=== PATIENT | male | born 1960 | race Caucasian/White ===

== ENCOUNTER → 2017-09-08 | Outpatient (CLI) | payer MEDICARE ==
[~2017-09-08] MED LIST: AMOCLA875 PO; AMOX1XR PO; ASPI81CH PO; ATOR10 PO; BREO ELLIPTA 11 EACH IH; CEFU50SU PO; DIGO.125 PO; DULO30 PO; Duoneb 2.5-0.5 M3 ML INH; ELIQUIS2.5 MG PO; FURO20 PO; FURO40 PO; GABA300 PO; GUAI600T33 PO; HYDR1TAB94 PO; LEVFLO500 PO; LEVO750 PO; LISI20 PO; Lanoxin125 MCG PO; MAGOXI400 PO; METF500 PO; METO100ER PO; METO50ER PO; MIRALAX17 GM PO; Micro-K10 MEQ; Norco 5-325 Ta1 EACH PO; OXYACE5T PO; OXYC10TA19 PO; POTASSIUM CHLO20 MEQ PO; POTCHL20ER PO; Pedi-Dri 100,0060 GM TOP; Percocet 10-321 EACH PO; Toprol Xl50 MG PO
== END | disposition home or self-care (01) ==
LOC: LAB 15:30
DX: L03.116 Cellulitis of left lower limb (principal)
CPT/HCPCS: 87070; 87205

== ENCOUNTER 2017-09-24 18:47 | Inpatient (IN) | payer MEDICARE ==
[~2017-09-24] VITALS: Ht 175.3 cm; Wt 146.0 kg
[~2017-09-24 18:47] MED LIST changes: -BREO ELLIPTA 11 EACH IH; -CEFU50SU PO
[2017-09-24 18:59] LABS: PCO2 Arterial 48.3 mmHg (35-45); PO2 Arterial 155 mmHg (80-100); pH Blood Arterial 7.28 (7.35-7.45)
[2017-09-24 19:08] LABS: BASOPHILS ABSOLUTE AUTO 0.06 K/mm3 (0.00-0.23); BASOPHILS PERCENT AUTO 1 % (0-2); EOSINOPHILS ABSOLUTE AUTO 0.05 K/mm3 (0.00-0.68); EOSINOPHILS PERCENT AUTO 1 % (0-6); Hematocrit 50.7 % (37.0-53.0); Hemoglobin 14.5 g/dL (13.5-17.5); IMMATURE GRAN ABSOLUTE AUTO 0.04 K/mm3 (0.00-0.10); IMMATURE GRAN PERCENT AUTO 1 % (0-1); LYMPHOCYTES ABSOLUTE AUTO 1.23 K/mm3 (0.84-5.20); LYMPHOCYTES PERCENT AUTO 18 % (21-46); MONOCYTES PERCENT AUTO 7 % (4-13); Mean Corpuscular HGB 25.2 pg (26.0-34.0); Mean Corpuscular HGB Conc 28.6 g/dL (31.5-36.5); Mean Corpuscular Volume 88 fL (80-100); Mean Platelet Volume 9.5 fL (9.1-12.4); NEUTROPHILS ABSOLUTE AUTO 4.94 K/mm3 (1.96-9.15); NEUTROPHILS PERCENT AUTO 73 % (41-73); Platelet Count 280 K/mm3 (150-400); RDW Coefficient Variation 18.1 % (11.7-14.2); RDW Standard Deviation 54.5 fL (35.1-46.3); Red Blood Cell Count 5.76 M/mm3 (4.30-5.90); White Blood Cell Count 6.82 K/mm3 (4.00-11.30)
[2017-09-24] MEDS ORDERED: BREO ELLIPTA 11 EACH IH (19:18)
[2017-09-24 19:22] LABS: International Normalized Ratio 1.23; Prothrombin Time Results 12.9 Sec (9.7-11.5)
[2017-09-24 19:29] LABS: Alanine Aminotransfer (ALT/SGP 15 U/L (12-78); Albumin, Blood 2.4 g/dL (3.4-5.0); Albumin/Globulin Ratio 0.5 (0.8-1.8); Alk Phos 166 U/L (50-136); Anion Gap 9 mmol/L (6-16); Aspartate Aminotrans (AST/SGOT 20 U/L (12-37); Blood Urea Nitrogen 17 mg/dL (8-24); Bun/Creatinine Ratio 19.1 (12.0-20.0); CO2, Blood 22 mmol/L (21-32); Chloride, Blood 109 mmol/L (98-108); Creatinine, Blood 0.89 mg/dL (0.60-1.20); Globulin, Blood 4.9 g/dL (2.2-4.0); Glomerular Filtration Rate >60 (60-); Glucose, Blood 111 mg/dL (70-99); Sodium, Blood 140 mmol/L (136-145); Total Protein, Blood 7.3 g/dL (6.4-8.2); Troponin I 0.018 ng/mL (0.000-0.040)
[2017-09-24 20:15] LABS: Influenza A Negative (NEGATIVE); Influenza B Negative (NEGATIVE)
[2017-09-25 05:01] LABS: BASOPHILS ABSOLUTE AUTO 0.01 K/mm3 (0.00-0.23); BASOPHILS PERCENT AUTO 0 % (0-2); EOSINOPHILS PERCENT AUTO 0 % (0-6); Hematocrit 45.7 % (37.0-53.0); Hemoglobin 13.4 g/dL (13.5-17.5); IMMATURE GRAN ABSOLUTE AUTO 0.03 K/mm3 (0.00-0.10); IMMATURE GRAN PERCENT AUTO 1 % (0-1); LYMPHOCYTES ABSOLUTE AUTO 0.32 K/mm3 (0.84-5.20); LYMPHOCYTES PERCENT AUTO 7 % (21-46); MONOCYTES ABSOLUTE AUTO 0.07 K/mm3 (0.16-1.47); MONOCYTES PERCENT AUTO 1 % (4-13); Mean Corpuscular HGB 24.9 pg (26.0-34.0); Mean Corpuscular HGB Conc 29.3 g/dL (31.5-36.5); Mean Platelet Volume 9.2 fL (9.1-12.4); NEUTROPHILS PERCENT AUTO 91 % (41-73); Platelet Count 288 K/mm3 (150-400); RDW Coefficient Variation 17.2 % (11.7-14.2); RDW Standard Deviation 53.1 fL (35.1-46.3); Red Blood Cell Count 5.39 M/mm3 (4.30-5.90); White Blood Cell Count 4.83 K/mm3 (4.00-11.30)
[2017-09-25 05:07] LABS: Mean Corpuscular Volume 85 fL (80-100)
[2017-09-25 05:40] LABS: Alanine Aminotransfer (ALT/SGP 20 U/L (12-78); Albumin, Blood 2.8 g/dL (3.4-5.0); Albumin/Globulin Ratio 0.5 (0.8-1.8); Alk Phos 193 U/L (50-136); Anion Gap 7 mmol/L (6-16); Aspartate Aminotrans (AST/SGOT 31 U/L (12-37); Bilirubin, Total 1.1 mg/dL (0.1-1.0); Blood Urea Nitrogen 21 mg/dL (8-24); Bun/Creatinine Ratio 20.4 (12.0-20.0); CO2, Blood 27 mmol/L (21-32); Chloride, Blood 101 mmol/L (98-108); Creatinine, Blood 1.03 mg/dL (0.60-1.20); Globulin, Blood 5.8 g/dL (2.2-4.0); Glomerular Filtration Rate >60 (60-); Glucose, Blood 154 mg/dL (70-99); Potassium, Blood 4.6 mmol/L (3.5-5.5); Sodium, Blood 135 mmol/L (136-145); Total Protein, Blood 8.6 g/dL (6.4-8.2)
[2017-09-25 05:43] LABS: Calcium, Blood 8.7 mg/dL (8.5-10.1)
[2017-09-25 11:45] LABS: Influenza A Negative (NEGATIVE); Influenza B Negative (NEGATIVE)
[2017-09-25 20:57] LABS: Vancomycin, Trough 35.6 ug/mL (5.0-10.0)
[2017-09-26 05:20] LABS: BASOPHILS ABSOLUTE AUTO 0.03 K/mm3 (0.00-0.23); BASOPHILS PERCENT AUTO 0 % (0-2); EOSINOPHILS ABSOLUTE AUTO 0.03 K/mm3 (0.00-0.68); EOSINOPHILS PERCENT AUTO 0 % (0-6); Hematocrit 44.7 % (37.0-53.0); Hemoglobin 13.5 g/dL (13.5-17.5); IMMATURE GRAN ABSOLUTE AUTO 0.04 K/mm3 (0.00-0.10); IMMATURE GRAN PERCENT AUTO 0 % (0-1); LYMPHOCYTES ABSOLUTE AUTO 0.95 K/mm3 (0.84-5.20); LYMPHOCYTES PERCENT AUTO 9 % (21-46); MONOCYTES ABSOLUTE AUTO 1.11 K/mm3 (0.16-1.47); MONOCYTES PERCENT AUTO 11 % (4-13); Mean Corpuscular HGB Conc 30.2 g/dL (31.5-36.5); Mean Corpuscular Volume 83 fL (80-100); Mean Platelet Volume 9.6 fL (9.1-12.4); NEUTROPHILS ABSOLUTE AUTO 8.36 K/mm3 (1.96-9.15); NEUTROPHILS PERCENT AUTO 79 % (41-73); Platelet Count 296 K/mm3 (150-400); RDW Coefficient Variation 17.2 % (11.7-14.2); RDW Standard Deviation 50.8 fL (35.1-46.3); White Blood Cell Count 10.52 K/mm3 (4.00-11.30)
[2017-09-26 05:47] LABS: Anion Gap 8 mmol/L (6-16); Blood Urea Nitrogen 29 mg/dL (8-24); Bun/Creatinine Ratio 25.7 (12.0-20.0); CO2, Blood 27 mmol/L (21-32); Calcium, Blood 8.7 mg/dL (8.5-10.1); Chloride, Blood 99 mmol/L (98-108); Creatinine, Blood 1.13 mg/dL (0.60-1.20); Glomerular Filtration Rate >60 (60-); Glucose, Blood 93 mg/dL (70-99); Potassium, Blood 4.1 mmol/L (3.5-5.5); Sodium, Blood 134 mmol/L (136-145)
[2017-09-26 05:50] LABS: Vancomycin, Random 25.1 ug/mL
[2017-09-26 21:33] LABS: Vancomycin, Random 15.4 ug/mL
[2017-09-27 05:28] LABS: Anion Gap 7 mmol/L (6-16); Blood Urea Nitrogen 31 mg/dL (8-24); CO2, Blood 29 mmol/L (21-32); Chloride, Blood 97 mmol/L (98-108); Creatinine, Blood 1.24 mg/dL (0.60-1.20); Glomerular Filtration Rate >60 (60-); Glucose, Blood 91 mg/dL (70-99); Potassium, Blood 4.2 mmol/L (3.5-5.5); Sodium, Blood 133 mmol/L (136-145)
[2017-09-27 21:04] LABS: Vancomycin, Trough 20.5 ug/mL (5.0-10.0)
[2017-09-28] MEDS ORDERED: CEFU50SU PO (12:03)
[2018-04-23] MEDS ORDERED: METO50ER PO (07:51)
== END 2017-09-28 14:27 | disposition home or self-care (01) | DRG 193 ==
LOC: ER 18:47 → SURS 20:49
PROVIDERS: Emergency Medicine; Family Medicine; Internal Medicine; Pharmacist
DX: J18.9 Pneumonia, unspecified organism (principal); J96.01 Acute respiratory failure with hypoxia; E11.610 Type 2 diabetes mellitus with diabetic neuropathic arthropathy; E11.65 Type 2 diabetes mellitus with hyperglycemia; R16.1 Splenomegaly, not elsewhere classified; E66.01 Morbid (severe) obesity due to excess calories; J44.0 Chronic obstructive pulmonary disease with (acute) lower respiratory infection; I83.209 Varicose veins of unspecified lower extremity with both ulcer of unspecified site and inflammation; L97.919 Non-pressure chronic ulcer of unspecified part of right lower leg with unspecified severity; L97.929 Non-pressure chronic ulcer of unspecified part of left lower leg with unspecified severity; Z68.43 Body mass index [BMI] 50.0-59.9, adult; I11.0 Hypertensive heart disease with heart failure; I50.9 Heart failure, unspecified; I48.2 Chronic atrial fibrillation; F17.210 Nicotine dependence, cigarettes, uncomplicated; G47.33 Obstructive sleep apnea (adult) (pediatric); E78.5 Hyperlipidemia, unspecified; F32.9 Major depressive disorder, single episode, unspecified; F41.9 Anxiety disorder, unspecified; M19.90 Unspecified osteoarthritis, unspecified site; I89.0 Lymphedema, not elsewhere classified; I25.10 Atherosclerotic heart disease of native coronary artery without angina pectoris; R00.0 Tachycardia, unspecified; R19.7 Diarrhea, unspecified; Z79.82 Long term (current) use of aspirin; Z79.899 Other long term (current) drug therapy; Z79.01 Long term (current) use of anticoagulants; Z79.84 Long term (current) use of oral hypoglycemic drugs; Z89.422 Acquired absence of other left toe(s); Z88.1 Allergy status to other antibiotic agents
CPT/HCPCS: 36415; 36600; 71045; 71046; 71260; 80048; 80053; 80202; 82803; 82947; 83605; 83880; 84484; 85025; 85610; 85730; 87040; 87449; 87804; 93005; 93010; 94640; 94644; 94660; 94762; 96365; 96366; 96367; 96375; 97161; 97165; 97530; 99285; G8978; G8979; G8987; G8988; G8989; J0456; J1100; J1940; J2543; J3370; J7030; J7050; Q9967

== ENCOUNTER → 2017-11-11 | Outpatient (CLI) | payer MEDICARE ==
[~2017-11-11] MED LIST changes: +BREO ELLIPTA 11 EACH IH; +CEFU50SU PO
== END | disposition home or self-care (01) ==
LOC: LAB 14:30
DX: L03.116 Cellulitis of left lower limb (principal)
CPT/HCPCS: 87070; 87077; 87147; 87186; 87205

== ENCOUNTER → 2018-05-24 | Outpatient (CLI) | payer OTHER | LOC: PLD 07:39 → LAB SHORT 07:39 | DX: E11.621 Type 2 diabetes mellitus with foot ulcer (principal); L97.422 Non-pressure chronic ulcer of left heel and midfoot with fat layer exposed | CPT/HCPCS: 88305 ==

== ENCOUNTER 2018-10-05 12:01 | Inpatient (IN) | payer OTHER ==
[~2018-10-05] VITALS: Ht 175.3 cm; Wt 165.9 kg
[2018-10-05 13:52] LABS: BASOPHILS ABSOLUTE AUTO 0.03 K/mm3 (0.00-0.23); BASOPHILS PERCENT AUTO 0 % (0-2); EOSINOPHILS ABSOLUTE AUTO 0.17 K/mm3 (0.00-0.68); EOSINOPHILS PERCENT AUTO 2 % (0-6); Hematocrit 49.8 % (37.0-53.0); Hemoglobin 15.1 g/dL (13.5-17.5); IMMATURE GRAN ABSOLUTE AUTO 0.02 K/mm3 (0.00-0.10); IMMATURE GRAN PERCENT AUTO 0 % (0-1); LYMPHOCYTES ABSOLUTE AUTO 0.65 K/mm3 (0.84-5.20); LYMPHOCYTES PERCENT AUTO 8 % (21-46); MONOCYTES ABSOLUTE AUTO 0.97 K/mm3 (0.16-1.47); MONOCYTES PERCENT AUTO 12 % (4-13); Mean Corpuscular HGB 27.2 pg (26.0-34.0); Mean Corpuscular HGB Conc 30.3 g/dL (31.5-36.5); Mean Corpuscular Volume 90 fL (80-100); Mean Platelet Volume 9.1 fL (9.1-12.4); NEUTROPHILS PERCENT AUTO 77 % (41-73); Platelet Count 236 K/mm3 (150-400); RDW Coefficient Variation 16.9 % (11.7-14.2); RDW Standard Deviation 54.8 fL (35.1-46.3); Red Blood Cell Count 5.56 M/mm3 (4.30-5.90); White Blood Cell Count 8.14 K/mm3 (4.00-11.30)
[2018-10-05 14:20] LABS: Alanine Aminotransfer (ALT/SGP 37 U/L (12-78); Albumin, Blood 3.1 g/dL (3.4-5.0); Albumin/Globulin Ratio 0.6 (0.8-1.8); Alk Phos 159 U/L (50-136); Anion Gap 7 mmol/L (6-16); Aspartate Aminotrans (AST/SGOT 33 U/L (12-37); Bilirubin, Total 0.9 mg/dL (0.1-1.0); Blood Urea Nitrogen 22 mg/dL (8-24); Bun/Creatinine Ratio 19.3 (12.0-20.0); CO2, Blood 27 mmol/L (21-32); Calcium, Blood 8.9 mg/dL (8.5-10.1); Chloride, Blood 99 mmol/L (98-108); Creatinine, Blood 1.14 mg/dL (0.60-1.20); Globulin, Blood 5.6 g/dL (2.2-4.0); Glomerular Filtration Rate >60 (60-); Glucose, Blood 86 mg/dL (70-99); Sodium, Blood 133 mmol/L (136-145); Total Protein, Blood 8.7 g/dL (6.4-8.2)
[2018-10-05 20:53] LABS: International Normalized Ratio 1.08; Prothrombin Time Results 11.4 Sec (9.7-11.5)
[2018-10-05 23:16] LABS: Source, Urine Clean Catch
[2018-10-05 23:22] LABS: Appearance, Urine Clear (Clear); Bilirubin, Urine Neg (Neg); Blood, Urine Neg (Neg); Color, Urine Yellow (P-Yellow); Glucose Qualitative, Urine Neg (Neg); Ketones, Urine Neg (Neg); Leukocyte Esterase, Urine Neg (Neg); Nitrite, Urine Neg (Neg); Protein, Urine Neg (Neg); Specific Gravity, Urine 1.005 (1.003-1.022); Urobilinogen, Urine NORM (Normal)
[2018-10-06 05:12] LABS: BASOPHILS ABSOLUTE AUTO 0.03 K/mm3 (0.00-0.23); BASOPHILS PERCENT AUTO 0 % (0-2); EOSINOPHILS ABSOLUTE AUTO 0.15 K/mm3 (0.00-0.68); EOSINOPHILS PERCENT AUTO 2 % (0-6); Hematocrit 45.9 % (37.0-53.0); Hemoglobin 13.7 g/dL (13.5-17.5); IMMATURE GRAN ABSOLUTE AUTO 0.03 K/mm3 (0.00-0.10); IMMATURE GRAN PERCENT AUTO 0 % (0-1); LYMPHOCYTES ABSOLUTE AUTO 0.49 K/mm3 (0.84-5.20); LYMPHOCYTES PERCENT AUTO 6 % (21-46); MONOCYTES ABSOLUTE AUTO 1.18 K/mm3 (0.16-1.47); MONOCYTES PERCENT AUTO 14 % (4-13); Mean Corpuscular HGB Conc 29.8 g/dL (31.5-36.5); Mean Corpuscular Volume 90 fL (80-100); Mean Platelet Volume 9.5 fL (9.1-12.4); NEUTROPHILS PERCENT AUTO 77 % (41-73); Platelet Count 212 K/mm3 (150-400); RDW Coefficient Variation 16.5 % (11.7-14.2); RDW Standard Deviation 54.8 fL (35.1-46.3); Red Blood Cell Count 5.08 M/mm3 (4.30-5.90); White Blood Cell Count 8.28 K/mm3 (4.00-11.30)
[2018-10-06 05:38] LABS: Albumin, Blood 2.5 g/dL (3.4-5.0); Anion Gap 7 mmol/L (6-16); Blood Urea Nitrogen 20 mg/dL (8-24); Bun/Creatinine Ratio 17.5 (12.0-20.0); CO2, Blood 26 mmol/L (21-32); Calcium, Blood 8.4 mg/dL (8.5-10.1); Chloride, Blood 105 mmol/L (98-108); Creatinine, Blood 1.14 mg/dL (0.60-1.20); Glomerular Filtration Rate >60 (60-); Glucose, Blood 96 mg/dL (70-99); Phosphorus, Blood 3.3 mg/dL (2.5-4.9); Potassium, Blood 4.4 mmol/L (3.5-5.5); Sodium, Blood 138 mmol/L (136-145)
--- NOTE | 2018-10-06 07:33 | NUR ---
a+o, legs painful but wrapped in kerlex and bora, call light in reach, room air but states he uses 02 at home, saline locked, got 4000 ns this am, walking rounds completed with day staff
--- NOTE | 2018-10-06 19:11 | NUR ---
SHIFT SUMMARY OX3; REQUIRING IV DILAUDID Q3HRS FOR BLE PAIN/SWELLING. OOB TO BATHROOM STANDBY ASSIST. XRALETO. LASIX. PLEASANT. EATING AND DRINKING WELL.
--- NOTE | 2018-10-07 05:12 | NUR ---
SHIFT SUMMARY THE PATIENT PRESENTED AT THE START OF THE SHIFT WITH VITAL WNL, A&O X4, AND WITH LUNGS THAT WERE CLEAR. THE PATIENTHAS BEEN UP AND DOWN ALL SHIFT, GOING TO THE RESTROOM AND REQUESTING PAIN MEDICATIONS. THE PATIENT SEEMS SOME WHAT RESTLESS. THE PATIENT IS PLEASANT TO VISIT WITH. THE PATIENT IS RESTING AT THIS TIME, WILL CONTINUE TO MONITOR.
--- NOTE | 2018-10-07 16:18 | NUR ---
SHIFT SUMMARY NO ACUTE CHANGES. PATIENT DENIES NAUSEA OR SHORTNESS OF BREATH. MEDICATED SEVERAL TIMES DURING SHIFT FOR PAIN. CELLULITIS WOUNDS CLEANSED AND REDRESSED AFTER PATIENT SHOWERED. CALL LIGHT IN REACH, WILL CONTINUE TO MONITOR.
--- NOTE | 2018-10-08 04:37 | NUR ---
SHIFT SUMMARY NO CHANGES OVERNIGHT. PT HAS REQUESTED PAIN MEDICATION Q3HR AROUND THE CLOCK FOR THE CELLULTIS PAIN IN HIS LEGS. MEDICATED PER EMAR ORDERS WITH DILAUDID. DRGS INTACT TO BLE. PER DAYSHIFT RN REPORT, DAILY DRG CHANGES PER KHUSHBU EUCEDA AND KEENAN FRENCH. IV ABX INFUSED ORDERED. WILL CONTINUE TO MONITOR AND REPORT TO ONCOMING RN.
--- NOTE | 2018-10-08 08:00 | NUR ---
PT PLEASANT COOP A/O STATES PAIN IN LEGS. MED PER EMAR. H/R REG, NO MURMER NOTED. IS TACHY. DR BAILEY NOTIFIED. NO TELE. LUNGS CLEAR, REWP EASY, UNLABORED. ON R/A. BT X4 LAST BM YEST. VOIDS PER BATHROOM. INDEPENDANT TO SBA WITH LINES. BED IN LOW POSITION,C ALL LITE IN REACH. CALLS APPROP. LEGS REG TO GROIN. NOTIFIED.
--- NOTE | 2018-10-08 14:11 | NUR ---
SPOKE TO DR BAILEY. [facility]. DONE
--- NOTE | 2018-10-08 19:25 | NUR ---
PT HAS BEEN PLEASANT TODAY. IV PAIN MEDS WERE STOPPED LAST SHIFT. DID GET NORCO MOVED FROM Q8 TO Q6, PT STATES APPRECIATES. NO OTHER CONCERNS AT THIS TIME. BED IN LOW [id number], CALL LITE IN REACH, CALLS APPROP
[2018-10-08 19:39] LABS: Vancomycin, Trough 22.5 ug/mL (5.0-10.0)
--- NOTE | 2018-10-09 04:35 | NUR ---
SHIFT SUMMARY PT ADMITTED FOR SEPSIS DUE TO CELLULITIS. HE WAS EVALUATED FOR THE POSSIBILITY OF VENOUS STASIS. HE IS ON RA AT THIS TIME, BUT USES 2 LPM AT HOME PRN AT NIGHT. HE IS INDEPENDENT IN THE ROOM. HE IS MORBIDLY OBESE. HIS MOBILITY IS LIMITED BY THE CELLULITIS AND OBESITY. HE HAS N/T IN THE BUE AND BLE. IV VANCO IS MANAGED BY PHARMACY.
[2018-10-09 05:12] LABS: BASOPHILS ABSOLUTE AUTO 0.04 K/mm3 (0.00-0.23); BASOPHILS PERCENT AUTO 1 % (0-2); EOSINOPHILS ABSOLUTE AUTO 0.43 K/mm3 (0.00-0.68); EOSINOPHILS PERCENT AUTO 7 % (0-6); Hematocrit 45.6 % (37.0-53.0); Hemoglobin 14.1 g/dL (13.5-17.5); IMMATURE GRAN ABSOLUTE AUTO 0.01 K/mm3 (0.00-0.10); IMMATURE GRAN PERCENT AUTO 0 % (0-1); LYMPHOCYTES ABSOLUTE AUTO 0.74 K/mm3 (0.84-5.20); LYMPHOCYTES PERCENT AUTO 11 % (21-46); MONOCYTES ABSOLUTE AUTO 0.74 K/mm3 (0.16-1.47); MONOCYTES PERCENT AUTO 11 % (4-13); Mean Corpuscular HGB 27.1 pg (26.0-34.0); Mean Corpuscular HGB Conc 30.9 g/dL (31.5-36.5); Mean Corpuscular Volume 88 fL (80-100); Mean Platelet Volume 9.2 fL (9.1-12.4); NEUTROPHILS ABSOLUTE AUTO 4.61 K/mm3 (1.96-9.15); NEUTROPHILS PERCENT AUTO 70 % (41-73); Platelet Count 210 K/mm3 (150-400); RDW Coefficient Variation 16.1 % (11.7-14.2); RDW Standard Deviation 51.7 fL (35.1-46.3); White Blood Cell Count 6.57 K/mm3 (4.00-11.30)
[2018-10-09 05:27] LABS: Anion Gap 8 mmol/L (6-16); Blood Urea Nitrogen 19 mg/dL (8-24); Bun/Creatinine Ratio 16.8 (12.0-20.0); CO2, Blood 26 mmol/L (21-32); Calcium, Blood 9.1 mg/dL (8.5-10.1); Chloride, Blood 104 mmol/L (98-108); Creatinine, Blood 1.13 mg/dL (0.60-1.20); Glomerular Filtration Rate >60 (60-); Glucose, Blood 104 mg/dL (70-99); Potassium, Blood 3.9 mmol/L (3.5-5.5); Sodium, Blood 138 mmol/L (136-145)
[2018-10-09] MEDS ORDERED: ATOR20 PO (16:13)
--- NOTE | 2018-10-09 17:02 | NUR ---
DISCHARGE NOTE- PT DISCHARGED HOME TODAY, AND IS TO CONTINUE PREVIOUS HOME HEALTH REGIMEN, UNNA BOOTS PLACED PRIOR TO DISCHARGE. PT WAS GIVEN VERBAL AND WRITTEN DISCHARGE INSTRUCTIONS AND ACKNOWLEDGED UNDERSTANDING OF THEM. PT ORDER FOR METOPROLOL CHANGED, DISCUSSED WITH PT (DOSE CHANGE AND NEW PARAMETERS). PT ESCORTED OUT VIA W/C BY THE ETHICS MANAGER, NO FURTHER QUESTIONS AT THE TIME OF DISCHARGE, IV DC'D PRIOR TO DISCHARGE.
== END 2018-10-09 16:56 | disposition home health service (06) | DRG 872 ==
LOC: ER 12:01 → ERHOLD 18:16 → MEDS 18:16 → ENPENDDIS 10-09 14:00 → MEDS 10-09 16:56
PROVIDERS: Physician Assistant; Student in an Organized Health Care Education/Training Program; ADMIT Family Medicine
DX: A41.89 Other specified sepsis (principal); L03.116 Cellulitis of left lower limb; L03.115 Cellulitis of right lower limb; L97.329 Non-pressure chronic ulcer of left ankle with unspecified severity; Z68.43 Body mass index [BMI] 50.0-59.9, adult; E11.622 Type 2 diabetes mellitus with other skin ulcer; I48.91 Unspecified atrial fibrillation; E66.01 Morbid (severe) obesity due to excess calories; I11.0 Hypertensive heart disease with heart failure; I50.9 Heart failure, unspecified; F17.210 Nicotine dependence, cigarettes, uncomplicated; M19.90 Unspecified osteoarthritis, unspecified site; G47.33 Obstructive sleep apnea (adult) (pediatric); E78.5 Hyperlipidemia, unspecified; G89.4 Chronic pain syndrome; I87.2 Venous insufficiency (chronic) (peripheral); Z88.1 Allergy status to other antibiotic agents; Z89.422 Acquired absence of other left toe(s); Z79.02 Long term (current) use of antithrombotics/antiplatelets; Z79.82 Long term (current) use of aspirin; Z79.891 Long term (current) use of opiate analgesic; Z79.51 Long term (current) use of inhaled steroids; Z79.899 Other long term (current) drug therapy
CPT/HCPCS: 36415; 80048; 80053; 80069; 80202; 81003; 82947; 83036; 83605; 83880; 84145; 85025; 85610; 85730; 87040; 93005; 93010; 93922; 93925; 94640; 94760; 96365; 96367; 96375; 99285-25; J0696; J1170; J1644; J1940; J2270; J2405; J2543; J3010; J3370; J7030; J7050

== ENCOUNTER 2019-02-21 20:42 | Inpatient (IN) | payer OTHER ==
[~2019-02-21] VITALS: Ht 175.3 cm; Wt 176.0 kg
[~2019-02-21 20:42] MED LIST changes: +ATOR20 PO
[2019-02-21 21:20] LABS: BASOPHILS ABSOLUTE AUTO 0.05 K/mm3 (0.00-0.23); BASOPHILS PERCENT AUTO 1 % (0-2); EOSINOPHILS ABSOLUTE AUTO 0.24 K/mm3 (0.00-0.68); EOSINOPHILS PERCENT AUTO 4 % (0-6); Hematocrit 45.7 % (37.0-53.0); Hemoglobin 13.7 g/dL (13.5-17.5); IMMATURE GRAN ABSOLUTE AUTO 0.02 K/mm3 (0.00-0.10); IMMATURE GRAN PERCENT AUTO 0 % (0-1); LYMPHOCYTES ABSOLUTE AUTO 0.86 K/mm3 (0.84-5.20); LYMPHOCYTES PERCENT AUTO 13 % (21-46); MONOCYTES ABSOLUTE AUTO 0.84 K/mm3 (0.16-1.47); MONOCYTES PERCENT AUTO 12 % (4-13); Mean Corpuscular HGB 27.1 pg (26.0-34.0); Mean Corpuscular Volume 91 fL (80-100); Mean Platelet Volume 10.1 fL (9.1-12.4); NEUTROPHILS ABSOLUTE AUTO 4.84 K/mm3 (1.96-9.15); NEUTROPHILS PERCENT AUTO 71 % (41-73); Platelet Count 235 K/mm3 (150-400); RDW Coefficient Variation 15.9 % (11.7-14.2); RDW Standard Deviation 51.8 fL (35.1-46.3); Red Blood Cell Count 5.05 M/mm3 (4.30-5.90); White Blood Cell Count 6.85 K/mm3 (4.00-11.30)
[2019-02-21 21:40] LABS: Alanine Aminotransfer (ALT/SGP 19 U/L (12-78); Albumin/Globulin Ratio 0.6 (0.8-1.8); Alk Phos 135 U/L (50-136); Anion Gap 6 mmol/L (6-16); Aspartate Aminotrans (AST/SGOT 34 U/L (12-37); Blood Urea Nitrogen 21 mg/dL (8-24); Bun/Creatinine Ratio 18.6 (12.0-20.0); CO2, Blood 24 mmol/L (21-32); Chloride, Blood 107 mmol/L (98-108); Creatinine, Blood 1.13 mg/dL (0.60-1.20); Globulin, Blood 5.3 g/dL (2.2-4.0); Glomerular Filtration Rate >60 (60-); Glucose, Blood 94 mg/dL (70-99); Potassium, Blood 5.2 mmol/L (3.5-5.5); Sodium, Blood 137 mmol/L (136-145); Total Protein, Blood 8.3 g/dL (6.4-8.2); Troponin I <0.015 ng/mL (0.000-0.040)
[2019-02-22 05:03] LABS: PCO2 Arterial 33.3 mmHg (35-45); PO2 Arterial 66.1 mmHg (80-100)
[2019-02-22 05:32] LABS: Hematocrit 46.2 % (37.0-53.0); Mean Corpuscular HGB 27.1 pg (26.0-34.0); Mean Corpuscular HGB Conc 30.3 g/dL (31.5-36.5); Mean Corpuscular Volume 89 fL (80-100); Mean Platelet Volume 9.9 fL (9.1-12.4); Platelet Count 231 K/mm3 (150-400); RDW Coefficient Variation 15.8 % (11.7-14.2); RDW Standard Deviation 51.6 fL (35.1-46.3); Red Blood Cell Count 5.17 M/mm3 (4.30-5.90); White Blood Cell Count 6.17 K/mm3 (4.00-11.30)
[2019-02-22 05:51] LABS: Alanine Aminotransfer (ALT/SGP 15 U/L (12-78); Albumin, Blood 3.2 g/dL (3.4-5.0); Albumin/Globulin Ratio 0.6 (0.8-1.8); Alk Phos 134 U/L (50-136); Anion Gap 8 mmol/L (6-16); Aspartate Aminotrans (AST/SGOT 19 U/L (12-37); Bilirubin, Total 1.3 mg/dL (0.1-1.0); Blood Urea Nitrogen 22 mg/dL (8-24); Bun/Creatinine Ratio 21.6 (12.0-20.0); CO2, Blood 22 mmol/L (21-32); CPK Creatine Kinase 50 U/L (39-308); Chloride, Blood 107 mmol/L (98-108); Creatinine, Blood 1.02 mg/dL (0.60-1.20); Globulin, Blood 5.1 g/dL (2.2-4.0); Glomerular Filtration Rate >60 (60-); Glucose, Blood 135 mg/dL (70-99); Potassium, Blood 4.4 mmol/L (3.5-5.5); Sodium, Blood 137 mmol/L (136-145); Total Protein, Blood 8.3 g/dL (6.4-8.2); Troponin I <0.015 ng/mL (0.000-0.040)
[2019-02-22 14:05] LABS: CPK Creatine Kinase 58 U/L (39-308); Troponin I <0.015 ng/mL (0.000-0.040)
[2019-02-23 04:43] LABS: CHOL/HDL RATIO 2.8; Cholesterol 87 mg/dL (50-200); HDL Cholesterol 31 mg/dL (>39); LDL/HDL RATIO 1.4; Low Density Lipoprotein Chol 44 mg/dL (0-110); Triglycerides 60 mg/dL (30-160); Very Low Density Lipoprot Chol 12 mg/dL (6-32)
[2019-02-23 07:26] LABS: BASOPHILS ABSOLUTE AUTO 0.01 K/mm3 (0.00-0.23); BASOPHILS PERCENT AUTO 0 % (0-2); EOSINOPHILS ABSOLUTE AUTO 0.01 K/mm3 (0.00-0.68); EOSINOPHILS PERCENT AUTO 0 % (0-6); Hematocrit 44.4 % (37.0-53.0); Hemoglobin 13.4 g/dL (13.5-17.5); IMMATURE GRAN ABSOLUTE AUTO 0.04 K/mm3 (0.00-0.10); IMMATURE GRAN PERCENT AUTO 1 % (0-1); LYMPHOCYTES ABSOLUTE AUTO 0.33 K/mm3 (0.84-5.20); LYMPHOCYTES PERCENT AUTO 4 % (21-46); MONOCYTES ABSOLUTE AUTO 0.25 K/mm3 (0.16-1.47); MONOCYTES PERCENT AUTO 3 % (4-13); Mean Corpuscular HGB 26.6 pg (26.0-34.0); Mean Corpuscular HGB Conc 30.2 g/dL (31.5-36.5); Mean Corpuscular Volume 88 fL (80-100); Mean Platelet Volume 10.5 fL (9.1-12.4); NEUTROPHILS ABSOLUTE AUTO 7.52 K/mm3 (1.96-9.15); NEUTROPHILS PERCENT AUTO 92 % (41-73); Platelet Count 229 K/mm3 (150-400); RDW Coefficient Variation 15.9 % (11.7-14.2); RDW Standard Deviation 51.3 fL (35.1-46.3); Red Blood Cell Count 5.03 M/mm3 (4.30-5.90); White Blood Cell Count 8.16 K/mm3 (4.00-11.30)
[2019-02-23 07:44] LABS: Anion Gap 8 mmol/L (6-16); Blood Urea Nitrogen 24 mg/dL (8-24); Bun/Creatinine Ratio 24.4 (12.0-20.0); CO2, Blood 23 mmol/L (21-32); Calcium, Blood 8.9 mg/dL (8.5-10.1); Chloride, Blood 105 mmol/L (98-108); Creatinine, Blood 0.99 mg/dL (0.60-1.20); Free Thyroxine 1.68 ng/dL (0.70-1.60); Glomerular Filtration Rate >60 (60-); Glucose, Blood 158 mg/dL (70-99); Potassium, Blood 4.4 mmol/L (3.5-5.5); Sodium, Blood 136 mmol/L (136-145)
[2019-02-23 10:06] LABS: Source, Urine Clean Catch
[2019-02-23 10:15] LABS: Bilirubin, Urine Neg (Neg); Blood, Urine Neg (Neg); Glucose Qualitative, Urine Neg (Neg); Ketones, Urine Neg (Neg); Leukocyte Esterase, Urine Neg (Neg); Nitrite, Urine Neg (Neg); Protein, Urine 1+ (Neg); Urobilinogen, Urine NORM (Normal)
[2019-02-23 10:17] LABS: Appearance, Urine Clear (Clear); Color, Urine Yellow (P-Yellow)
[2019-02-24 02:56] LABS: Adenovirus Not Detected (NOT DETECT); Bordetella pertussis Not Detected (NOT DETECT); Chlamydophila pneumoniae Not Detected (NOT DETECT); Coronavirus 229E Not Detected (NOT DETECT); Coronavirus HKU1 Not Detected (NOT DETECT); Coronavirus NL63 Not Detected (NOT DETECT); Coronavirus OC43 Not Detected (NOT DETECT); Human Metapneumovirus Not Detected (NOT DETECT); Human Rhinovirus/Enterovirus Not Detected (NOT DETECT); Influenza A Not Detected (NOT DETECT); Influenza A/2009-H1 Not Detected (NOT DETECT); Influenza A/H1 Not Detected (NOT DETECT); Influenza A/H3 Not Detected (NOT DETECT); Influenza B Not Detected (NOT DETECT); Mycoplasma pneumoniae Not Detected (NOT DETECT); Parainfluenza Virus 1 Not Detected (NOT DETECT); Parainfluenza Virus 2 Not Detected (NOT DETECT); Parainfluenza Virus 3 Not Detected (NOT DETECT); Parainfluenza Virus 4 Not Detected (NOT DETECT); Respiratory Syncytial Virus Not Detected (NOT DETECT)
[2019-02-24] MEDS ORDERED: FURO20 PO (10:58)
[2019-02-24] MEDS ORDERED: DILT180 PO (11:21)
[2019-02-24] MEDS ORDERED: AZIT500 PO (11:22)
[2019-02-24] MEDS ORDERED: CEFD300 PO (11:22)
== END 2019-02-24 14:23 | disposition home or self-care (01) | DRG 291 ==
LOC: ER 20:42 → PCU 02-22 04:56
PROVIDERS: Internal Medicine Cardiovascular Disease; Physician Assistant; ADMIT Internal Medicine
PROC: 5A09357 Assistance with Respiratory Ventilation, Less than 24 Consecutive Hours, Continuous Positive Airway Pressure (ICD-10-PCS; principal; 2019-02-22)
DX: I11.0 Hypertensive heart disease with heart failure (principal); J18.9 Pneumonia, unspecified organism; J96.21 Acute and chronic respiratory failure with hypoxia; I48.92 Unspecified atrial flutter; J44.1 Chronic obstructive pulmonary disease with (acute) exacerbation; J44.0 Chronic obstructive pulmonary disease with (acute) lower respiratory infection; I50.33 Acute on chronic diastolic (congestive) heart failure; I27.81 Cor pulmonale (chronic); R59.0 Localized enlarged lymph nodes; E05.90 Thyrotoxicosis, unspecified without thyrotoxic crisis or storm; I48.91 Unspecified atrial fibrillation; E66.01 Morbid (severe) obesity due to excess calories; L97.529 Non-pressure chronic ulcer of other part of left foot with unspecified severity; L97.519 Non-pressure chronic ulcer of other part of right foot with unspecified severity; F32.9 Major depressive disorder, single episode, unspecified; G47.33 Obstructive sleep apnea (adult) (pediatric); I27.20 Pulmonary hypertension, unspecified; I87.2 Venous insufficiency (chronic) (peripheral); F17.210 Nicotine dependence, cigarettes, uncomplicated; E11.51 Type 2 diabetes mellitus with diabetic peripheral angiopathy without gangrene; E11.621 Type 2 diabetes mellitus with foot ulcer; Z89.422 Acquired absence of other left toe(s); Z79.82 Long term (current) use of aspirin; Z79.4 Long term (current) use of insulin; Z79.899 Other long term (current) drug therapy
CPT/HCPCS: 36415; 36600; 71046; 71260; 80048; 80053; 80061; 82550; 82803; 82947; 83605; 83880; 84145; 84439; 84443; 84484; 85025; 85027; 87040; 87486; 87581; 87633; 87798; 93005; 93010; 94640; 94660; 94760; 94762; 96374-59; 96375-59; 97110; 97116; 97161; 97165; 97530; 97535; 99285-25; C8929; J0360; J0456; J0696; J1940; J2930; J3010; J7050; J7512; Q9957; Q9967

== ENCOUNTER 2019-06-24 14:49 | Inpatient (IN) | payer OTHER ==
[~2019-06-24] VITALS: Ht 175.3 cm; Wt 202.3 kg
[~2019-06-24 14:49] MED LIST changes: -ASPI81CH PO; +AZIT500 PO; -BREO ELLIPTA 11 EACH IH; +CEFD300 PO; +DILT180 PO; -Duoneb 2.5-0.5 M3 ML INH; -LISI20 PO
[2019-06-24 15:22] LABS: BASOPHILS ABSOLUTE AUTO 0.04 K/mm3 (0.00-0.23); BASOPHILS PERCENT AUTO 1 % (0-2); EOSINOPHILS ABSOLUTE AUTO 0.26 K/mm3 (0.00-0.68); EOSINOPHILS PERCENT AUTO 5 % (0-6); Hemoglobin 14.2 g/dL (13.5-17.5); IMMATURE GRAN ABSOLUTE AUTO 0.03 K/mm3 (0.00-0.10); IMMATURE GRAN PERCENT AUTO 1 % (0-1); LYMPHOCYTES ABSOLUTE AUTO 0.61 K/mm3 (0.84-5.20); LYMPHOCYTES PERCENT AUTO 11 % (21-46); MONOCYTES ABSOLUTE AUTO 0.36 K/mm3 (0.16-1.47); MONOCYTES PERCENT AUTO 7 % (4-13); Mean Corpuscular HGB 26.1 pg (26.0-34.0); Mean Corpuscular HGB Conc 29.6 g/dL (31.5-36.5); Mean Platelet Volume 9.9 fL (9.1-12.4); NEUTROPHILS ABSOLUTE AUTO 4.17 K/mm3 (1.96-9.15); NEUTROPHILS PERCENT AUTO 76 % (41-73); Platelet Count 200 K/mm3 (150-400); RDW Coefficient Variation 19.6 % (11.7-14.2); RDW Standard Deviation 61.5 fL (35.1-46.3); Red Blood Cell Count 5.45 M/mm3 (4.30-5.90); White Blood Cell Count 5.47 K/mm3 (4.00-11.30)
[2019-06-24 15:23] LABS: Mean Corpuscular Volume 88 fL (80-100)
[2019-06-24 15:37] LABS: Alanine Aminotransfer (ALT/SGP 16 U/L (12-78); Albumin, Blood 3.2 g/dL (3.4-5.0); Albumin/Globulin Ratio 0.6 (0.8-1.8); Alk Phos 124 U/L (50-136); Anion Gap 7 mmol/L (6-16); Aspartate Aminotrans (AST/SGOT 24 U/L (12-37); Bilirubin, Total 1.7 mg/dL (0.1-1.0); Blood Urea Nitrogen 19 mg/dL (8-24); CO2, Blood 24 mmol/L (21-32); Calcium, Blood 9.4 mg/dL (8.5-10.1); Chloride, Blood 104 mmol/L (98-108); Creatinine, Blood 1.19 mg/dL (0.60-1.20); Globulin, Blood 5.2 g/dL (2.2-4.0); Glomerular Filtration Rate >60 (60-); Glucose, Blood 68 mg/dL (70-99); Potassium, Blood 4.7 mmol/L (3.5-5.5); Sodium, Blood 135 mmol/L (136-145); Total Protein, Blood 8.4 g/dL (6.4-8.2); Troponin I <0.015 ng/mL (0.000-0.040)
[2019-06-24] MEDS ORDERED: METO50ER PO (18:15)
[2019-06-24] MEDS ORDERED: OXYC1TAB11 PO (18:16)
[2019-06-24] MEDS ORDERED: ELIQUIS5 MG PO (18:17)
[2019-06-24] MEDS ORDERED: CYCL10 PO (18:17)
[2019-06-24] MEDS ORDERED: ALBU3IS NEB (18:19)
[2019-06-24] MEDS ORDERED: GABA300 PO (18:20)
[2019-06-24] MEDS ORDERED: BREO ELLIPTA 11 EACH INH (18:20)
[2019-06-24] MEDS ORDERED: FURO40 PO (18:21)
[2019-06-24] MEDS ORDERED: LISI20 PO (18:22)
[2019-06-24] MEDS ORDERED: POTA10T PO (18:22)
[2019-06-24] MEDS ORDERED: Aspir 8181 MG PO (18:28)
[2019-06-25 04:16] LABS: BASOPHILS ABSOLUTE AUTO 0.05 K/mm3 (0.00-0.23); BASOPHILS PERCENT AUTO 1 % (0-2); EOSINOPHILS ABSOLUTE AUTO 0.23 K/mm3 (0.00-0.68); EOSINOPHILS PERCENT AUTO 4 % (0-6); Hematocrit 41.3 % (37.0-53.0); Hemoglobin 12.4 g/dL (13.5-17.5); IMMATURE GRAN ABSOLUTE AUTO 0.02 K/mm3 (0.00-0.10); IMMATURE GRAN PERCENT AUTO 0 % (0-1); LYMPHOCYTES PERCENT AUTO 8 % (21-46); MONOCYTES ABSOLUTE AUTO 0.57 K/mm3 (0.16-1.47); MONOCYTES PERCENT AUTO 9 % (4-13); Mean Corpuscular HGB 26.1 pg (26.0-34.0); Mean Corpuscular Volume 87 fL (80-100); Mean Platelet Volume 10.1 fL (9.1-12.4); NEUTROPHILS ABSOLUTE AUTO 4.77 K/mm3 (1.96-9.15); NEUTROPHILS PERCENT AUTO 78 % (41-73); Platelet Count 170 K/mm3 (150-400); RDW Coefficient Variation 19.1 % (11.7-14.2); Red Blood Cell Count 4.75 M/mm3 (4.30-5.90); White Blood Cell Count 6.14 K/mm3 (4.00-11.30)
--- NOTE | 2019-06-25 04:29 | NUR ---
SHIFT SUMMARY PT ARRIVED TO FLOOR IN NO DISTRESS. PT IS WEAK AND UNSTEADY ON HIS FEET. PT ON TELE WITH NO ACUTE EVENTS NOTED. PT HAS ONGOING LYMPHADEMA WITH HEAVY SCABBING NOTED BLE. PT HAS JIA BOOTS PLACED BY HOME HEALTH. PT HAS SOME SOB WITH EXERTION. PT HAS NOTED FUNGAL INFECTION PHYLLIS AREA/ PANUS, NYSTATIN CREAM APPLIED. PT HAS BEEN EATING AND DRINKING W/O ISSUE.
[2019-06-25 04:38] LABS: Anion Gap 5 mmol/L (6-16); Blood Urea Nitrogen 22 mg/dL (8-24); Bun/Creatinine Ratio 17.3 (12.0-20.0); CO2, Blood 25 mmol/L (21-32); Calcium, Blood 8.6 mg/dL (8.5-10.1); Chloride, Blood 106 mmol/L (98-108); Creatinine, Blood 1.27 mg/dL (0.60-1.20); Glomerular Filtration Rate >60 (60-); Glucose, Blood 98 mg/dL (70-99); Potassium, Blood 4.3 mmol/L (3.5-5.5); Sodium, Blood 136 mmol/L (136-145)
[2019-06-25 04:47] LABS: Adenovirus Not Detected (NOT DETECT); Bordetella pertussis Not Detected (NOT DETECT); Chlamydophila pneumoniae Not Detected (NOT DETECT); Coronavirus 229E Not Detected (NOT DETECT); Coronavirus HKU1 Not Detected (NOT DETECT); Coronavirus NL63 Not Detected (NOT DETECT); Coronavirus OC43 Not Detected (NOT DETECT); Human Metapneumovirus Not Detected (NOT DETECT); Human Rhinovirus/Enterovirus Not Detected (NOT DETECT); Influenza A Not Detected (NOT DETECT); Influenza A/2009-H1 Not Detected (NOT DETECT); Influenza A/H1 Not Detected (NOT DETECT); Influenza A/H3 Not Detected (NOT DETECT); Influenza B Not Detected (NOT DETECT); Mycoplasma pneumoniae Not Detected (NOT DETECT); Parainfluenza Virus 1 Not Detected (NOT DETECT); Parainfluenza Virus 2 Not Detected (NOT DETECT); Parainfluenza Virus 3 Not Detected (NOT DETECT); Parainfluenza Virus 4 Not Detected (NOT DETECT); Respiratory Syncytial Virus Not Detected (NOT DETECT)
--- NOTE | 2019-06-25 10:26 | NUR ---
CALLED DR ALEX- PT SBP 97 HELD LASIX AND METOPROLOL. AWARE AND IS CHANGING ORDERS AND GIVING NEW PARAMETERS, ORDER FOR FLUIDS PENDING. PLACING THE ORDERS.
--- NOTE | 2019-06-25 16:00 | NUR ---
WOUND CARE COMPLETED WITH WET TO DRY DRESSING OVER THE WOUND. ORDERED SWABS OF THE WOUND BED, NOT NOTED UNTIL AFTER WOUND CARE WAS COMPLETED SO SWABS NOT DONE. WILL PASS ON TO NIGHT RN IN REPORT.
--- NOTE | 2019-06-25 18:37 | NUR ---
SHIFT SUMMARY- PT WOUND CARE WAS PERFORMED. XRAYS TAKEN OF THE FOOT THIS EVENING. WOUND SWABS NEED TO BE OBTAINED, WILL PASS ON IN REPORT TO NIGHT RN. ADDED IV PAIN MANAGEMENT FOR THE PT. PAIN SEEMS WELL MANAGED AT THIS TIME. PT RATES THE PAIN 5/10 WHICH HE SAYS IS HIS BASELINE. PHOTO DOCUMANTATION WAS OBTAINED AND WILL BE COMPLETED AND PLACED IN THE HARD CHART SHORTLY.
--- NOTE | 2019-06-26 05:22 | NUR ---
SHIFT SUMMARY NO ACUTE CHANGES THIS SHIFT. AOX4. DENIES N/V. REPORTS DYSPNEA W/ACTIVITY & DENIES ANY @REST, SPO2 >90% ON 4L O2 NC (BASELINE). DENIES CHILLS, AFEBRILE, VS STABLE. TELE IN PLACE, RUNNING A. FIB W/HR 94. REPORTS 9/10 PAIN IN BLE/FEET, MEDICATED W/FENTANYL & OXYCODONE PER ORDERS. BLE ARE BROWN, CRUSTY & ODOROUS W/WOUND DRESSINGS C/D/I, CHANGED 06/25/19 & PICTURES TAKEN PER DAY SHIFT RN. WOUND CULTURE NOT COLLECTED @THIS TIME & I WILL PASS ON TO DAY SHIFT RN THAT WE NEED COLLECTION. REDNESS UNDER PANNUS, CLEANED & NYSTATIN APPLIED. PT AMBULATED TO RESTROOM THIS EVENING W/MODERATE ASSISTANCE. CALL LIGHT IN REACH & I WILL CONT TO MONITOR.
--- NOTE | 2019-06-26 18:14 | NUR ---
SHIFT SUMMARY THE PATIENT IS PLEASANT AND COOPERATIVE WITH STAFF. CONTINUES ON IV ABX WITHOUT S/SX OF ADVERSE REACTIONS NOTED OR REPORTED. WOUND CARE PROVIDED TO BLE/FEET PER ORDERS AND CULTURE OF WOUNDS SENT TO LAB PENDING RESULTS. THERE HAVE BEEN NO ACUTE CHANGES TO REPORT ON THIS SHIFT. WILL CONTINUE TO MONITOR AND PROVIDE CARE NEEDED.
[2019-06-27 04:20] LABS: BASOPHILS ABSOLUTE AUTO 0.02 K/mm3 (0.00-0.23); BASOPHILS PERCENT AUTO 0 % (0-2); EOSINOPHILS ABSOLUTE AUTO 0.23 K/mm3 (0.00-0.68); EOSINOPHILS PERCENT AUTO 5 % (0-6); Hematocrit 40.7 % (37.0-53.0); Hemoglobin 12.1 g/dL (13.5-17.5); IMMATURE GRAN ABSOLUTE AUTO 0.02 K/mm3 (0.00-0.10); IMMATURE GRAN PERCENT AUTO 0 % (0-1); LYMPHOCYTES ABSOLUTE AUTO 0.42 K/mm3 (0.84-5.20); LYMPHOCYTES PERCENT AUTO 9 % (21-46); MONOCYTES ABSOLUTE AUTO 0.55 K/mm3 (0.16-1.47); MONOCYTES PERCENT AUTO 12 % (4-13); Mean Corpuscular HGB 25.8 pg (26.0-34.0); Mean Corpuscular HGB Conc 29.7 g/dL (31.5-36.5); Mean Corpuscular Volume 87 fL (80-100); Mean Platelet Volume 10.2 fL (9.1-12.4); NEUTROPHILS ABSOLUTE AUTO 3.54 K/mm3 (1.96-9.15); NEUTROPHILS PERCENT AUTO 74 % (41-73); Platelet Count 142 K/mm3 (150-400); RDW Standard Deviation 60.1 fL (35.1-46.3); Red Blood Cell Count 4.69 M/mm3 (4.30-5.90); White Blood Cell Count 4.78 K/mm3 (4.00-11.30)
[2019-06-27 04:34] LABS: Anion Gap 5 mmol/L (6-16); Blood Urea Nitrogen 21 mg/dL (8-24); Bun/Creatinine Ratio 17.4 (12.0-20.0); CO2, Blood 24 mmol/L (21-32); Calcium, Blood 8.6 mg/dL (8.5-10.1); Chloride, Blood 106 mmol/L (98-108); Creatinine, Blood 1.21 mg/dL (0.60-1.20); Glomerular Filtration Rate >60 (60-); Glucose, Blood 103 mg/dL (70-99); Potassium, Blood 4.5 mmol/L (3.5-5.5); Sodium, Blood 135 mmol/L (136-145)
--- NOTE | 2019-06-27 07:27 | NUR ---
SHIFT SUMMARY AOX4. VS STABLE. DENIES N/V. DYSPNIC W/ANY EXERTION, ON 4L NC, SPO2 >90%. REPORTS 9/10 PAIN IN BLE MEDICATED W/FENTANYL & OXYCODONE PER ORDERS, STATES VERY LITTLE RELIEF FROM PAIN MEDICATION. UP IN CHAIR THIS AM & REPORTS FEELING MORE COMFORTABLE. BLE WOUND DRESSINGS ARE C/D/I. TELE IN PLACE PT RUNNING AFIB W/HR 121. CALL LIGHT IN REACH.
--- NOTE | 2019-06-27 14:28 | NUR ---
LATE ENTRY-PAIN CHANGES DR. MCMILLAN CALLED ABOUT PT PAIN MANAGEMENT. CHANGES MADE PER DR. MCMILLAN ORDERS. WILL CONINTUE TO MONITOR.
--- NOTE | 2019-06-27 16:13 | NUR ---
Brief Pt visit this afternoon. Pt reports 8/10 pain on his bilateral feet due to pressures sores developing. He reports sores are not open. Educated Pt on the importance of relieving pressure by elevated his legs and pressure of his feet. Pt reports at baseline he is independent of his ADL's. Pt reports no other concerns at this time. Pt is agreeable with continued visits. Spoke with bedside nurse Sirisha and discussed case. Sirisha reports Pt received a russel bad today and Fentanyl was discontinued. Palliative Care will F/U with therapeutic visits.
--- NOTE | 2019-06-27 17:11 | NUR ---
SHIFT SUMMARY NO CHANGES IN ASSESSMENT AT THIS TIME. BLE DRESSINGS CHANGED. PT MEDICATED FOR PAIN Q4H. SEE EMAR. DR. VASQUEZ TO CONSULT WITH PT AFTER OFFICE HOURS. VSS. WILL CONTINUE TO MONITOR UNTIL TURNOVER IS COMPLETE.
--- NOTE | 2019-06-27 18:47 | NUR ---
DR. VASQUEZ WOUND CARE DR. VASQUEZ CONSULTED. DEBRIDED WOUNDS & REDRESSED THEM. WOUND CARE ORDERS PLACED TO START TOMORROW. PT TOLERATED PROCEDURE WELL. PICS TAKEN AFTER DEBRIDMENT.
[2019-06-27 22:28] LABS: Vancomycin, Trough 16.8 ug/mL (5.0-10.0)
--- NOTE | 2019-06-28 06:28 | NUR ---
SHIFT SUMMARY: PATIENT IS A&OX4, VS ARE STABLE. PATIENT IS A HEAVY ASSIST OF TWO TO SIT ON EDGE OF BED TO VOID, USING A LARGE PLASTIC CUP FOR URINAL. PATIENT IS MORBIDLY OBESE AND HAS GREAT DIFFICULTY URINATING DUE TO NO VISUAL BEYOND ABD. DRSG'S TO LEFT AND RIGHT FOOT ARE CD&I. VANCO TROUGH IS 16.8, WNL PER PHARMACY, DOSE OF VANCO WAS GIVEN PER OCT. PATIENT IS NOW UP TO THE CHAIR WITH CALL DAVID WITHIN REACH.
--- NOTE | 2019-06-28 09:56 | NUR ---
A/O. MAX ASSIST UP TO WALKER. (3) WITH GAIT AND WALKER. OBESITY. LS COARSE T/O AND PT REPORTS, "I FEEL LIKE THE MUCOUS IS BREAKING UP IN MY CHEST." 4L O2 CONTINUOUS. CURRENTLY UP IN ZOFIA CHAIR. PLEASANT,A/O AND COOP. BECOMES FRUSTRATED WITH INABILITY TO MOVE ABOUT FREELY AND TRANSFER.
--- NOTE | 2019-06-28 10:58 | NUR ---
ASSUMED CARE OF PT. ASSUMED BACK CARE OF PT. PT IN STABLE CONDITION WITH VSS. TELE READING AFLUTTER IN THE 90S PER PET FOOD DEBONER, HARDY. NO CHANGES IN ASSESSMENT COMPLETED BY YUDITH Piedra RN. LUNGS SOUNDS DIM, COURASE IN BASES. WHEEZES DECREASED COMPARED TO THE DAY BEFORE. PT SATING IN THE 90S ON 4L O2 VIA. PT UP IN CHAIR AT THIS TIME. CALL LIGHT IN REACH. WILL CONITNUE TO MONITOR.
--- NOTE | 2019-06-28 16:32 | NUR ---
SHIFT SUMMARY NO CHANGES IN ASSESSMENT AT THIS TIME. PT MEDICATED FOR PAIN 2X THIS SHIFT. PT BLE DRESSINGS CHANGED THIS SHIFT PER DR. VASQUEZ ORDERS. PT TOLERATED WELL. PT RESTING IN BED AT THIS TIME. LEGS ELEVATED. VSS. POSSIBLE DC TOMORROW. WILL CONITINUE TO MONITOR UNTIL TURNOVER IS COMPLETE.
--- NOTE | 2019-06-29 06:21 | NUR ---
SUPERINTENDENT DRILLING AND PRODUCTION SUMMARY PT A/O. PLEASANT AND FOLLOWS DIRECTIONS. SLEPT WELL THROUGHOUT THE NIGHT. ANTIBIOTICS GIVEN. PT GIVEN PRN PAIN MED ONCE THIS SHIFT. CALLS APPROPRIATELY. SOB WITH EXERSION WHEN WALKING TO THE BATHROOM WITH ASSISTANCE. NO ACUTE CHANGES.
[2019-06-29] MEDS ORDERED: JUVEN PACKET1 EACH PO (13:45)
[2019-06-29] MEDS ORDERED: SANTYL30 GM TOP (13:46)
[2019-06-29] MEDS ORDERED: HIGH POTENCY P1 EACH PO (13:46)
[2019-06-29] MEDS ORDERED: NYSTRITC TOP (13:52)
[2019-06-29] MEDS ORDERED: SENN187 PO (13:52)
[2019-06-29] MEDS ORDERED: AMOCLA500 PO (13:53)
--- NOTE | 2019-06-29 14:50 | NUR ---
DISCHARGE INSTRUCTIONS COMPLETED AND DISCUSSED WITH PT EXPRESSING UNDERSTANDING. SCRIPTS FAXED TO [facility] [address]. SON IN LAW HERE TO PICK PT UP. TO [facility] VIA W/C.
== END 2019-06-29 15:10 | disposition home or self-care (01) | DRG 853 ==
LOC: ER 14:49 → MEDS 17:50
PROVIDERS: Internal Medicine; Internal Medicine Endocrinology, Diabetes & Metabolism; Nurse Practitioner Acute Care; ADMIT Internal Medicine
PROC: 0JBR0ZZ Excision of Left Foot Subcutaneous Tissue and Fascia, Open Approach (ICD-10-PCS; principal; 2019-06-27)
PROC: 0HBMXZZ Excision of Right Foot Skin, External Approach (ICD-10-PCS; 2019-06-27)
DX: A41.81 Sepsis due to Enterococcus (principal); J96.21 Acute and chronic respiratory failure with hypoxia; J18.1 Lobar pneumonia, unspecified organism; I50.32 Chronic diastolic (congestive) heart failure; I48.20 Chronic atrial fibrillation, unspecified; Z68.44 Body mass index [BMI] 60.0-69.9, adult; J44.0 Chronic obstructive pulmonary disease with (acute) lower respiratory infection; L97.822 Non-pressure chronic ulcer of other part of left lower leg with fat layer exposed; L97.411 Non-pressure chronic ulcer of right heel and midfoot limited to breakdown of skin; E66.01 Morbid (severe) obesity due to excess calories; I11.0 Hypertensive heart disease with heart failure; Z79.01 Long term (current) use of anticoagulants; Z99.81 Dependence on supplemental oxygen; F17.210 Nicotine dependence, cigarettes, uncomplicated; R53.81 Other malaise; I89.0 Lymphedema, not elsewhere classified
CPT/HCPCS: 0099U; 36415; 71045; 73630; 80048; 80053; 80202; 82947; 83605; 83880; 84145; 84484; 85025; 85651; 87040; 87081; 93005; 93010; 94640; 94664; 94760; 96361; 96365; 97110; 97116; 97162; 97166; 97530; 97535; 98960; 99285-25; A9270; J0456; J2543; J3010; J3370; J7042; J7050; J7120

== ENCOUNTER 2019-07-03 09:47 | Observation (INO) | payer OTHER ==
[~2019-07-03] VITALS: Ht 172.7 cm; Wt 195.3 kg
[~2019-07-03 09:47] MED LIST changes: +ALBU3IS NEB; +AMOCLA500 PO; +Aspir 8181 MG PO; +BREO ELLIPTA 11 EACH INH; +CYCL10 PO; +ELIQUIS5 MG PO; +HIGH POTENCY P1 EACH PO; +JUVEN PACKET1 EACH PO; +LISI20 PO; +NYSTRITC TOP; +OXYC1TAB11 PO; +POTA10T PO; +SANTYL30 GM TOP; +SENN187 PO
[2019-07-03 10:21] LABS: BASOPHILS ABSOLUTE AUTO 0.05 K/mm3 (0.00-0.23); BASOPHILS PERCENT AUTO 1 % (0-2); EOSINOPHILS ABSOLUTE AUTO 0.23 K/mm3 (0.00-0.68); EOSINOPHILS PERCENT AUTO 4 % (0-6); Hematocrit 41.9 % (37.0-53.0); Hemoglobin 12.4 g/dL (13.5-17.5); IMMATURE GRAN ABSOLUTE AUTO 0.02 K/mm3 (0.00-0.10); IMMATURE GRAN PERCENT AUTO 0 % (0-1); LYMPHOCYTES ABSOLUTE AUTO 0.66 K/mm3 (0.84-5.20); LYMPHOCYTES PERCENT AUTO 10 % (21-46); MONOCYTES PERCENT AUTO 10 % (4-13); Mean Corpuscular HGB 25.7 pg (26.0-34.0); Mean Corpuscular HGB Conc 29.6 g/dL (31.5-36.5); Mean Corpuscular Volume 87 fL (80-100); Mean Platelet Volume 10.1 fL (9.1-12.4); NEUTROPHILS ABSOLUTE AUTO 4.76 K/mm3 (1.96-9.15); NEUTROPHILS PERCENT AUTO 75 % (41-73); Platelet Count 206 K/mm3 (150-400); RDW Coefficient Variation 19.7 % (11.7-14.2); RDW Standard Deviation 60.7 fL (35.1-46.3); Red Blood Cell Count 4.82 M/mm3 (4.30-5.90); White Blood Cell Count 6.32 K/mm3 (4.00-11.30)
[2019-07-03 10:34] LABS: Alanine Aminotransfer (ALT/SGP 17 U/L (12-78); Albumin, Blood 2.9 g/dL (3.4-5.0); Albumin/Globulin Ratio 0.6 (0.8-1.8); Alk Phos 123 U/L (50-136); Anion Gap 6 mmol/L (6-16); Aspartate Aminotrans (AST/SGOT 26 U/L (12-37); Bilirubin, Total 1.7 mg/dL (0.1-1.0); Blood Urea Nitrogen 21 mg/dL (8-24); Bun/Creatinine Ratio 23.3 (12.0-20.0); CO2, Blood 26 mmol/L (21-32); Calcium, Blood 9.2 mg/dL (8.5-10.1); Chloride, Blood 107 mmol/L (98-108); Globulin, Blood 4.9 g/dL (2.2-4.0); Glomerular Filtration Rate >60 (60-); Glucose, Blood 82 mg/dL (70-99); Potassium, Blood 4.8 mmol/L (3.5-5.5); Sodium, Blood 139 mmol/L (136-145); Total Protein, Blood 7.8 g/dL (6.4-8.2); Troponin I <0.015 ng/mL (0.000-0.040)
--- NOTE | 2019-07-03 16:00 | NUR ---
patient's legs are sore and he states he does not want to wear the scds. although I am not sure whether the scd machine would be big enough for his legs. he is on elequis at home. will ask the doctor if this is adequate.
--- NOTE | 2019-07-03 16:52 | NUR ---
Met with patient in ER. pt came in unable to walk, unable to mange medications, worsening pain in legs and feet, increasing incontinence. Pt daughter works but her and her take care of pt. They are both fatigued, distraugh and daughter is crying and fears for her father. They are both versed in his care and trying. Severe signs of caregiver stress. Pt states he has [place] and in on disability. Daughter states he was on OHP six months ago but was better so they took him off. Daughter states home health has not been out to change out since discharge to change his dressings. legs are weeping, his abdomen is excorated in the folds and bleeding. Pt is leaking uring. several areas of skin that are hard. familystates they have been trying to pull him up from chair to ambulate. H has been unable to ambulate. pt has seveal prescription bottles and was confussed on meds stated he has been taking 20 of lasix once a day. Pt willing to be placed will advised residential care facility manager to see if we can get ohp back. daughter states pt not using drugs or ETOH. She states he gets very depressed and withdraws and eats. She denies suicidal ideation. reviewed immediate and minlevel plan and upt hospice with daughter and patient. encourage hope, rehab and psyciatirc care and sleep study and cardiac work up so he can attemtp bariatic intervention. pt very interested. pt hisgh risk for sepsis.
--- NOTE | 2019-07-03 19:12 | NUR ---
SHIFT SUMMARY PATIENT IS ALERT AND ORIENTED, DOES NOT REPOSITION IN BED ON HIS OWN AND TAKES 4 PEOPLE TO ROLL AND CHANGE. PICTURES ARE IN THE CHART OF HIS LEGS, HIS WOUNDS ON HIS ARMS HAVE BEEN REDRESSED. CURRENTLY AWAITING PLAN FOR THE PATIENT.
--- NOTE | 2019-07-04 01:11 | NUR ---
07/03/191999 PTS BILATERAL LOWER EXTREMITIES FROM KNEE TO FEET (ENTIRE CIRCUMFERENCE) ARE NOTED TO HAVE VERY THICK, HARD SCALLY SKIN WITH PATIENT VOICING HE RARELY TAKES A BATHE AT HOME, SLIGHT WEEPING OF SKIN AT ANTERIOR ASPECT OF FEET NOTED. PT DENIE PAIN OR RESPIRATORY DISTRESS.
--- NOTE | 2019-07-04 05:55 | NUR ---
SHIFT SUMMARY: 59 Y/O OBESE MALE RESTED COMFORTABLY IN BED ALL SHIFT, PTS BILATERAL LOWER LEGS FROM KNEES TO FEET HAVE THICK, BROWN, HARD SCALLY SKIN NOTED, PT VOICED HE RARELY BATHES AT HOME, DENIES PAIN OR NAUSEA, BED LOW POSITION WITH CALL LIGHT AT SIDE.
--- NOTE | 2019-07-04 15:49 | NUR ---
SUMMARY PT IS A/O X4, PLEASANT/COOPERTIVE AFFECT. HE STATE EDEMA BLE, ABD & BUE HAS IMPROVED SOMEWHAT. BLE CONTINUES EDEMATOUS, 3-4+, EXTENDING UPWARD TO THIGHS, HIPS & LOWER ABD. THICK, DRY, "ELEPHANT" SKIN FEET, LEGS & LOWER ABD. DR FRIED IN THIS AM, ASSESS LEGS, STATE OK TO USE BARRIER OINT TO SOFTEN SKIN. CREW CLERK & SIX PACK PACKER ASSIST TO GET PT UP TO BSC, COMPLETE BEDBATH GIVEN WHILE PT UP, BARRIER OINT TO DRY SKIN LIBERALLY APPIED. PT STATE UNABLE TO AMBULATE INTO BR TO SHOWER @ THIS TIME. ORDER PT/OT EVAL&TX. PT STATE CHR BLE PAIN, PRN OXYCODONE GIVEN. BNP 234, IV LASIX CONTINUES, FR 1500 ML/DAY. GOOD URINE OUTPUT TODAY, 2350 ML SO FAR TODAY. VSS.
--- NOTE | 2019-07-05 05:54 | NUR ---
HAND CANDY DIPPER SUMMARY NO ACUTE CHANGES THIS SHIFT. PT AAOX4 AND PLEASANT. PT HAS HAD GOOD URINE OUTPUT THIS SHIFT AFTER RECIEVING IV LASIX DURING DAY SHIFT. PT REQUIRES ASSISTANCE WITH URINAL DUE TO SEVERE OBESITY. PT REPORTS OCCASIONAL PAIN IN BOTH OF HIS LOWER LEGS, MEDICATED PER EMAR WITH GOOD PAIN RELIEF. VSS, WILL CONTINUE TO MONITOR.
--- NOTE | 2019-07-05 11:20 | NUR ---
Pal Care visit: Case conferenced with RN prior to my visit. Introduced myself to pt and explained my purpose with PC visit to assess s/s and discuss his wishes for care, credit support specialist. Pt reports significant pain but states it is improving daily and feels it is managed as well as it can be right now. He is very excited and grateful to be going to rehab on d/c and expressed optimism/hope re: getting back home and being more independent in his care/ADLs again. No family is present during my visit. I confirmed that pt's current POLST on file, completed in 2014 is in agreement with his current wishes for care. He desires compressions, intubation and tube feedings as needed/indicated by his dr or condition at this time. Discussed visit with EFM coordinator, Bailey and pt's RN.
[2019-07-05] MEDS ORDERED: AMOCLA875 PO (13:51)
[2019-07-05] MEDS ORDERED: OXYC10TA19 PO (13:53)
[2019-07-05] MEDS ORDERED: ACET325 PO (13:54)
[2019-07-05] MEDS ORDERED: ONDA4ODT PO (13:56)
--- NOTE | 2019-07-05 15:23 | NUR ---
TRANSFER ORDERS PLACED BY DR FRIED. HE ORDER PT BE GIVEN SHOWER PRIOR TO D/C HOWEVER PT REFUSE. DR FRIED NOTIFED. PT WAS GIVEN COMPLETE BEDBATH YESTERDAY & GAVE PARTIAL BEDBATH TODAY @ TIME OF REFUSAL W EMPHASIS ON BLE & SKINFOLDS. [employer] [facility]NY CALL TO STATE TRANSFER TO [facility] ARRANGED FOR 1729 TODAY W ADELSO, EITHER W/C OR YESSICA PER THEIR DISCRETION. PT NOTIFIED. [facility] IAIN CRUZ REPORT@ THIS TIME, WILL CALL BACK. IV D/C INTACT.
--- NOTE | 2019-07-05 17:03 | NUR ---
REPORT CALLED TO MANISH SELLERS RN
--- NOTE | 2019-07-07 17:23 | NUR ---
follwo up call to pt daughter to help with plan of care and benefits.
== END 2019-07-05 18:17 ==
LOC: ER 09:47 → MEDS 09:48 → ENPENDDIS 07-05 13:33 → MEDS 07-05 18:17
PROVIDERS: Emergency Medicine; ADMIT Internal Medicine
DX: E11.628 Type 2 diabetes mellitus with other skin complications (principal); L03.116 Cellulitis of left lower limb; L03.115 Cellulitis of right lower limb; M62.81 Muscle weakness (generalized); R62.7 Adult failure to thrive; E66.01 Morbid (severe) obesity due to excess calories; L28.0 Lichen simplex chronicus; I87.2 Venous insufficiency (chronic) (peripheral); I89.0 Lymphedema, not elsewhere classified; E11.622 Type 2 diabetes mellitus with other skin ulcer; L97.519 Non-pressure chronic ulcer of other part of right foot with unspecified severity; G89.29 Other chronic pain; J44.9 Chronic obstructive pulmonary disease, unspecified; M19.90 Unspecified osteoarthritis, unspecified site; F17.200 Nicotine dependence, unspecified, uncomplicated; I48.20 Chronic atrial fibrillation, unspecified; J96.11 Chronic respiratory failure with hypoxia; I50.32 Chronic diastolic (congestive) heart failure; F44.4 Conversion disorder with motor symptom or deficit; Z68.44 Body mass index [BMI] 60.0-69.9, adult; Z79.01 Long term (current) use of anticoagulants; Z79.51 Long term (current) use of inhaled steroids; Z79.82 Long term (current) use of aspirin; Z79.52 Long term (current) use of systemic steroids; Z79.899 Other long term (current) drug therapy; Z99.81 Dependence on supplemental oxygen
CPT/HCPCS: 36415; 51798; 71045; 80053; 82947; 83880; 84484; 85025; 93005; 93010; 94640; 94760; 96374; 96376; 97110; 97163; 97166; 97530; 97535; 99285-25; G0378; J1940

== ENCOUNTER → 2019-10-12 | Outpatient (CLI) | payer OTHER ==
[~2019-10-12] MED LIST changes: +ACET325 PO; -ALBU3IS NEB; +Duoneb 2.5-0.5 M3 ML NEB; +METR500 PO; +ONDA4ODT PO; +ROXICODONE5 MG PO; +TOPROL XL50 M1 PO
== END | disposition home or self-care (01) ==
LOC: LAB 14:36 → LAB SHORT 14:36 → PLD 14:36
DX: M86.272 Subacute osteomyelitis, left ankle and foot (principal)
CPT/HCPCS: 87071; 87075; 87076; 87185; 87205; 88305; 88311

== ENCOUNTER 2020-01-19 16:47 | Inpatient (IN) | payer OTHER ==
[~2020-01-19] VITALS: Ht 175.3 cm; Wt 159.9 kg
[~2020-01-19 16:47] MED LIST changes: -LISI20 PO; -ROXICODONE5 MG PO; -TOPROL XL50 M1 PO
[2020-01-19 18:12] LABS: Alanine Aminotransfer (ALT/SGP 27 U/L (12-78); Albumin, Blood 2.4 g/dL (3.4-5.0); Albumin/Globulin Ratio 0.4 (0.8-1.8); Alk Phos 217 U/L (50-136); Anion Gap 4 mmol/L (6-16); Aspartate Aminotrans (AST/SGOT 28 U/L (12-37); Bilirubin, Total 0.6 mg/dL (0.1-1.0); Blood Urea Nitrogen 31 mg/dL (8-24); CO2, Blood 28 mmol/L (21-32); Calcium, Blood 8.8 mg/dL (8.5-10.1); Chloride, Blood 108 mmol/L (98-108); Creatinine, Blood 1.24 mg/dL (0.60-1.20); Globulin, Blood 5.4 g/dL (2.2-4.0); Glomerular Filtration Rate >60 (60-); Glucose, Blood 120 mg/dL (70-99); Magnesium, Blood 2.1 mg/dL (1.6-2.4); Potassium, Blood 4.2 mmol/L (3.5-5.5); Sodium, Blood 140 mmol/L (136-145); Total Protein, Blood 7.8 g/dL (6.4-8.2)
[2020-01-19] MEDS ORDERED: GABA300 PO (18:42)
[2020-01-19] MEDS ORDERED: LISI20 PO (18:42)
[2020-01-19] MEDS ORDERED: TOPROL XL50 M1 PO (18:43)
[2020-01-19] MEDS ORDERED: PERCOCET 10-321 EACH PO (18:44)
[2020-01-19] MEDS ORDERED: ELIQUIS5 MG PO (18:45)
[2020-01-19] MEDS ORDERED: BREO ELLIPTA 11 EACH INH (18:48)
[2020-01-19] MEDS ORDERED: POTA10T PO (18:58)
[2020-01-19] MEDS ORDERED: FURO40 PO (18:58)
[2020-01-19] MEDS ORDERED: Aspir 8181 MG PO (19:00)
[2020-01-19 19:41] LABS: BASOPHILS ABSOLUTE AUTO 0.04 K/mm3 (0.00-0.23); BASOPHILS PERCENT AUTO 1 % (0-2); EOSINOPHILS ABSOLUTE AUTO 0.97 K/mm3 (0.00-0.68); EOSINOPHILS PERCENT AUTO 15 % (0-6); Hematocrit 48.4 % (37.0-53.0); Hemoglobin 14.4 g/dL (13.5-17.5); IMMATURE GRAN ABSOLUTE AUTO 0.03 K/mm3 (0.00-0.10); IMMATURE GRAN PERCENT AUTO 1 % (0-1); LYMPHOCYTES ABSOLUTE AUTO 0.72 K/mm3 (0.84-5.20); LYMPHOCYTES PERCENT AUTO 11 % (21-46); MONOCYTES ABSOLUTE AUTO 0.82 K/mm3 (0.16-1.47); MONOCYTES PERCENT AUTO 13 % (4-13); Mean Corpuscular HGB 27.1 pg (26.0-34.0); Mean Corpuscular HGB Conc 29.8 g/dL (31.5-36.5); Mean Corpuscular Volume 91 fL (80-100); Mean Platelet Volume 9.7 fL (9.1-12.4); NEUTROPHILS ABSOLUTE AUTO 3.96 K/mm3 (1.96-9.15); NEUTROPHILS PERCENT AUTO 61 % (41-73); Platelet Count 329 K/mm3 (150-400); RDW Coefficient Variation 15.2 % (11.7-14.2); RDW Standard Deviation 50.9 fL (35.1-46.3); Red Blood Cell Count 5.32 M/mm3 (4.30-5.90); White Blood Cell Count 6.54 K/mm3 (4.00-11.30)
[2020-01-19 22:12] LABS: U Amphetamine Screen Not Detected; U Barbituate Screen Not Detected; U Benzodiazapine Screen Not Detected; U Buprenorphine Screen Not Detected; U Cannabinoids Screen Not Detected; U Cocaine Screen Not Detected; U Methadone Screen Not Detected; U Methamphetamine Screen Not Detected; U Opiates Screen Not Detected; U Oxycodone Screen Not Detected; U Phencyclidine Screen Not Detected; U Propoxyphene Screen Not Detected
--- NOTE | 2020-01-20 00:30 | NUR ---
ADMIT ASSESSMENT PT ARRIVED TO PCU VIA GURNEY. HE STOOD IN ER TO GET HIS LEGS CLEANED UP AND NOW STATES HE DOESN'T WANT TO STAND AGAIN. PT WAS SLID OVER TO BED WITH NO ISSUES. INITAL SET OF VITALS ARE STABLE. PT IS COMPLAINING OF 10/10 PAIN TO HIS LEGS. EXTENSIVE WOUNDS TO BILATERAL LEGS. SEE WOUND PHOTOS. PT ALSO APPEARS TO HAVE A GENERALIZED RASH TO HIS BODY. HE ALSO STATES THIS IS CAUSING HIM A FAIR AMOUNT OF PAIN. PT HAS RASH ON HIS ARMS WELL. HE STATES THE RASH HAS BEEN GETTING PROGRESSIVELY WORSE OVER THE LAST MONTH OR SO. STATES HE IS UNABLE TO CLEAN HIMSELF WELL. OVERALL PT HAS A VERY STRONG ODIFFEROUS SMELL. PICTURES WERE TAKEN OF MOST OF HIS BODY. PT WAS ABLE TO GIVE AN ACCURATE HEALTH HISTORY STATING HE WAS JUST HERE IN THE HOSPITAL FOR A FOOT SURGERY TO LEFT FOOT. PT WAS GIVEN WATER REQUESTED. WILL ADMINISTER PAIN MEDCIATIONS WHEN ALLOWED PER EMAR. LR RUNNING ORDERED INTO RIGHT FA IV. SITE IS PATENT. IV TO LT FA FLUSHED AND PATENT. NO S/S OF INFECTION AND DRESSING IS CDI. CALL LIGHT IN REACH OF PT AND BED IN LOW POSITION.
--- NOTE | 2020-01-20 01:20 | NUR ---
SHIFT UP DATE PT WAS GIVEN IV FENTANYL PAIN MEDS WITH SOME RELIEF OF PAIN. NYSTATIN POWER PUT IN ABD FOLDS ORDERED. PICTURES WERE TAKEN OF FRONT SIDE OF PT. HE WAS ABLE TO HELP HOLD HIS LEGS UP FOR THIS PT TO PLACE FRESH EXUDRY'S UNDER LEGS. PT DOES HAVE RIGHT LEG ELEVATED ON PILLOWS. OVERALL HE IS COOPERTIVE WITH CARE BUT WOULD LIKE TO BE LEFT ALONE TO GET SOME REST. PT WAS ABLE TO USE URINAL WITH ASSISTANCE AND HAD GOOD URINE OUTPUT. PT'S HOME MEDICATIONS WERE SENT UP TO PHARMACY AND SLIP RECIEVED FROM PHARMACY. WILL CON'T TO MONITOR PT.
[2020-01-20 03:50] LABS: BASOPHILS ABSOLUTE AUTO 0.06 K/mm3 (0.00-0.23); BASOPHILS PERCENT AUTO 1 % (0-2); EOSINOPHILS ABSOLUTE AUTO 0.88 K/mm3 (0.00-0.68); EOSINOPHILS PERCENT AUTO 13 % (0-6); Hematocrit 42.3 % (37.0-53.0); Hemoglobin 12.9 g/dL (13.5-17.5); IMMATURE GRAN ABSOLUTE AUTO 0.02 K/mm3 (0.00-0.10); IMMATURE GRAN PERCENT AUTO 0 % (0-1); LYMPHOCYTES ABSOLUTE AUTO 0.44 K/mm3 (0.84-5.20); LYMPHOCYTES PERCENT AUTO 7 % (21-46); MONOCYTES ABSOLUTE AUTO 0.85 K/mm3 (0.16-1.47); MONOCYTES PERCENT AUTO 13 % (4-13); Mean Corpuscular HGB 27.3 pg (26.0-34.0); Mean Corpuscular HGB Conc 30.5 g/dL (31.5-36.5); Mean Corpuscular Volume 90 fL (80-100); Mean Platelet Volume 9.1 fL (9.1-12.4); NEUTROPHILS ABSOLUTE AUTO 4.46 K/mm3 (1.96-9.15); NEUTROPHILS PERCENT AUTO 66 % (41-73); Platelet Count 279 K/mm3 (150-400); RDW Standard Deviation 49.8 fL (35.1-46.3); Red Blood Cell Count 4.72 M/mm3 (4.30-5.90); White Blood Cell Count 6.71 K/mm3 (4.00-11.30)
[2020-01-20 04:14] LABS: Alanine Aminotransfer (ALT/SGP 23 U/L (12-78); Albumin/Globulin Ratio 0.4 (0.8-1.8); Alk Phos 183 U/L (50-136); Anion Gap 6 mmol/L (6-16); Aspartate Aminotrans (AST/SGOT 27 U/L (12-37); Bilirubin, Total 0.8 mg/dL (0.1-1.0); Blood Urea Nitrogen 29 mg/dL (8-24); Bun/Creatinine Ratio 29.8 (12.0-20.0); CO2, Blood 23 mmol/L (21-32); Chloride, Blood 109 mmol/L (98-108); Creatinine, Blood 0.97 mg/dL (0.60-1.20); Globulin, Blood 4.6 g/dL (2.2-4.0); Glomerular Filtration Rate >60 (60-); Glucose, Blood 121 mg/dL (70-99); Sodium, Blood 138 mmol/L (136-145); Total Protein, Blood 6.6 g/dL (6.4-8.2)
--- NOTE | 2020-01-20 04:37 | NUR ---
SHIFT UPDATE PT CON'T TO BE STABLE T/O SHIFT. NO CHANGES FROM BASELINE. VITALS ARE STABLE THIS AM. HE CON'T TO HAVE PAIN. FENTANYL IV WAS GIVEN WELL ULTRAM PO. PT SEEMS TO HAVE SOME RELIEF FROM PAIN WITH MEDS. REPOSITIONED PT'S LEGS WELL AND THIS HELPS. PT CON'T TO HAVE DRAINAGE FROM HIS LEGS AND BACK. LR CON'T TO RUN ORDERED. MORNING LABS WERE DRAWN THIS AM SEE LAB RESULTS. CALL LIGHT IN REACH UPON THIS RN LEAVING ROOM. REPORT WAS GIVEN TO ICHTHYOLOGY TEACHER AT THIS TIME.
--- NOTE | 2020-01-20 05:01 | NUR ---
Report recieved from RICKY Cabrera and care assumed at this time.
--- NOTE | 2020-01-20 08:00 | NUR ---
PT LYING IN BED ON R SIDE. THE PATIENT IS A&Ox4. PUPILS EQUAL, ROUND, AND REACTIVE TO LIGHT. EXPIRATORY WHEEZES AUSCLTATED IN RUL WITH DIMINISHED LUNG SOUNDS IN THE BASES. ALL OTHER LUNG LUNA CLEAR. PT DENIES SOB OR DIFFICULTY BREATHING. HEART IS TACHYCARDIC AT A RATE OF 125. HX OF AFIB. CURRENT RHYTHMN IS SINUS TACHYCARDIA. BOWEL SOUNDS AUSCLTATED IN ALL FOUR QUADRANTS. ABD SOFT AND NON-TENDER. THE PATIENT REPORTS SEVERE PAIN TO LEGS, BUTTOCKS, AND LOWER BACK. UPON FURTHER INSPECTION THE PATIENT HAS MANY WOUNDS EXTENDING FROM LOWER BACK TO THE BOTTOM OF HIS FEET. HIS SKIN APPEARS RED, IRRITATED, FLAKEY, EDEMATOUS, AND HIS LEGS ARE WEEPING. THE SKIN ON HIS UPPER POSTERIOR THIGHS IS BLACK. THE PATIENT ALSO HAS WHAT APPEARS TO BE A RASH ON HIS ARMS AND ABD. PT IS BEDBOUND BUT ABLE TO MAKE MINOR ADJUSTMENTS ON OWN. TWO PERSON ASSIST WHEN REPOSITIONING. PT DENIES DIFFICULTY URINATING. REQUIRES ASSISTANCE USING THE URINAL. PT STS LAST BM WAS 2 DAYS AGO. PT HAS TWO PATENT PERIPHERAL LINES (RFA & LFA). BED IN LOWEST POSITION, BED RAILS ARE UP, AND THE CALL LIGHT IS WITHIN REACH OF THE PATIENT.
--- NOTE | 2020-01-20 10:30 | NUR ---
PT READJUESTED IN BED WITH THE ASSISTANCE OF THE PCT. PT NOW SITTING UP IN BED FINISHING EATING BREAKFAST. BED IN LOWEST POSITION, RAILS UP, AND CALL LIGHT WITHIN REACH.
--- NOTE | 2020-01-20 11:30 | NUR ---
DR BUSBY IN TO SEE PT FOR A PODIATRY CONSULT. PT READJUSTED IN BED Q2H WITH ASSISTANCE FROM RN AND PCT. PT IS CURRENTLY SITTING UP AND EATING LUNCH. BED IN LOWEST POSITION, RAILS UP, AND CALL LIGHT WITHIN REACH OF THE PT.
[2020-01-20 17:43] LABS: Vancomycin, Trough 16.5 ug/mL (5.0-10.0)
--- NOTE | 2020-01-20 19:18 | NUR ---
DR. VALLE WAS IN TO CONSULT, HE SAID NO DEBREDMENT NOW. PT DOING OK, BUT IS PAINFUL, MEDICATING ORDERED TO KEEP HIM COMFORTABLE. NO FURTHER CHANGES. CALL LIGHT IN REACH.
--- NOTE | 2020-01-20 20:15 | NUR ---
Assumed Care Report recieved from Marah RN and Stoney Student Nurse and care assumed by this RN and Mahesh Student Nurse at 1900. Pt presents lying in bed, drowsy but arrousable, VSS SBP 99 at time of arrival. Pt on 2L NC at time of arrival, will attempt to titrate off this shift. Pt mentation intact though he is sleepy. Fully oriented to person, place, time, event and follows all directions appropriately. Plan of care for this shift discussed with pt and pt to be turned q2 hrs to promote improved skin integrity. Pt verbalizes understanding and compliance with plan for this shift. Pt endorses pain 8/10 at time of arrival but pain at this time is "tolerable" for him. Will continue to monitor mentation and pain status throughout shift. Abx infusing at time of shift change, PIV sites both wnl. No acute concerns to note at start of shift. Pt able to verbalize needs and uses call light appropriately. Pills taken whole with water without difficulty. Breathing is even and unlabored at rest. See shift assessment for detailed systems assessment.
[2020-01-21 03:31] LABS: BASOPHILS ABSOLUTE AUTO 0.04 K/mm3 (0.00-0.23); BASOPHILS PERCENT AUTO 1 % (0-2); EOSINOPHILS ABSOLUTE AUTO 0.82 K/mm3 (0.00-0.68); EOSINOPHILS PERCENT AUTO 14 % (0-6); Hematocrit 37.9 % (37.0-53.0); Hemoglobin 11.3 g/dL (13.5-17.5); IMMATURE GRAN ABSOLUTE AUTO 0.02 K/mm3 (0.00-0.10); IMMATURE GRAN PERCENT AUTO 0 % (0-1); LYMPHOCYTES ABSOLUTE AUTO 0.52 K/mm3 (0.84-5.20); LYMPHOCYTES PERCENT AUTO 9 % (21-46); MONOCYTES ABSOLUTE AUTO 0.81 K/mm3 (0.16-1.47); MONOCYTES PERCENT AUTO 14 % (4-13); Mean Corpuscular HGB 26.8 pg (26.0-34.0); Mean Corpuscular HGB Conc 29.8 g/dL (31.5-36.5); Mean Corpuscular Volume 90 fL (80-100); Mean Platelet Volume 8.9 fL (9.1-12.4); NEUTROPHILS ABSOLUTE AUTO 3.71 K/mm3 (1.96-9.15); NEUTROPHILS PERCENT AUTO 63 % (41-73); Platelet Count 240 K/mm3 (150-400); RDW Coefficient Variation 15.1 % (11.7-14.2); RDW Standard Deviation 49.7 fL (35.1-46.3); Red Blood Cell Count 4.21 M/mm3 (4.30-5.90); White Blood Cell Count 5.92 K/mm3 (4.00-11.30)
[2020-01-21 03:49] LABS: Alanine Aminotransfer (ALT/SGP 20 U/L (12-78); Albumin, Blood 1.8 g/dL (3.4-5.0); Albumin/Globulin Ratio 0.4 (0.8-1.8); Alk Phos 151 U/L (50-136); Anion Gap 5 mmol/L (6-16); Aspartate Aminotrans (AST/SGOT 22 U/L (12-37); Bilirubin, Total 0.6 mg/dL (0.1-1.0); Blood Urea Nitrogen 23 mg/dL (8-24); Bun/Creatinine Ratio 23.3 (12.0-20.0); CO2, Blood 25 mmol/L (21-32); Chloride, Blood 106 mmol/L (98-108); Creatinine, Blood 0.99 mg/dL (0.60-1.20); Globulin, Blood 4.4 g/dL (2.2-4.0); Glomerular Filtration Rate >60 (60-); Glucose, Blood 96 mg/dL (70-99); Potassium, Blood 4.4 mmol/L (3.5-5.5); Sodium, Blood 136 mmol/L (136-145); Total Protein, Blood 6.2 g/dL (6.4-8.2)
--- NOTE | 2020-01-21 06:21 | NUR ---
Shift Summary THE PT REMAINS TACHYCARDIC IN THE 120'S. HIS O2 SATURATION IS 95% ON ROOM AIR. HE HAS BEEN ALERT, ORIENTED, AND COOPERATIVE THROUGHOUT THE SHIFT. 1 MG DILAUDID Q6 SEEMS TO BE OFFERING HIM PAIN RELIEF. HE IS COMPLIANT WITH Q2 REPOSITIONING AND RECPETIVE TO CARE. THE PT HAS DENIED NAUSEA, CHEST PAIN, OR SHORTNESS OF BREATH. HIS ONLY COMPLAINT HAS BEEN OF PAIN SECONDARY TO HIS GLOBAL WOUNDS, STATING "I FEEL LIKE A SKINNED CAT." HE REPORTED SOME RELIEF WITH UNNA BOOT APPLICATION. DERMATOLOGY CONSULT TO BE CALLED IN. NO SIGNIFCANT CHANGES THIS SHIFT. NO ACUTE CONCERNS.
--- NOTE | 2020-01-21 08:15 | NUR ---
PT LYING IN BED ON LEFT SIDE WATCHING TV. PT IS A&0x4. PUPILS ARE EQUAL, ROUND, AND REACTIVE TO LIGHT. LUNG SOUNDS ARE DIMINISHED IN THE BASES, CLEAR IN ALL OTHER LUNA. PT DENIES SOB OR DIFFICULTY BREATHING. SATS TEND TO DROP TO MID 80'S WHEN SLEEPING. PT STS HE USES O2 AT HOME WHEN SLEEPING. PT GIVEN O2 @ 2LPM VIA NC WHEN SLEEPING. HEART CONTINUES TO BE TACHYCARDIC IN THE 120'S. PT ON TELE WITH A RHYTHMN OF SINUS TACHYCARDIA. DENIES CP OR PRESSURE. UNABLE TO PALPATE PULSES IN LOWER EXTREMETIES DUE TO UNNA BOOT PLACEMENT. TOES ARE PINK AND WARM. GOOD CAP REFIL NOTED. BOWEL SOUNDS AUSCULTATED IN ALL FOUR QUADRANTS. ABD SOFT AND NON-TENDER. PT STS LAST BM WAS YESTERDAY. DENIES DIFFICULTY URINATING. REQURIES ASSISTANCE USING URINAL. WOUNDS NOTED FROM LOWER BACK TO THE BOTTOM OF FEET. WOUNDS ARE RED, FLAKEY, PEELING, AND WEEPING. WOUNDS ON UPPER POSTERIOR THIGHS ARE BLACK. RASH IS ALSO NOTED ON ARMS AND ABD. PT REPORTS SEVERE PAIN RELATED TO HIS WOUNDS. PT HAS TWO PATENT PERIPHERAL LINES (RFA & LFA). PT IS BEDBOUND. ABLE TO MAKE MINOR ADJUSTMENT ON OWN. REQUIRES TWO PEOPLE TO REPOSITION PT. BED IN LOWEST POSITION, RAILS ARE UP AND THE CALL LIGHT IS WITHIN REACH.
--- NOTE | 2020-01-21 12:00 | NUR ---
PT BECAME FRUSTRATED ABOUT BEING IN BED SO LONG, WANTED OUT OF BED, BUT REFUSED PT THIS AM, CALLED THE THERAPIST, SHE CAME RIGHT AWAY AND GOT HIM UP, SHE REPORTED HE DID VERY WELL, HE IS IN A RECLINDER NOW, BED LINEN BEING CHANGED, HE WAS MEDICATED WITH FENTANYL PRIOR TO BEING MOVED, HE REPORTS IT DIDN'T HELP. WILL GIVEN HIM DILAUDID, DR. BOOKER HERE TO SEE HIM, WILL ORDER DIETARY CONSULT FOR SOME ALEXX. CALL LIGHT IN REACH.
--- NOTE | 2020-01-21 14:32 | NUR ---
PT STATUS CHANGED TO MEDICAL FLOOR. REPORT WILL BE GIVEN TO BARBI GEE RN. PT TO BE TAKEN UP VIA WC WITH ALL THEIR BELONGINGS. PT MEDICATED FOR PAIN WITH ORAL MEDICATION, NORCO.
--- NOTE | 2020-01-21 14:52 | NUR ---
REPORT GIVEN TO BARBI GEE RN. PT ON THEIR WAY TO MEDICAL FLOOR RM #[id number] VIA .
--- NOTE | 2020-01-21 16:50 | NUR ---
SHIFT SUMMARY PT TRANSFERRED FROM PCU TO MED FLOOR THIS AFTERNOON. PT C/O PAIN IN BLE DUE TO SKIN CONDITION. MEDICATED PER EMAR. PT IN BED WITH CALL LIGHT IN REACH. NO ACUTE CHANGES THIS SHIFT.
--- NOTE | 2020-01-22 04:11 | NUR ---
SHIFT SUMMARY PT HAS HAD NO ACUTE CHANGES THIS SHIFT, C/O 8-05/10 WOUND PAIN, MEDICATED PER OCT, PT STATES HE HAS NOT SLEPT WELL D/T PAIN- SLEPT ON & OFF T/O NIGHT, REPOS SIDE TO SIDE Q2, ABSORB PADS UNDER PT FOR WOUND DRAINAGE, PT BEDRESTING AT THIS TIME WATCHING TV, CALL LIGHT IN REACH, WILL CONT TO MONITOR UNTIL REPORT GIVEN TO DAY RN.
--- NOTE | 2020-01-22 18:09 | NUR ---
SHIFT SUMMARY PT WORKED WITH OCCUPATIONAL THERAPY THIS SHIFT. THIS RN AND ACUTE CARE PHYSICAL THERAPIST GAVE PT SHOWER AND PT WAS ABLE TO TOLERATE IT BY STANDING UP. MEDICATED FOR PAIN SEVERAL TIMES. [employer] [place] [employer]OT[employer] PLACED TO BLE THIS AFTERNOON AFTER SHOWER. PT SAT UP ON BENCH FOR LUNCH BUT DECLINED TO SIT UP IN CHAIR FOR DINNER. THIS RN EXPLAINED IMPORTANCE OF GETTING OUT OF BED FOR HEALING AND STRENGTH. NO ACUTE CHANGES THIS SHIFT. CALL LIGHT IN REACH. WILL CONTINUE TO MONITOR AND REPORT TO ONCOMING RN.
--- NOTE | 2020-01-23 03:58 | NUR ---
SUMMARY: A/OX4, CALLS APPROPRIATELY AND SPECIFIES NEEDS. HE'S 1P ASSIST OOB OR 2P ASSIST W/REPOSITIONING IN BED. IV ABX RECIEVED THEN SL. JIA BOOTS REMAIN C/D/I TO BLE'S, CHANGED ON DAY SHIFT PER EMAR. WOUNDS FROM CELLULITIS AND SKIN CONDITION PERSIST FROM BUTTOCKS DOWN TO FEET. DERM CX PENDING, PODIATRY RX'D JIA BOOTS AND SURGICAL INTERVENTION NOT NEEDED PER CX. SEE PHOTOS FOR DETAILS. PERCOCET AND FENTANYL PRN RECIEVED T/O NOCTE FOR TOLERABLE "INNER THIGH" PAIN CONTROL. SNACKS AND DRINKS PROVIDED PER REQUEST. PT ASSISTED W/URINAL PRN. TURN SCHEDULE MAINTAINED AND LEGS ELEVATED IN BED. MOBILITY ENCOURAGED. PT SLEPT INTERMITTENTLY. NO ACUTE CHANGES, VSS/AFEBRILE. WCTM/REPORT TO DAY RN.
[2020-01-23 05:11] LABS: BASOPHILS ABSOLUTE AUTO 0.05 K/mm3 (0.00-0.23); BASOPHILS PERCENT AUTO 1 % (0-2); EOSINOPHILS ABSOLUTE AUTO 0.83 K/mm3 (0.00-0.68); EOSINOPHILS PERCENT AUTO 14 % (0-6); Hematocrit 38.7 % (37.0-53.0); Hemoglobin 11.7 g/dL (13.5-17.5); IMMATURE GRAN ABSOLUTE AUTO 0.04 K/mm3 (0.00-0.10); IMMATURE GRAN PERCENT AUTO 1 % (0-1); LYMPHOCYTES ABSOLUTE AUTO 0.75 K/mm3 (0.84-5.20); LYMPHOCYTES PERCENT AUTO 12 % (21-46); MONOCYTES ABSOLUTE AUTO 0.69 K/mm3 (0.16-1.47); MONOCYTES PERCENT AUTO 11 % (4-13); Mean Corpuscular HGB 27.1 pg (26.0-34.0); Mean Corpuscular HGB Conc 30.2 g/dL (31.5-36.5); Mean Corpuscular Volume 90 fL (80-100); Mean Platelet Volume 9.4 fL (9.1-12.4); NEUTROPHILS ABSOLUTE AUTO 3.71 K/mm3 (1.96-9.15); NEUTROPHILS PERCENT AUTO 61 % (41-73); Platelet Count 263 K/mm3 (150-400); RDW Standard Deviation 49.6 fL (35.1-46.3); Red Blood Cell Count 4.32 M/mm3 (4.30-5.90); White Blood Cell Count 6.07 K/mm3 (4.00-11.30)
[2020-01-23 05:42] LABS: Alanine Aminotransfer (ALT/SGP 20 U/L (12-78); Albumin, Blood 1.9 g/dL (3.4-5.0); Albumin/Globulin Ratio 0.4 (0.8-1.8); Alk Phos 186 U/L (50-136); Anion Gap 5 mmol/L (6-16); Aspartate Aminotrans (AST/SGOT 25 U/L (12-37); Bilirubin, Total 0.7 mg/dL (0.1-1.0); Blood Urea Nitrogen 27 mg/dL (8-24); Bun/Creatinine Ratio 25.5 (12.0-20.0); CO2, Blood 26 mmol/L (21-32); Calcium, Blood 8.3 mg/dL (8.5-10.1); Chloride, Blood 104 mmol/L (98-108); Creatinine, Blood 1.06 mg/dL (0.60-1.20); Globulin, Blood 4.8 g/dL (2.2-4.0); Glomerular Filtration Rate >60 (60-); Glucose, Blood 82 mg/dL (70-99); Potassium, Blood 5.1 mmol/L (3.5-5.5); Sodium, Blood 135 mmol/L (136-145); Total Protein, Blood 6.7 g/dL (6.4-8.2)
--- NOTE | 2020-01-23 18:33 | NUR ---
SHIFT SUMMARY. A&OX4, SBA WITH FWW. PT WALKED IN GONZALES WITH THERAPY AND DEVICE TEST ENGINEER THIS SHIFT. PT REPORTS STRENGTH IMPROVED COMPARED TO YESTERDAY. UP TO CHAIR FOR MEALS. PT REPORTS PAIN TO BLE SECONDARY TO WOUNDS, PAIN MANAGED WELL WITH CURRENT ORDERS. DRESSINGS TO BLE C/D/I, DUE TO BE CHANGED TOMORROW. PT DENIES SOB, N/V. NO NEW CHANGES OR CONCERNS.
--- NOTE | 2020-01-24 04:11 | NUR ---
SUMMARY: A/OX4, CALLS APPROPRIATELY AND SBA W/FWW. HE WASN'T OOB THIS SHIFT BUT WAS ASSISTED W/REPOSITIONING IN BED AND URINAL USE, STRENGTH CONT'S TO IMPROVE AND MOBILITY ENCOURAGED. BLE PAIN SECONDARY TO WOUNDS PERSISTS, PERCOCET AND FENTANYL RECIEVED T/O NOCTE FOR TOLERABLE RELIEF. JIA BOOTS TO BLE'S REMAIN C/D/I AND ARE RX'D TO BE CHANGED TODAY. SEE PHOTOS FOR DETAILS. HE DENIES ALL OTHER COMPLAINTS. PT ON ORAL ABX NOW SO MAY D/C SOON. VSS AND AFEBRILE, NO ACUTE CHANGES. WCTM AND REPORT TO DAY RN.
--- NOTE | 2020-01-24 17:10 | NUR ---
SHIFT SUMMARY- PT IS A/O PLESANT AND COOPERATIVE. HE IS RECIEVING PAIN MEDICATION FOR HIS LEGS. PT SHOWERED TODAY AND BANDAGES WERE CHANGED. HE IS RECIEVING ORAL ANTIBIOTICS. HE IS AMBULATING WITH ASSISTANCE TO THE RESTROOM. WORKED WITH PHYSICAL THERAPY TODAY. HE IS EATING AND DRINKING WELL.
--- NOTE | 2020-01-25 04:16 | NUR ---
SHIFT SUMMARY PT HAS HAD NO ACUTE CHANGES THIS SHIFT, MEDCIATED PER MAR FOR PAIN IN BLE, CHANGED ABSORB PADS NEEDED FOR SIGNIFICANT WEEPING ON LLE, REPOS Q2 R TO L SIDE, PT SLEPT OFF & ON T/O SHIFT, BEDRESTING AT THIS TIME WATCHING TV, CALL LIGHT IN REACH, WILL CONT TO MONITOR UNTIL REPORT GIVEN TO DAY RN.
[2020-01-25] MEDS ORDERED: DILTIAZEM 24HR120 M2 PO (08:18)
[2020-01-25] MEDS ORDERED: AMOCLA875 PO (08:20)
[2020-01-25] MEDS ORDERED: COMBIVENT RESPIM4 GM INH (08:20)
[2020-01-25] MEDS ORDERED: SERT50 PO (08:21)
[2020-01-25] MEDS ORDERED: Triamcinolone A15 G4 TOP (08:23)
[2020-01-25] MEDS ORDERED: UNNA-FLEX1 EACH TOP (08:23)
--- NOTE | 2020-01-25 11:25 | NUR ---
DISCHARGE NOTE. PATIENT DISCHARGING TODAY. ANNALISA FROM [place] IN VISITING WITH PATIENT. NEW SCRIPTS FAXED TO [facility]. IV'S REMOVED, INTACT. PATIENT LOOKING OVER DISCHARGE PACKET. NEPHEW IN TO WASHER REPAIRMAN PATIENT AT 1130.
== END 2020-01-25 12:42 | disposition home health service (06) | DRG 872 ==
LOC: ER 16:47 → PCU 23:14 → MEDS 01-21 15:06 → ENPENDDIS 01-25 08:00 → MEDS 01-25 12:42
PROVIDERS: Emergency Medicine; Internal Medicine; Nurse Practitioner Acute Care; ADMIT Internal Medicine
DX: A41.9 Sepsis, unspecified organism (principal); L03.115 Cellulitis of right lower limb; L03.116 Cellulitis of left lower limb; I48.20 Chronic atrial fibrillation, unspecified; E46 Unspecified protein-calorie malnutrition; I50.32 Chronic diastolic (congestive) heart failure; J96.11 Chronic respiratory failure with hypoxia; Z68.42 Body mass index [BMI] 45.0-49.9, adult; I87.2 Venous insufficiency (chronic) (peripheral); I27.20 Pulmonary hypertension, unspecified; E66.01 Morbid (severe) obesity due to excess calories; F32.9 Major depressive disorder, single episode, unspecified; J44.9 Chronic obstructive pulmonary disease, unspecified; G47.33 Obstructive sleep apnea (adult) (pediatric); I11.0 Hypertensive heart disease with heart failure; Z89.422 Acquired absence of other left toe(s); Z87.891 Personal history of nicotine dependence; Z79.82 Long term (current) use of aspirin; Z79.01 Long term (current) use of anticoagulants
CPT/HCPCS: 36415; 71045; 73700; 80053; 80202; 83605; 83735; 83880; 85025; 87040; 87070; 87205; 90471; 90714; 93005; 93010; 94640; 94760; 96361; 96365; 96366; 96375; 97116; 97162; 97166; 97530; 97535; 99285-25; A9270; A9270-GY; J0696; J1170; J1650; J2543; J3010; J3370; J7030; J7050; J7120

== ENCOUNTER 2020-01-30 17:12 | Emergency (ER) | payer OTHER ==
[~2020-01-30] VITALS: Ht 175.3 cm; Wt 151.9 kg
[~2020-01-30 17:12] MED LIST changes: +COMBIVENT RESPIM4 GM INH; +DILTIAZEM 24HR120 M2 PO; +LISI20 PO; +PERCOCET 10-321 EACH PO; +SERT50 PO; +TOPROL XL50 M1 PO; +Triamcinolone A15 G4 TOP; +UNNA-FLEX1 EACH TOP
[2020-01-30 18:47] LABS: BASOPHILS ABSOLUTE AUTO 0.04 K/mm3 (0.00-0.23); BASOPHILS PERCENT AUTO 1 % (0-2); EOSINOPHILS ABSOLUTE AUTO 0.47 K/mm3 (0.00-0.68); EOSINOPHILS PERCENT AUTO 6 % (0-6); Hematocrit 38.1 % (37.0-53.0); Hemoglobin 11.4 g/dL (13.5-17.5); IMMATURE GRAN ABSOLUTE AUTO 0.03 K/mm3 (0.00-0.10); IMMATURE GRAN PERCENT AUTO 0 % (0-1); LYMPHOCYTES ABSOLUTE AUTO 0.47 K/mm3 (0.84-5.20); LYMPHOCYTES PERCENT AUTO 6 % (21-46); MONOCYTES ABSOLUTE AUTO 0.74 K/mm3 (0.16-1.47); MONOCYTES PERCENT AUTO 10 % (4-13); Mean Corpuscular HGB 27.7 pg (26.0-34.0); Mean Corpuscular HGB Conc 29.9 g/dL (31.5-36.5); Mean Platelet Volume 9.3 fL (9.1-12.4); NEUTROPHILS ABSOLUTE AUTO 5.69 K/mm3 (1.96-9.15); NEUTROPHILS PERCENT AUTO 77 % (41-73); Platelet Count 247 K/mm3 (150-400); RDW Standard Deviation 54.2 fL (35.1-46.3); Red Blood Cell Count 4.11 M/mm3 (4.30-5.90); White Blood Cell Count 7.44 K/mm3 (4.00-11.30)
[2020-01-30 18:49] LABS: Mean Corpuscular Volume 93 fL (80-100)
[2020-01-30 19:10] LABS: Alanine Aminotransfer (ALT/SGP 14 U/L (12-78); Albumin/Globulin Ratio 0.4 (0.8-1.8); Alk Phos 142 U/L (50-136); Anion Gap 3 mmol/L (6-16); Aspartate Aminotrans (AST/SGOT 13 U/L (12-37); Bilirubin, Total 0.4 mg/dL (0.1-1.0); Blood Urea Nitrogen 30 mg/dL (8-24); Bun/Creatinine Ratio 27.8 (12.0-20.0); CO2, Blood 25 mmol/L (21-32); Calcium, Blood 7.8 mg/dL (8.5-10.1); Chloride, Blood 112 mmol/L (98-108); Creatinine, Blood 1.08 mg/dL (0.60-1.20); Globulin, Blood 4.6 g/dL (2.2-4.0); Glomerular Filtration Rate >60 (60-); Glucose, Blood 107 mg/dL (70-99); Potassium, Blood 4.3 mmol/L (3.5-5.5); Sodium, Blood 140 mmol/L (136-145); Total Protein, Blood 6.6 g/dL (6.4-8.2)
== END 2020-01-30 21:08 | disposition home or self-care (01) ==
LOC: ER 17:12
PROVIDERS: Emergency Medicine
DX: S81.802A Unspecified open wound, left lower leg, initial encounter (principal); I89.0 Lymphedema, not elsewhere classified; I11.0 Hypertensive heart disease with heart failure; I50.32 Chronic diastolic (congestive) heart failure; E11.9 Type 2 diabetes mellitus without complications; I48.91 Unspecified atrial fibrillation; G47.33 Obstructive sleep apnea (adult) (pediatric); Z79.899 Other long term (current) drug therapy; Z79.02 Long term (current) use of antithrombotics/antiplatelets; Z99.89 Dependence on other enabling machines and devices; Z87.891 Personal history of nicotine dependence; X58.XXXA Exposure to other specified factors, initial encounter
CPT/HCPCS: 71045; 80053; 85025; 93005; 93010; 99284-25

== ENCOUNTER → 2020-07-16 | Outpatient (CLI) | payer OTHER ==
[~2020-07-16] MED LIST changes: +ASPIR 8181 M1 PO; +COMBIVENT RESPIM4 G1 INH; -COMBIVENT RESPIM4 GM INH; +DILT120 PO; +OMEP20ER PO; +PERCOCET 10-321 EAC2 PO; -PERCOCET 10-321 EACH PO; +SANTYL U TOP; +SERT100 PO; -SERT50 PO; +UNNA-FLEX CONV1 EACH TOP; +[UNRECOGNIZED DRUG - OTHER] TOP
[2020-07-16 18:09] LABS: Hematocrit 31.2 % (37.0-53.0); Mean Corpuscular HGB 25.8 pg (26.0-34.0); Mean Corpuscular HGB Conc 28.8 g/dL (31.5-36.5); Mean Corpuscular Volume 89 fL (80-100); Mean Platelet Volume 9.6 fL (9.1-12.4); Platelet Count 227 K/mm3 (150-400); RDW Coefficient Variation 19.5 % (11.7-14.2); RDW Standard Deviation 63.9 fL (35.1-46.3); Red Blood Cell Count 3.49 M/mm3 (4.30-5.90); White Blood Cell Count 6.92 K/mm3 (4.00-11.30)
[2020-07-16 18:17] LABS: Magnesium, Blood 2.7 mg/dL (1.6-2.4)
[2020-07-16 18:30] LABS: Albumin, Blood 2.8 g/dL (3.4-5.0); Albumin/Globulin Ratio 0.5 (0.8-1.8); Bilirubin, Total 0.7 mg/dL (0.1-1.0); Bun/Creatinine Ratio 38.5 (12.0-20.0); Calcium, Blood 8.9 mg/dL (8.5-10.1); Creatinine, Blood 1.87 mg/dL (0.60-1.20); Globulin, Blood 5.3 g/dL (2.2-4.0); Total Protein, Blood 8.1 g/dL (6.4-8.2)
== END | disposition home or self-care (01) ==
LOC: EDSTATUS 14:32 → LAB RH 17:00
PROVIDERS: Internal Medicine
DX: I50.32 Chronic diastolic (congestive) heart failure (principal); L03.116 Cellulitis of left lower limb
CPT/HCPCS: 80053; 83735; 85027

== ENCOUNTER → 2020-07-27 | Outpatient (CLI) | payer OTHER ==
[2020-07-27 08:42] LABS: Hemoglobin 8.9 g/dL (13.5-17.5); Mean Corpuscular HGB 25.1 pg (26.0-34.0); Mean Corpuscular HGB Conc 27.8 g/dL (31.5-36.5); Mean Corpuscular Volume 90 fL (80-100); Mean Platelet Volume 9.7 fL (9.1-12.4); Platelet Count 170 K/mm3 (150-400); Red Blood Cell Count 3.55 M/mm3 (4.30-5.90); White Blood Cell Count 4.83 K/mm3 (4.00-11.30)
[2020-07-27 09:02] LABS: Percent Saturation 6.3 % (20.0-50.0)
[2020-07-27 09:04] LABS: Creatinine Urine 36.6 mg/dL (27.00-270.00); Protein, Urine Quantitative 5.5 mg/dL (0.0-11.9)
[2020-07-27 09:20] LABS: Alanine Aminotransfer (ALT/SGP 8 U/L (12-78); Albumin, Blood 2.5 g/dL (3.4-5.0); Albumin/Globulin Ratio 0.5 (0.8-1.8); Alk Phos 116 U/L (50-136); Anion Gap 3 mmol/L (6-16); Aspartate Aminotrans (AST/SGOT 18 U/L (12-37); Bilirubin, Direct 0.3 mg/dL (0.0-0.3); Bilirubin, Indirect 0.4 mg/dL (0.1-0.7); Bilirubin, Total 0.7 mg/dL (0.1-1.0); Blood Urea Nitrogen 29 mg/dL (8-24); Bun/Creatinine Ratio 22.1 (12.0-20.0); CHOL/HDL RATIO 2.1; CO2, Blood 33 mmol/L (21-32); Calcium, Blood 8.4 mg/dL (8.5-10.1); Chloride, Blood 105 mmol/L (98-108); Cholesterol 79 mg/dL (50-200); Creatinine, Blood 1.31 mg/dL (0.60-1.20); Globulin, Blood 5.2 g/dL (2.2-4.0); Glomerular Filtration Rate 59 (60-); Glucose, Blood 69 mg/dL (70-99); HDL Cholesterol 38 mg/dL (>39); LDL/HDL RATIO 0.8; Low Density Lipoprotein Chol 32 mg/dL (0-110); Phosphorus, Blood 4.2 mg/dL (2.5-4.9); Potassium, Blood 4.2 mmol/L (3.5-5.5); Sodium, Blood 141 mmol/L (136-145); Thyroid Stimulating Hormone 0.777 uIU/mL (0.360-4.800); Total Protein, Blood 7.7 g/dL (6.4-8.2); Triglycerides 44 mg/dL (30-160); Uric Acid, Blood 8.7 mg/dL (3.5-7.2); Very Low Density Lipoprot Chol 8 mg/dL (6-32)
[2020-07-30 15:08] LABS: A/G RATIO 0.6 (0.7-1.7); ALBUMIN 2.7 g/dL (2.9-4.4); ALPHA-1-GLOBULIN 0.3 g/dL (0.0-0.4); ALPHA-2-GLOBULIN 0.7 g/dL (0.4-1.0); BETA GLOBULIN 1.2 g/dL (0.7-1.3); GAMMA GLOBULIN 2.4 g/dL (0.4-1.8); GLOBULIN, TOTAL 4.6 g/dL (2.2-3.9); IMMUNOGLOBULIN A, QN, SERUM 763 mg/dL (90-386); IMMUNOGLOBULIN G, QN, SERUM 2286 mg/dL (603-1613); IMMUNOGLOBULIN M, QN, SERUM 129 mg/dL (20-172); M-SPIKE Not Observed g/dL (Not Observed); PROTEIN, TOTAL, SERUM 7.3 g/dL (6.0-8.5)
[2020-08-01 12:10] LABS: ANA DIRECT Negative (Negative); ANTIMYELOPEROXIDASE (MPO) ABS <9.0 U/mL (0.0-9.0); ANTIPROTEINASE 3 (PR-3) ABS 3.8 U/mL (0.0-3.5); ATYPICAL PANCA <1:20 titer (Neg:<1:20); CYTOPLASMIC (C-ANCA) <1:20 titer (Neg:<1:20); PERINUCLEAR (P-ANCA) <1:20 titer (Neg:<1:20)
== END | disposition home or self-care (01) ==
LOC: LAB RH 06:45 → EDSTATUS 14:33
PROVIDERS: Internal Medicine Nephrology
DX: N18.2 Chronic kidney disease, stage 2 (mild) (principal); N25.81 Secondary hyperparathyroidism of renal origin; D50.9 Iron deficiency anemia, unspecified; E55.9 Vitamin D deficiency, unspecified; E78.00 Pure hypercholesterolemia, unspecified; R76.9 Abnormal immunological finding in serum, unspecified; R94.5 Abnormal results of liver function studies; R94.6 Abnormal results of thyroid function studies
CPT/HCPCS: 80053; 80061; 81050; 82248; 82306; 82570; 82607; 82728; 82746; 82784; 83520; 83540; 83550; 83883; 83970; 84100; 84153; 84155; 84156; 84165; 84443; 84550; 85027; 86256; 86334

== ENCOUNTER 2020-08-18 12:38 | Emergency (ER) | payer OTHER ==
[~2020-08-18] VITALS: Ht 177.8 cm; Wt 181.4 kg
[~2020-08-18 12:38] MED LIST changes: -Acetaminophen325 M1 PO; -Aspirin EC81 MG PO; -BISA10S PR; -BUMETANIDE2 M2 PO; -CLOTRIMAZOLE AF1524 TOP; -ELIQUIS5 M3 PO; -FURO80 PO; -Fleet Enema132 ML PR; -METO2.5 PO; -NEURONTIN300 MG PO; -NYAMYC15 G1 TOP; -OXYC5; -PANT40 PO; -PANTOPRAZOLE SO40 M2 PO; -PERCOCET 10-321 EAC4 PO; -PREG25 PO; -Prednisone50 MG PO; -Promod946 ML PO; -SERTRALINE HCL50 MG PO; -SPIRONOLACTONE25 MG PO; -TAMSULOSIN HCL0.4 M1 PO; -Vitamin D2000 UNIT PO
[2020-08-18] MEDS ORDERED: METO50ER PO (12:57)
[2020-08-18] MEDS ORDERED: SERTRALINE HCL50 MG PO (12:57)
[2020-08-18] MEDS ORDERED: FURO80 PO (12:58)
[2020-08-18] MEDS ORDERED: GABA300 PO (12:58)
[2020-08-18] MEDS ORDERED: Vitamin D2000 UNIT PO (12:58)
[2020-08-18] MEDS ORDERED: POTA10T PO (12:58)
[2020-08-18] MEDS ORDERED: PERCOCET 10-321 EAC4 PO ×2 (12:59→13:00)
[2020-08-18] MEDS ORDERED: PANT40 PO (12:59)
[2020-08-18] MEDS ORDERED: COMBIVENT RESPIM4 G1 INH (12:59)
[2020-08-18 13:35] LABS: Bicarbonate Venous 32.7 mmol/L (24.0-30.0); PCO2 Venous 46.5 mmHg (38-42); PO2 Venous 133 mmHg (38-42); pH Blood Venous 7.47 (7.34-7.37)
[2020-08-18 13:52] LABS: BASOPHILS ABSOLUTE AUTO 0.03 K/mm3 (0.00-0.23); BASOPHILS PERCENT AUTO 1 % (0-2); EOSINOPHILS ABSOLUTE AUTO 0.61 K/mm3 (0.00-0.68); EOSINOPHILS PERCENT AUTO 12 % (0-6); Hematocrit 32.1 % (37.0-53.0); Hemoglobin 8.9 g/dL (13.5-17.5); IMMATURE GRAN ABSOLUTE AUTO 0.01 K/mm3 (0.00-0.10); IMMATURE GRAN PERCENT AUTO 0 % (0-1); LYMPHOCYTES ABSOLUTE AUTO 0.54 K/mm3 (0.84-5.20); LYMPHOCYTES PERCENT AUTO 10 % (21-46); MONOCYTES ABSOLUTE AUTO 0.64 K/mm3 (0.16-1.47); MONOCYTES PERCENT AUTO 12 % (4-13); Mean Corpuscular HGB 23.6 pg (26.0-34.0); Mean Corpuscular HGB Conc 27.7 g/dL (31.5-36.5); Mean Corpuscular Volume 85 fL (80-100); NEUTROPHILS ABSOLUTE AUTO 3.38 K/mm3 (1.96-9.15); NEUTROPHILS PERCENT AUTO 65 % (41-73); Platelet Count 227 K/mm3 (150-400); RDW Coefficient Variation 17.5 % (11.7-14.2); RDW Standard Deviation 54.4 fL (35.1-46.3); Red Blood Cell Count 3.77 M/mm3 (4.30-5.90); White Blood Cell Count 5.21 K/mm3 (4.00-11.30)
[2020-08-18 14:04] LABS: Alanine Aminotransfer (ALT/SGP 10 U/L (12-78); Albumin, Blood 2.7 g/dL (3.4-5.0); Albumin/Globulin Ratio 0.5 (0.8-1.8); Alk Phos 112 U/L (50-136); Anion Gap 4 mmol/L (6-16); Aspartate Aminotrans (AST/SGOT 20 U/L (12-37); Bilirubin, Total 0.9 mg/dL (0.1-1.0); Blood Urea Nitrogen 48 mg/dL (8-24); Bun/Creatinine Ratio 26.2 (12.0-20.0); CO2, Blood 33 mmol/L (21-32); Chloride, Blood 104 mmol/L (98-108); Creatinine, Blood 1.83 mg/dL (0.60-1.20); Globulin, Blood 5.7 g/dL (2.2-4.0); Glomerular Filtration Rate 40 (60-); Glucose, Blood 93 mg/dL (70-99); Potassium, Blood 4.2 mmol/L (3.5-5.5); Sodium, Blood 141 mmol/L (136-145); Total Protein, Blood 8.4 g/dL (6.4-8.2); Troponin I <0.015 ng/mL (0.000-0.040)
[2020-08-18 15:10] LABS: Influenza A, PCR Negative (NEGATIVE); Influenza B, PCR Negative (NEGATIVE); Resp Syncytial Virus, PCR Negative (NEGATIVE); SARS-Cov-2 (COVID-19) PCR, MMC Negative (NEGATIVE)
[2020-08-18] MEDS ORDERED: Prednisone50 MG PO (16:06)
[2020-08-18] MEDS ORDERED: ELIQUIS5 M3 PO (16:34)
[2020-08-18] MEDS ORDERED: Promod946 ML PO (16:49)
[2020-08-18] MEDS ORDERED: MIRALAX17 GM PO (16:55)
[2020-08-18] MEDS ORDERED: Percocet 10-321 EACH PO (16:56)
[2020-08-18] MEDS ORDERED: NYAMYC15 G1 TOP (16:59)
== END 2020-08-18 18:29 | disposition home or self-care (01) ==
LOC: ER 12:38
PROVIDERS: Emergency Medicine
DX: E87.70 Fluid overload, unspecified (principal); N17.9 Acute kidney failure, unspecified; J44.1 Chronic obstructive pulmonary disease with (acute) exacerbation; I13.0 Hypertensive heart and chronic kidney disease with heart failure and stage 1 through stage 4 chronic kidney disease, or unspecified chronic kidney disease; E11.22 Type 2 diabetes mellitus with diabetic chronic kidney disease; I50.30 Unspecified diastolic (congestive) heart failure; N18.9 Chronic kidney disease, unspecified; I48.91 Unspecified atrial fibrillation; Z79.01 Long term (current) use of anticoagulants; Z79.899 Other long term (current) drug therapy; Z88.1 Allergy status to other antibiotic agents; Z20.828 Contact with and (suspected) exposure to other viral communicable diseases; Z87.891 Personal history of nicotine dependence
CPT/HCPCS: 0241U; 36415; 71045; 80053; 82803; 83880; 84484; 85025; 93005; 93010; 94640; 96374; 96375; 99285-25; J1100; J1940

== ENCOUNTER → 2020-08-18 | Outpatient (CLI) | payer OTHER ==
[~2020-08-18] MED LIST changes: +Acetaminophen325 M1 PO; +Aspirin EC81 MG PO; +BISA10S PR; +BUMETANIDE2 M2 PO; +CLOTRIMAZOLE AF1524 TOP; +ELIQUIS5 M3 PO; +FURO80 PO; +Fleet Enema132 ML PR; +METO2.5 PO; +NEURONTIN300 MG PO; +NYAMYC15 G1 TOP; +OXYC5; +PANT40 PO; +PANTOPRAZOLE SO40 M2 PO; +PERCOCET 10-321 EAC4 PO; +PREG25 PO; +Prednisone50 MG PO; +Promod946 ML PO; +SERTRALINE HCL50 MG PO; +SPIRONOLACTONE25 MG PO; +TAMSULOSIN HCL0.4 M1 PO; +Vitamin D2000 UNIT PO
[2020-08-18 10:27] LABS: BASOPHILS ABSOLUTE AUTO 0.03 K/mm3 (0.00-0.23); BASOPHILS PERCENT AUTO 1 % (0-2); EOSINOPHILS ABSOLUTE AUTO 0.57 K/mm3 (0.00-0.68); EOSINOPHILS PERCENT AUTO 11 % (0-6); Hematocrit 30.7 % (37.0-53.0); Hemoglobin 8.9 g/dL (13.5-17.5); IMMATURE GRAN ABSOLUTE AUTO 0.01 K/mm3 (0.00-0.10); IMMATURE GRAN PERCENT AUTO 0 % (0-1); LYMPHOCYTES ABSOLUTE AUTO 0.42 K/mm3 (0.84-5.20); LYMPHOCYTES PERCENT AUTO 8 % (21-46); MONOCYTES ABSOLUTE AUTO 0.57 K/mm3 (0.16-1.47); MONOCYTES PERCENT AUTO 11 % (4-13); Mean Corpuscular HGB 24.3 pg (26.0-34.0); Mean Corpuscular Volume 84 fL (80-100); Mean Platelet Volume 9.8 fL (9.1-12.4); NEUTROPHILS ABSOLUTE AUTO 3.41 K/mm3 (1.96-9.15); NEUTROPHILS PERCENT AUTO 68 % (41-73); Platelet Count 208 K/mm3 (150-400); RDW Coefficient Variation 17.4 % (11.7-14.2); RDW Standard Deviation 53.6 fL (35.1-46.3); Red Blood Cell Count 3.66 M/mm3 (4.30-5.90); White Blood Cell Count 5.01 K/mm3 (4.00-11.30)
[2020-08-18 10:35] LABS: Albumin, Blood 2.7 g/dL (3.4-5.0); Albumin/Globulin Ratio 0.5 (0.8-1.8); Bilirubin, Total 0.9 mg/dL (0.1-1.0); Bun/Creatinine Ratio 26.5 (12.0-20.0); Calcium, Blood 8.8 mg/dL (8.5-10.1); Creatinine, Blood 1.85 mg/dL (0.60-1.20); Globulin, Blood 5.7 g/dL (2.2-4.0); Magnesium, Blood 2.5 mg/dL (1.6-2.4); Potassium, Blood 3.9 mmol/L (3.5-5.5); Total Protein, Blood 8.4 g/dL (6.4-8.2)
== END | disposition home or self-care (01) ==
LOC: LAB RH 10:18
PROVIDERS: Hospitalist
DX: E87.6 Hypokalemia (principal); N17.8 Other acute kidney failure
CPT/HCPCS: 80053; 83735; 85025

== ENCOUNTER 2021-01-10 14:05 | Inpatient (IN) | payer OTHER, MEDICARE ==
[~2021-01-10] VITALS: Ht 177.8 cm; Wt 170.7 kg
[~2021-01-10 14:05] MED LIST changes: +ELIQUIS5 M3 PO; +FURO80 PO; +NYAMYC15 G1 TOP; +PANT40 PO; +PERCOCET 10-321 EAC4 PO; +Prednisone50 MG PO; +Promod946 ML PO; +SERTRALINE HCL50 MG PO; +Vitamin D2000 UNIT PO
[2021-01-10 14:25] LABS: Calcium, Ionized (POC) 0.99 mmol/L (1.10-1.46); Chloride (POC) 98 mmol/L (98-108); Creatinine (POC) 1.7 mg/dL (0.8-1.3); Glucose (ISTAT POC) 89 mg/dL (70-99); Hemoglobin (POC) 12.6 g/dL (13.5-17.5); Potassium (POC) 4.8 mmol/L (3.5-5.5); Sodium (POC) 138 mmol/L (135-148); Total CO2 (POC) 34 mmol/L (21-32)
[2021-01-10 14:46] LABS: BASOPHILS ABSOLUTE AUTO 0.03 K/mm3 (0.00-0.23); BASOPHILS PERCENT AUTO 0 % (0-2); EOSINOPHILS ABSOLUTE AUTO 0.11 K/mm3 (0.00-0.68); EOSINOPHILS PERCENT AUTO 1 % (0-6); Hematocrit 35.5 % (37.0-53.0); Hemoglobin 10.1 g/dL (13.5-17.5); IMMATURE GRAN PERCENT AUTO 1 % (0-1); LYMPHOCYTES ABSOLUTE AUTO 0.26 K/mm3 (0.84-5.20); LYMPHOCYTES PERCENT AUTO 2 % (21-46); MONOCYTES ABSOLUTE AUTO 0.96 K/mm3 (0.16-1.47); MONOCYTES PERCENT AUTO 8 % (4-13); Mean Corpuscular HGB 22.9 pg (26.0-34.0); Mean Corpuscular HGB Conc 28.5 g/dL (31.5-36.5); Mean Corpuscular Volume 81 fL (80-100); Mean Platelet Volume 10.5 fL (9.1-12.4); NEUTROPHILS ABSOLUTE AUTO 10.98 K/mm3 (1.96-9.15); NEUTROPHILS PERCENT AUTO 88 % (41-73); Platelet Count 211 K/mm3 (150-400); RDW Coefficient Variation 19.6 % (11.7-14.2); RDW Standard Deviation 56.7 fL (35.1-46.3); Red Blood Cell Count 4.41 M/mm3 (4.30-5.90); White Blood Cell Count 12.44 K/mm3 (4.00-11.30)
[2021-01-10 15:00] LABS: International Normalized Ratio 1.44; Prothrombin Time Results 15.2 Sec (9.7-11.5)
[2021-01-10 15:02] LABS: Alanine Aminotransfer (ALT/SGP 11 U/L (12-78); Albumin, Blood 2.7 g/dL (3.4-5.0); Albumin/Globulin Ratio 0.5 (0.8-1.8); Alk Phos 138 U/L (50-136); Anion Gap 4 mmol/L (6-16); Aspartate Aminotrans (AST/SGOT 23 U/L (12-37); Bilirubin, Total 1.4 mg/dL (0.1-1.0); Blood Urea Nitrogen 59 mg/dL (8-24); Bun/Creatinine Ratio 40.4 (12.0-20.0); CO2, Blood 34 mmol/L (21-32); Calcium, Blood 9.1 mg/dL (8.5-10.1); Chloride, Blood 101 mmol/L (98-108); Creatinine, Blood 1.46 mg/dL (0.60-1.20); Ethanol (Alcohol), Blood, Med <3 mg/dL; Globulin, Blood 5.4 g/dL (2.2-4.0); Glomerular Filtration Rate 52 (60-); Glucose, Blood 92 mg/dL (70-99); Magnesium, Blood 2.3 mg/dL (1.6-2.4); Potassium, Blood 4.9 mmol/L (3.5-5.5); Sodium, Blood 139 mmol/L (136-145); Total Protein, Blood 8.1 g/dL (6.4-8.2); Troponin I 0.022 ng/mL (0.000-0.040)
[2021-01-10 15:16] LABS: Salicylate <1.7 mg/dL (2.8-20.0)
[2021-01-10 15:17] LABS: Base Excess Venous 10.7 mmol/L; Bicarbonate Venous 33.1 mmol/L (24.0-30.0); PCO2 Venous 51.6 mmHg (38-42); PO2 Venous 162 mmHg (38-42); pH Blood Venous 7.44 (7.34-7.37)
[2021-01-10 15:25] LABS: Acetaminophen, Random <2.0 ug/mL (10.0-30.0)
[2021-01-10 16:08] LABS: Source, Urine Catheter
[2021-01-10 16:15] LABS: Appearance, Urine Hazy (Clear); Bilirubin, Urine Neg (Neg); Blood, Urine Neg (Neg); Color, Urine Yellow (P-Yellow); Glucose Qualitative, Urine Neg (Neg); Ketones, Urine Neg (Neg); Leukocyte Esterase, Urine Neg (Neg); Nitrite, Urine Neg (Neg); Protein, Urine Neg (Neg); Urobilinogen, Urine 2+ (Normal); pH, Urine 6.5 (5.0-8.0)
[2021-01-10 16:29] LABS: Red Blood Cells, Urine 0-2 /hpf (0-2); Squamous Epithelial Cells Few /hpf (Few); White Blood Cells, Urine 0-2 /hpf (0-5)
[2021-01-10 16:30] LABS: Bacteria Few /hpf; Hyaline Casts 0-2 /lpf (0-2)
[2021-01-10 16:34] LABS: U Amphetamine Screen Not Detected; U Barbituate Screen Not Detected; U Benzodiazapine Screen Not Detected; U Buprenorphine Screen Not Detected; U Cannabinoids Screen Not Detected; U Cocaine Screen Not Detected; U Methadone Screen Not Detected; U Methamphetamine Screen Not Detected; U Opiates Screen Not Detected; U Oxycodone Screen DETECTED; U Phencyclidine Screen Not Detected; U Propoxyphene Screen Not Detected
[2021-01-10] MEDS ORDERED: SPIRONOLACTONE25 MG PO (17:04)
[2021-01-10] MEDS ORDERED: TAMSULOSIN HCL0.4 M1 PO (17:04)
[2021-01-10] MEDS ORDERED: NEURONTIN300 MG PO (17:04)
[2021-01-10] MEDS ORDERED: BUMETANIDE2 M2 PO (17:05)
[2021-01-10] MEDS ORDERED: METO2.5 PO (17:05)
[2021-01-10] MEDS ORDERED: PANTOPRAZOLE SO40 M2 PO (17:06)
[2021-01-10] MEDS ORDERED: Aspirin EC81 MG PO (17:15)
--- NOTE | 2021-01-10 19:06 | NUR ---
ARRIVAL TO ICU PT ARRIVES TO ICU AT 1840. REPORT FROM FAROOQ GARCÍA. PT MOANING. RESPONSES TO NAME, ABLE TO STATE BIRTHDAY. PT SOILED. SKIN IN POOR CONDITION. CRUSTING TO LEGS, MULTIPLE DISCOLORATIONS. SKIN ASSESSMENT NOT COMPLETE YET. LR BOLUS INFUSING. VSS.
[2021-01-11 04:01] LABS: BASOPHILS ABSOLUTE AUTO 0.09 K/mm3 (0.00-0.23); BASOPHILS PERCENT AUTO 0 % (0-2); EOSINOPHILS ABSOLUTE AUTO 0.01 K/mm3 (0.00-0.68); EOSINOPHILS PERCENT AUTO 0 % (0-6); Hematocrit 37.5 % (37.0-53.0); Hemoglobin 10.7 g/dL (13.5-17.5); IMMATURE GRAN PERCENT AUTO 1 % (0-1); LYMPHOCYTES ABSOLUTE AUTO 0.37 K/mm3 (0.84-5.20); LYMPHOCYTES PERCENT AUTO 2 % (21-46); MONOCYTES ABSOLUTE AUTO 1.06 K/mm3 (0.16-1.47); MONOCYTES PERCENT AUTO 5 % (4-13); Mean Corpuscular HGB Conc 28.5 g/dL (31.5-36.5); Mean Corpuscular Volume 81 fL (80-100); Mean Platelet Volume 9.9 fL (9.1-12.4); NEUTROPHILS ABSOLUTE AUTO 21.46 K/mm3 (1.96-9.15); NEUTROPHILS PERCENT AUTO 93 % (41-73); Platelet Count 259 K/mm3 (150-400); RDW Coefficient Variation 19.7 % (11.7-14.2); RDW Standard Deviation 56.7 fL (35.1-46.3); Red Blood Cell Count 4.65 M/mm3 (4.30-5.90); White Blood Cell Count 23.19 K/mm3 (4.00-11.30)
[2021-01-11 04:25] LABS: Calcium, Blood 8.5 mg/dL (8.5-10.1); Creatinine, Blood 1.5 mg/dL (0.60-1.20); Potassium, Blood 4.4 mmol/L (3.5-5.5); Thyroid Stimulating Hormone 0.442 uIU/mL (0.360-4.800)
--- NOTE | 2021-01-11 06:17 | NUR ---
SHIFT SUMMARY EARLY IN SHIFT PT VERY HYPOTENSIVE, PLACED PICC LINE DUE TO POOR VASCULAR ACCESS AND STARTED LEVOPHED. EVENTUALLY STARTED VASOPRESSIN, NOW TITRATING DOWN LEVOPHED, CURRENTLY @ 17 MCG/MIN THIS NURSE IS TYPING THIS NOTE. BP STABLE OF THIS WRITING. MENTATION, URINE OUTPUT HAVE BOTH IMPROVED WITH INCREASING BPs. PT DID C/O PAIN ONCE, STATING "MY SKELETON HURTS," WHEN ASKED HE COULD NOT POINT DIRECTLY TO WHRE HE WAS HURTING. ASSESSMENT IS CHARTED. VSS. WILL CONTINUE TO MONITOR.
--- NOTE | 2021-01-11 07:15 | NUR ---
ASSUMPTION OF CARE ASSUMED CARE OF PT AT THIS TIME. PT IS SLEEPING AT THIS TIME, DOES NOT WAKE UP WHILE RECEIVING BEDSIDE REPORT. PT CURRENTLY ON 2LPM VIA OXYMIZER WITH BIOX >95%. CONTINUOUS BILLET HEADER SHOWS AFIB WITH HR IN 70S. PT RECEIVING NS AT 75MLS/HR, VASOPRESSIN 0.04UNITS/MIN, AND LEVOPHED 17MCG/MIN. BP 100S/60S. NOC RN REPORTS FLUCTUATING HYPOTENSION THROUGHOUT NIGHT. EKENAN WRAPS APPLIED TO BLE. BLE DRY, FLAKY WITH PURPLE/BLUE DISCOLORATION. SCATTERED ECCHYMOSIS ON BUE, SKIN TEARS ON BILAT ELBOWS. MULTIPLE WOUND/PRESSURE PHOTOS IN CHART. CHOUDHARY PATENT AND DRAINING CALLI URINE. PT REPORTED SOMEWHAT CONFUSED AND SLOW TO RESPOND. SEE SHIFT ASSESSMENT.
--- NOTE | 2021-01-11 08:00 | NUR ---
PT WAKENS TO SLIGHT ARM SHAKING AND VERBAL STIMULI. PT IS ABLE TO STATE HIS NAME, BIRTHDAY, AND THAT HE IS IN THE HOSPITAL. MENTATION SEEMS TO CLEAR CONVERSATION CONTINUES. HE KNOWS HE LIVES AT [facility] AND HAS BEEN THERE FOR ABOUT A MONTH. WHEN ASKED IF HE PARTICIPATES IN PT HE SAYS HE DOES AND COULD ONLY STAND 3 TIMES. WHEN ASKED IF HE LIKES LIVING AT [facility] AND IF HE RECEIVES GOOD CARE HE STATES "YES THEY TAKE GOOD CARE OF ME BUT IT'S NOT HOME". PT TALKS ABOUT HIS DAUGHTER AND NEW GRANDCHILD. FOLLOWS COMMANDS BY SQUEEZING BILAT HANDS AND WIGGLES TOES. PO TRIAL OF WATER WAS SUCCESSFUL. PT DRANK ENSURE CLEAR WITHOUT DIFFICULTY.
[2021-01-11] MEDS ORDERED: OXYC5 (10:26)
[2021-01-11] MEDS ORDERED: POTCHL20ER PO (10:27)
[2021-01-11] MEDS ORDERED: Acetaminophen325 M1 PO (10:29)
[2021-01-11] MEDS ORDERED: Fleet Enema132 ML PR (10:30)
[2021-01-11] MEDS ORDERED: BISA10S PR (10:30)
[2021-01-11] MEDS ORDERED: Percocet 10-321 EACH PO (15:00)
--- NOTE | 2021-01-11 16:00 | NUR ---
ADMIT: 01/10/21 DISCHARGE: DX: Bilateral Cellulitis of lower leg CC: [email or web address] ADMIT: 12/07/20 DISCHARGE: 12/12/20 ADMIT: 07/16/20 DISCHARGE: 07/20/20 ADMIT: 05/11/20 DISCHARGE: 05/15/20 ADMIT: 01/19/20 DISCHARGE: 01/25/20 ADMIT: 10/12/19 DISCHARGE: 10/15/19 ADMIT: 07/03/19 DISCHARGE:07/05/19 RENNY CALL: RESIDENCE: [facility] CAREGIVER: Bernie Morataya, Parent, Eddy Morataya, Parent, DX: HTN, AFib, CHF, COPD, DM-type 2, see list DME: Wheelchair, hosptial bed, O2, wound care supplies CCM: Active HOME HEALTH: [facility]- SUMMARY: Admit: 01/10/21 01/11/21- per chart review with Dr. Torres, pt will be staying through the weekend and at discharge, back to [facility]. -rebekah
--- NOTE | 2021-01-11 18:35 | NUR ---
SHIFT SUMMARY PT REMAINS ON 2LPM VIA NC WITH BIOX >95%. AWAKES TO VERBAL STIMULI. PT ATE BREAKFAST, LUNCH, AND SOME OF DINNER WITHOUT ASSISTANCE. MANAGING PO FLUIDS INDEPENDENTLY. LEVOPHED RUNNING AT 11MCG/MIN. VASOPRESSIN OFF. CHOUDHARY PATENT AND DRAINING. 1200ML OUTPUT THROUGHOUT SHIFT. ONE LARGE FORMED BOWEL MOVEMENT DURING SHIFT. PT ABLE TO VERBALIZE NEEDS, PT IS SLEEPING AT THIS TIME. WILL REPORT TO ONCOMING RN.
[2021-01-12 03:39] LABS: BASOPHILS ABSOLUTE AUTO 0.05 K/mm3 (0.00-0.23); BASOPHILS PERCENT AUTO 0 % (0-2); EOSINOPHILS ABSOLUTE AUTO 0.13 K/mm3 (0.00-0.68); EOSINOPHILS PERCENT AUTO 1 % (0-6); Hematocrit 33.6 % (37.0-53.0); Hemoglobin 9.7 g/dL (13.5-17.5); IMMATURE GRAN ABSOLUTE AUTO 0.06 K/mm3 (0.00-0.10); IMMATURE GRAN PERCENT AUTO 1 % (0-1); LYMPHOCYTES ABSOLUTE AUTO 0.61 K/mm3 (0.84-5.20); LYMPHOCYTES PERCENT AUTO 5 % (21-46); MONOCYTES ABSOLUTE AUTO 1.39 K/mm3 (0.16-1.47); MONOCYTES PERCENT AUTO 11 % (4-13); Mean Corpuscular HGB 22.8 pg (26.0-34.0); Mean Corpuscular HGB Conc 28.9 g/dL (31.5-36.5); Mean Corpuscular Volume 79 fL (80-100); Mean Platelet Volume 9.7 fL (9.1-12.4); NEUTROPHILS PERCENT AUTO 82 % (41-73); Platelet Count 224 K/mm3 (150-400); RDW Coefficient Variation 19.6 % (11.7-14.2); RDW Standard Deviation 54.6 fL (35.1-46.3); Red Blood Cell Count 4.26 M/mm3 (4.30-5.90); White Blood Cell Count 12.64 K/mm3 (4.00-11.30)
[2021-01-12 04:00] LABS: Alanine Aminotransfer (ALT/SGP 11 U/L (12-78); Albumin, Blood 2.3 g/dL (3.4-5.0); Albumin/Globulin Ratio 0.5 (0.8-1.8); Alk Phos 104 U/L (50-136); Anion Gap 5 mmol/L (6-16); Aspartate Aminotrans (AST/SGOT 17 U/L (12-37); Bilirubin, Total 1.3 mg/dL (0.1-1.0); Blood Urea Nitrogen 45 mg/dL (8-24); Bun/Creatinine Ratio 35.7 (12.0-20.0); CO2, Blood 33 mmol/L (21-32); Calcium, Blood 8.4 mg/dL (8.5-10.1); Chloride, Blood 98 mmol/L (98-108); Creatinine, Blood 1.26 mg/dL (0.60-1.20); Globulin, Blood 4.9 g/dL (2.2-4.0); Glomerular Filtration Rate >60 (60-); Glucose, Blood 119 mg/dL (70-99); Potassium, Blood 3.6 mmol/L (3.5-5.5); Sodium, Blood 136 mmol/L (136-145); Total Protein, Blood 7.2 g/dL (6.4-8.2)
[2021-01-12 04:04] LABS: Vancomycin, Trough 31.1 ug/mL (5.0-10.0)
--- NOTE | 2021-01-12 05:39 | NUR ---
SHIFT SUMMARY PATIENT SLEPT WELL THRU NIGHT. COMPLAINED OF PAIN TWICE, CONTROLLED WELL WITH SCHEDULED FENTANYL AND FREQUENT REPOSITIONING. NO FURTHER CHANGES TO NOTE. ASSESSMENT IS CHARTED. VSS. WILL CONTINUE TO MONITOR.
--- NOTE | 2021-01-12 07:15 | NUR ---
ASSUMPTION OF CARE ASSUMED CARE OF PT AT THIS TIME. PT REMAINS ON 2L VIA NC. PT WAKES TO VERBAL STIMULI. CURRENTLY RECEIVING LEVOPHED AT 8MCG/MIN. CHOUDHARY IN PLACE AND DRAINING. DR VILLALPANDO AT BEDSIDE TO DISCUSS PLAN OF CARE. DISCUSSED NEED FOR PARTICIPATION WITH PT/OT TO INCREASE LIKELIHOOD OF D/C. CBG 100, GIVEN CLEAR LIQUID BREAKFAST. PT ABLE TO FEED SELF. SEE SHIFT ASSESSMENT.
--- NOTE | 2021-01-12 16:50 | NUR ---
Initial palliative care consult: Vipin is a 61 year old gentleman who has a history of morbid obesity, COPD, chronic, venous stasis wounds, a-fib, diastolic heart failure, DM type 2, GARRICK, pulmonary HTN. He was admitted from [facility] on 01/10/21 for sepsis. Vipin reports that he has lived with his dtr for the past several years. He states that he has been at [facility] recently for rehab. He dtr has a . Vipin reports that his memory is poor and that he is unsure of the timeline of admissions to hospital, SNF and living with his dtr. He reports that he isn't able to get around much. Mostly bedbound per report. Was working with therapy at SNF to stand at the bedside. He states he has a cane, walker, hopsital bed and a scooter at his house. He reports that his only complaint is pain. He describes the pain as "all over his body" currently an 04/09. He states he takes oxycodone QID at rehab. Medications reviewed. He also takes gabapentin at rehab 300 mg BID which is isn't currently on at the hospital. He states that he has a POLST form in the registry and is asking for assistance in locating his cell phone and wallet. POLST form on chart. Full code, full treatment dated 07/19. Pt reports that this is his current wish, however he states that the doctor told him this morning that his chronic conditions will not improve. He reports that he needs to have a conversation with his dtr about what his future care wishes are. Offered to help facilitate that conversation, pt declined for now. PC will remain available as needed for advanced care planning. Phone call to [facility], spoke with Berta who is Vipin's nurse. She reports his wallet and cell phone were in his room. She placed his wallet in the safe and left his phone in his room at . Spoke with Dr. Torres, gave her an update. New order rec'd for gabapentin 300 mg BID PO. Order placed in EMR per Dr. Torres's request. Let Dr. Torres know that pt is planning to talk to his dtr about what his care wishes are. PC to continue to follow for symptom management and advanced care planning.
--- NOTE | 2021-01-12 17:33 | NUR ---
SHIFT SUMMARY PT REMAINS ON 2L VIA NC. PT HAS BEEN AWAKE MOST OF THE DAY WATCHING TV. PARTICIPATES IN CONVERSATION AND USES CALL LIGHT APPROPRIATELY. LEVOPHED HAS BEEN TITRATED DOWN TO 2MCG/MIN. PT PARTICIPATED IN PHYSICAL THERAPY AFTER DISCUSSION WITH DR VILLALPANDO. ALSO DISCUSSED FUTURE CARE AND OPTIONS WITH VERITO FROM PALLIATIVE CARE. PT REPORTS HE WILL DISCUSS THESE OPTIONS WITH HIS DAUGHTER. DAUGHTER CAME TO VISIT AND IS AT BEDSIDE. WILL REPORT TO ONCOMING RN.
--- NOTE | 2021-01-12 18:47 | NUR ---
PT'S DAUGHTER CALLED FOLLOWING VISIT WITH PT. DAUGHTER EXPRESSES CONCERN OVER PT'S OCCASIONAL CONFUSION REGARDING LOCATION. PER DAUGHTER PT BELIEVED THAT HE WAS IN "[place]" AND WAS ASKING PT "CONFUSING QUESTIONS". PER LOW PRESSURE BOILER OPERATOR, PT HAD PERIOD OF CONFUSION EARLIER IN SHIFT IN WHICH HE INQUIRED ABOUT LOCATION AND STATED HE "THINKS HE WAS A LITTLE CONFUSED" AND WAS ABLE TO REORIENT HIMSELF EASILY.
[2021-01-13 03:30] LABS: BASOPHILS ABSOLUTE AUTO 0.03 K/mm3 (0.00-0.23); BASOPHILS PERCENT AUTO 0 % (0-2); EOSINOPHILS ABSOLUTE AUTO 0.45 K/mm3 (0.00-0.68); EOSINOPHILS PERCENT AUTO 5 % (0-6); Hematocrit 30.9 % (37.0-53.0); Hemoglobin 8.9 g/dL (13.5-17.5); IMMATURE GRAN ABSOLUTE AUTO 0.03 K/mm3 (0.00-0.10); IMMATURE GRAN PERCENT AUTO 0 % (0-1); LYMPHOCYTES ABSOLUTE AUTO 0.43 K/mm3 (0.84-5.20); LYMPHOCYTES PERCENT AUTO 5 % (21-46); MONOCYTES ABSOLUTE AUTO 0.85 K/mm3 (0.16-1.47); MONOCYTES PERCENT AUTO 10 % (4-13); Mean Corpuscular HGB 22.9 pg (26.0-34.0); Mean Corpuscular HGB Conc 28.8 g/dL (31.5-36.5); Mean Corpuscular Volume 80 fL (80-100); Mean Platelet Volume 9.9 fL (9.1-12.4); NEUTROPHILS ABSOLUTE AUTO 7.18 K/mm3 (1.96-9.15); NEUTROPHILS PERCENT AUTO 80 % (41-73); Platelet Count 208 K/mm3 (150-400); RDW Coefficient Variation 19.6 % (11.7-14.2); RDW Standard Deviation 55.8 fL (35.1-46.3); Red Blood Cell Count 3.88 M/mm3 (4.30-5.90); White Blood Cell Count 8.97 K/mm3 (4.00-11.30)
[2021-01-13 03:59] LABS: Alanine Aminotransfer (ALT/SGP 8 U/L (12-78); Albumin, Blood 2.3 g/dL (3.4-5.0); Albumin/Globulin Ratio 0.5 (0.8-1.8); Alk Phos 99 U/L (50-136); Anion Gap 3 mmol/L (6-16); Aspartate Aminotrans (AST/SGOT 17 U/L (12-37); Bilirubin, Total 1.2 mg/dL (0.1-1.0); Blood Urea Nitrogen 35 mg/dL (8-24); CO2, Blood 35 mmol/L (21-32); Calcium, Blood 8.4 mg/dL (8.5-10.1); Chloride, Blood 98 mmol/L (98-108); Creatinine, Blood 1.06 mg/dL (0.60-1.20); Globulin, Blood 4.8 g/dL (2.2-4.0); Glomerular Filtration Rate >60 (60-); Glucose, Blood 92 mg/dL (70-99); Potassium, Blood 3.6 mmol/L (3.5-5.5); Sodium, Blood 136 mmol/L (136-145); Total Protein, Blood 7.1 g/dL (6.4-8.2); Vancomycin, Random 20.7 ug/mL
--- NOTE | 2021-01-13 06:20 | NUR ---
SHIFT SUMMARY PATIENT SLEPT WELL THRU NIGHT. PAIN WELL CONTROLLED WITH AVAILABLE PRN MEDICATION. HAVE HAD TO MOTIVATE PATIENT FOR MOST BASIC OF MOVEMENTS, INCLUDING GRABBING WATER THAT IS EASILY ACCESSABLE ON HIS TABLE, TURNING THE CALL LIGHT OVER IN HIS HAND TO BE ABLE TO READ THE BUTTONS, AND SCRATCHING AN ITCH ON HIS NOSE. PATIENT IS FULLY CAPABLE OF DOING THESE HIMSELF, AND AM HAPPY TO PERFORM THESE ACTIONS, BUT DID REMIND PATIENT HE NEEDS TO DO THINGS THAT WILL ENABLE HIM TO GET BACK HOME, MOVE FORWARD WITH REHAB WORK. ASSESSMENT IS CHARTED. VSS. WILL CONTINUE TO MONITOR.
--- NOTE | 2021-01-13 10:35 | NUR ---
ASSUMED CARE OF THE PT. AT APPROX 10 AM. PT IS AWAKE AND WATCHING TV WHILE LAYING IN BED. HE RATES HIS PAIN AT 8/10 AND REPORTS THAT HE STAYS AT A 6/10 AT BASELINE. CHOUDHARY IS PATENT AND DRAINING CLEAR YELLOW URINE. O2 IS AT 2 LPM VIA NC AND HIS SATS ARE BETWEEN 99-100. HE HAS HIS CALL LIGHT IN REACH.
--- NOTE | 2021-01-13 12:51 | NUR ---
Pt continues to watch tv in bed. He has been nodding off and napping for short periods of time. His MAP continues to be above 60. Oral fluids have been encouraged and are at the bedside. Dr Torres saw the Pt at the bedside and gave the order to change the Pt to PCU status, charge nurse is aware. AC CBG was WNL and required no coverage. Pt remains in the high 90's on 2 LPM via NC. No major changes observed.
--- NOTE | 2021-01-13 14:45 | NUR ---
Pt was transferred to PCU. Report was given to receiving nurse. Pt stable upon transfer.
--- NOTE | 2021-01-13 18:23 | NUR ---
SHIFT SUMMARY THIS STUDENT ASSUMED CARE AT APPROX 1445. PT WAS ALERT TO SELF, PLACE, FAMILY AND EVENT. VSS W/ MOST RECENT BP AT 99/64 , MAP 75. SPO2 96% AT 2L 02 VIA NC. PT REPORTED PAIN 04/09 AND WAS TREATED PER EMAR. PIC IN MAYO WNL, PERIPH IV IN BOTH R AND L WNL. CHOUDHARY CATHETER IS IN PLACE AND DRAINING W/ GRAVITY. PT IS MAX ASSIST AND TRANSFER. HE IS VERY LIMITED IN MOBILITY DUE TO GENERALIZED WEAKNESS/OBESITY. LIFT RECOMMENDED FOR TRANSFER. BILAT LOWER EXTREMETIES ARE DRY/SCALY. KEENAN WRAPS ON BILATERAL LOWER EXTREMETIES TO PROTECT SKIN. PT HAD TWO TOES REMOVED ON LEFT FOOT DUE TO VENOUS STASIS/DM ULCERS. NO OTHER ACUTE CHANGES NOTED. PT CONTINUES TO REST/WATCH TV. CALL LIGHT IN REACH, BED IN LOW. WILL CONTINUE TO MONITOR FOR REMAINDER OF SHIFT.
--- NOTE | 2021-01-13 19:09 | NUR ---
THIS RN HAS REVIEWED NURSING STUDENTS DOCUMENTATION AND AM IN AGREEMENT. BP SOFT, BUT STABLE. PT REPORTING PAIN, MEDICATED PER EMAR. OTHER VSS. NO OTHER ACUTE CHAGNES NOTED. WILL CONTINUE TO MONITOR UNITL REPORT GIVEN TO ONCOMING RN.
--- NOTE | 2021-01-13 20:33 | NUR ---
SPOKE WITH BELKIS WHATLEY ABOUT PATIENT NOT BEING ON HIS NORMAL DAILY ANTICOAGULATION FOR CHRONIC AFIB, ELIQUIS 5MG. STATED IN MD DAY NOTE THAT IT WAS BEING GIVEN BUT EMAR SAYS OTHERWISE. BELKIS WHATLEY WANTED TO WAIT FOR DAY SHIFT TO ADDRESS IN CASE THEY WERE HOLDING IT FOR A REASON. PATIENT STABLE AND WILL CONTINUE TO MONITOR.
[2021-01-14 04:15] LABS: BASOPHILS ABSOLUTE AUTO 0.02 K/mm3 (0.00-0.23); BASOPHILS PERCENT AUTO 0 % (0-2); EOSINOPHILS ABSOLUTE AUTO 0.36 K/mm3 (0.00-0.68); EOSINOPHILS PERCENT AUTO 6 % (0-6); Hematocrit 31.1 % (37.0-53.0); Hemoglobin 8.7 g/dL (13.5-17.5); IMMATURE GRAN ABSOLUTE AUTO 0.04 K/mm3 (0.00-0.10); IMMATURE GRAN PERCENT AUTO 1 % (0-1); LYMPHOCYTES PERCENT AUTO 7 % (21-46); MONOCYTES ABSOLUTE AUTO 0.61 K/mm3 (0.16-1.47); MONOCYTES PERCENT AUTO 11 % (4-13); Mean Corpuscular HGB 22.9 pg (26.0-34.0); Mean Corpuscular Volume 82 fL (80-100); Mean Platelet Volume 9.7 fL (9.1-12.4); NEUTROPHILS ABSOLUTE AUTO 4.39 K/mm3 (1.96-9.15); NEUTROPHILS PERCENT AUTO 75 % (41-73); Platelet Count 168 K/mm3 (150-400); RDW Coefficient Variation 19.3 % (11.7-14.2); RDW Standard Deviation 57.1 fL (35.1-46.3); White Blood Cell Count 5.82 K/mm3 (4.00-11.30)
[2021-01-14 04:38] LABS: Alanine Aminotransfer (ALT/SGP 9 U/L (12-78); Albumin, Blood 2.3 g/dL (3.4-5.0); Albumin/Globulin Ratio 0.5 (0.8-1.8); Alk Phos 109 U/L (50-136); Anion Gap 4 mmol/L (6-16); Aspartate Aminotrans (AST/SGOT 15 U/L (12-37); Bilirubin, Total 1.3 mg/dL (0.1-1.0); Blood Urea Nitrogen 30 mg/dL (8-24); Bun/Creatinine Ratio 31.5 (12.0-20.0); CO2, Blood 35 mmol/L (21-32); Calcium, Blood 8.5 mg/dL (8.5-10.1); Chloride, Blood 96 mmol/L (98-108); Creatinine, Blood 0.95 mg/dL (0.60-1.20); Glomerular Filtration Rate >60 (60-); Glucose, Blood 74 mg/dL (70-99); Potassium, Blood 3.8 mmol/L (3.5-5.5); Sodium, Blood 135 mmol/L (136-145); Total Protein, Blood 7.3 g/dL (6.4-8.2); Vancomycin, Random 13.1 ug/mL
--- NOTE | 2021-01-14 05:32 | NUR ---
SHIFT SUMMARY PATIENT FOUND TO BE A PLEASANT GENTLEMAN WHO IS A&OX4 , BERNARDO, AND FOLLOWING COMMANDS. GENERALIZED WEAKNESS NOTED ESPECIALLY BLE AND NEEDS HELP WITH SMALL MOVEMENTS IN BED. BP IMPROVING THROUGHOUT SHIFT. CONTROLLED AFLUTTER ON THE MONITOR. ON 2L NC WHICH IS PATIENT HOME DOSE, SATING HIGH 90'S. WORE CPAP FOR 3ISH HOURS BEFORE REQUESTING NC. IS OPEN TO TRYING THIS AGAIN WITH FREQUENT ENCOURAGMENT. PAIN AT TOLERABLE LEVEL OF 5 CONSTANTLY AND PRN NORCO Q8H HELPING KEEP TOLERABLE. CHOUDHARY IN PLACE DRAINING TO GRAVITY. MANY SCATTERED ABRASIONS, PHYLLIS EXCORIATION AND SEVERE BLE VENOUS STASIS WOUNDS NOTED. KEENAN WRAP IN PLACE. DISTAL PULSES HARD TO PALPATE BUT PRESENT FAINTLY. ENCOURAGING Q2H TURNS BUT PATIENT OFTEN REFUSING. IV ABX INFUSING PER ORDER. WILL CONTINUE TO MONITOR UNTIL REPORT GIVEN TO DAYSHIFT RN.
--- NOTE | 2021-01-14 07:23 | NUR ---
pt laying in bed watching tv, awake, a/ox3, pleasant and cooperative with care, follows commands well, states he has an overall general pain, lungs have insp wheeze to right upper field, clear on left upper, dim in bases, resp even and unlabored, no cough noted, currently on 2 liters 02 via n/c, hrr, tele in place running aflutter per montior, see strip, general edema noted, picc line to lauren, site is clear and patent, infusing ns at tko, 2piv, sites clear and patent, btx4, hypoactive, abd large flat soft nontender, bangura cath draining clear yellow urine, skin has multipe wounds, see chart, skin very frail, moves upper arms well, legs are very weak, kierra, call light in reach.
--- NOTE | 2021-01-14 11:00 | NUR ---
01/14/21- PER CHART REVIEW WITH DR. GONZALEZ, PT HAS NOT KEPT APPT WITH HIM FOR A COUPLE MONTHS. NO PLAN FOR D/C AT THIS TIME. PT AND OT HAVE BEEN ORDERED. PT RECOMMENDING BACK TO SNF AT D/C AND PT IS BEDBOUND. CURRENTLY ON O2- 2L. RECENT ECHO SHOWS WORSENING PHTN. LABS SHOWED POSITIVE BLOOD CULTURES AND IS FOUND TO BE HYPOTENSIVE. -KJW
--- NOTE | 2021-01-14 18:05 | NUR ---
pt has had an uneventful day, watching tv. PT and OT worked with him today, no acute changes this shift. call light in reach.
[2021-01-15 03:54] LABS: BASOPHILS ABSOLUTE AUTO 0.02 K/mm3 (0.00-0.23); BASOPHILS PERCENT AUTO 0 % (0-2); EOSINOPHILS ABSOLUTE AUTO 0.44 K/mm3 (0.00-0.68); EOSINOPHILS PERCENT AUTO 8 % (0-6); Hematocrit 30.6 % (37.0-53.0); Hemoglobin 8.6 g/dL (13.5-17.5); IMMATURE GRAN ABSOLUTE AUTO 0.03 K/mm3 (0.00-0.10); IMMATURE GRAN PERCENT AUTO 1 % (0-1); LYMPHOCYTES ABSOLUTE AUTO 0.42 K/mm3 (0.84-5.20); LYMPHOCYTES PERCENT AUTO 8 % (21-46); MONOCYTES ABSOLUTE AUTO 0.68 K/mm3 (0.16-1.47); MONOCYTES PERCENT AUTO 12 % (4-13); Mean Corpuscular HGB 22.8 pg (26.0-34.0); Mean Corpuscular HGB Conc 28.1 g/dL (31.5-36.5); Mean Corpuscular Volume 81 fL (80-100); Mean Platelet Volume 9.6 fL (9.1-12.4); NEUTROPHILS ABSOLUTE AUTO 3.94 K/mm3 (1.96-9.15); NEUTROPHILS PERCENT AUTO 71 % (41-73); Platelet Count 162 K/mm3 (150-400); RDW Coefficient Variation 19.4 % (11.7-14.2); RDW Standard Deviation 56.6 fL (35.1-46.3); Red Blood Cell Count 3.77 M/mm3 (4.30-5.90); White Blood Cell Count 5.53 K/mm3 (4.00-11.30)
[2021-01-15 04:20] LABS: Alanine Aminotransfer (ALT/SGP 12 U/L (12-78); Albumin, Blood 2.8 g/dL (3.4-5.0); Albumin/Globulin Ratio 0.6 (0.8-1.8); Alk Phos 138 U/L (50-136); Anion Gap 2 mmol/L (6-16); Aspartate Aminotrans (AST/SGOT 18 U/L (12-37); Bilirubin, Total 1.4 mg/dL (0.1-1.0); Blood Urea Nitrogen 31 mg/dL (8-24); Bun/Creatinine Ratio 30.1 (12.0-20.0); CO2, Blood 37 mmol/L (21-32); Calcium, Blood 8.6 mg/dL (8.5-10.1); Chloride, Blood 94 mmol/L (98-108); Creatinine, Blood 1.03 mg/dL (0.60-1.20); Globulin, Blood 4.9 g/dL (2.2-4.0); Glomerular Filtration Rate >60 (60-); Glucose, Blood 73 mg/dL (70-99); Potassium, Blood 3.9 mmol/L (3.5-5.5); Sodium, Blood 133 mmol/L (136-145); Total Protein, Blood 7.7 g/dL (6.4-8.2); Vancomycin, Random 19.9 ug/mL
--- NOTE | 2021-01-15 05:21 | NUR ---
VSS T/O NOC. PT RESISTANT TO REPOSITIONING. UNABLE TO TOLERATE PILLOWS AROUND HIS FEET WITHOUT BECOMING EXCESSIVELY PAINFUL. REQUESTING PO PAIN MEDICATION EVERY 8 HOURS. ATTEMPTED CPAP BUT WAS ONLY ABLE TO LEAVE ON FOR A TOTAL OF 3 HOURS. PLEASANT AND COOPERATIVE
--- NOTE | 2021-01-15 08:00 | NUR ---
pt laying in bed watching tv, a/ox3, pleasant and cooperative with care, follows commands well, lungs have occ exp wheeze t/o, resp even and unlabored, no cough noted, currently on 2 liters 02 via n/c, hrr, tele in place running aflutter per monitor, see strip, edema noted to left arm, b/l le, picc line to lauren site is clear and patent, btx4, abd large soft nontender, bangura in place draining clear yellow urine, skin has very dark dry flakey skin to b/l le up to thighs, back of thighs are very discolored but not the dry flakey skin, but has several open areas to buttocks, mepilex dressings placed, can wiggle feet, very weak, any movement seems to tire him, has bora wraps to b/l le for compression, no open areas to lower legs, kierra call light in reach.
--- NOTE | 2021-01-15 13:16 | NUR ---
Spiritual care visit conducted. Patient is sitting up in bed and alert. 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 Patient explains about the fact that his recent medical events took a short time to occur but will take months to recover from. We talk about his goals and concerns. I normalize his experience and provide therapeutic listening and prayer. Patient responds well and shows signs of an elevated mood. Spiritual care will continue to remain available to patient and family.
--- NOTE | 2021-01-15 14:27 | NUR ---
01/15/21- per chart review with Dr. Beckett, pt is improving and will be moved up to the medical floor. Pt could potentially be discharged tomorrow back to [facility] where pt has previous lived. -rebekah
--- NOTE | 2021-01-15 17:52 | NUR ---
pt had a bed bath, soaked legs with warm soapy water and cleansed them, then applied heavy lotion on dry areas, and wrapped with clean bora wraps, new mepilex applied to buttocks after cleansing, turned pt on his side as much as he can tolerate. call light in reach.
--- NOTE | 2021-01-15 21:33 | NUR ---
TRANSFER NOTE HANDOFF RECEIVED FROM PCU NURSE. PT ARRIVED TO FLOOR VIA GURNEY W/PERSONAL POSSESSIONS. PT ORIENTED TO UNIT. CALL BUTTON WITHIN REACH. WE WILL BEGIN Q2 TURNS DUE TO SKIN BREAKDOWN AND MOBILITY ISSUES. MY CLINICAL EDUCATION CONSULTANT TOOK THE VITALS, AND I WILL GIVE THE PM MEDICATIONS AND ENTER THE SHIFT ASSESSMENT
--- NOTE | 2021-01-16 04:27 | NUR ---
SHIFT SUMMARY TRANSFERED FROM PCU THIS SHIFT. ADMITTED FOR BLE CELLULITIS/SEPSIS. FOUND TO BE HYPOXIC AND DESATURATING. FULL CODE. HE IS ON HIS BASELINE OF 2 LPM O2 VIA NC. HE COMES FROM [facility]. IV ANTIBIOTICS ARE SCHEDULED. DR VASQUEZ IS PODIATRY CONSULT. CHOUDHARY IN PLACE FOR I&O'S. WE HAVE MADE HIM Q2 TURNS DUE TO SKIN BREAKDOWN RISK. HE IS BEDRIDDEN AND HAS BEEN SO AT [facility] WELL. HE IS NONCOMPLIANT W/CPAP. HE IS ACHS, LOW SS. WE ARE DIURESING HIM, ALBUMIN INFUSIONS ARE SCHEDULED. HE HAS VENOUS STASIS DERMATITIS, BOTH LEGS ARE BANDAGED.
--- NOTE | 2021-01-16 18:52 | NUR ---
SHIFT SUMMARY PT AxOx4 WITH INTERMITTENT CONFUSION/FORGETFULNESS. PT/OT WORKED WITH PATIENT TODAY, CURRENTLY ON BEDREST STILL. PT REPORTED PAIN IN BLE T/O THE DAY. MEDICATED PER EMAR. ORDERED 1500ML/DAY FLUID RESTRICTION. TELE RUNNING AFIB/FLUTTER AT 106. BREATHING WITHOUT DIFFICULTY ON 4L O2. CURRENT PLAN IS TO DC TOMORROW BACK HOME [facility]. VITALS REVIEWED. PT DENIES ANY NEEDS AT THIS TIME. CALL LIGHT IN REACH.
--- NOTE | 2021-01-17 04:10 | NUR ---
SHIFT SUMMARY ADMITTED FOR BILATERAL CELLULITIS OF THE LOWER EXTREMITIES. PT IS A FULL CODE. PLAN FOR DISCHARGE TO [facility] TODAY. MEDICATED FOR PAIN X1 THIS SHIFT. PT RECEIVING IV ABX THIS SHIFT. NO NEW CONCERNS THIS SHIFT.
--- NOTE | 2021-01-17 04:54 | NUR ---
CTA/FRONT DESK REPRESENTATIVE I HAVE ASSESSED THIS PT. I HAVE READ THE FRONT DESK REPRESENTATIVE'S DOCUMENTATION AND I AGREE. THE SHIFT SUMMARY IS IN FRONT DESK REPRESENTATIVE'S NOTES
[2021-01-17 08:28] LABS: BASOPHILS ABSOLUTE AUTO 0.04 K/mm3 (0.00-0.23); BASOPHILS PERCENT AUTO 1 % (0-2); EOSINOPHILS ABSOLUTE AUTO 0.55 K/mm3 (0.00-0.68); EOSINOPHILS PERCENT AUTO 10 % (0-6); Hematocrit 32.2 % (37.0-53.0); Hemoglobin 8.9 g/dL (13.5-17.5); IMMATURE GRAN ABSOLUTE AUTO 0.04 K/mm3 (0.00-0.10); IMMATURE GRAN PERCENT AUTO 1 % (0-1); LYMPHOCYTES PERCENT AUTO 9 % (21-46); MONOCYTES ABSOLUTE AUTO 0.52 K/mm3 (0.16-1.47); MONOCYTES PERCENT AUTO 10 % (4-13); Mean Corpuscular HGB 22.7 pg (26.0-34.0); Mean Corpuscular HGB Conc 27.6 g/dL (31.5-36.5); Mean Corpuscular Volume 82 fL (80-100); Mean Platelet Volume 10.1 fL (9.1-12.4); NEUTROPHILS ABSOLUTE AUTO 3.85 K/mm3 (1.96-9.15); NEUTROPHILS PERCENT AUTO 70 % (41-73); Platelet Count 199 K/mm3 (150-400); RDW Coefficient Variation 19.3 % (11.7-14.2); RDW Standard Deviation 57.1 fL (35.1-46.3); Red Blood Cell Count 3.92 M/mm3 (4.30-5.90)
[2021-01-17 08:49] LABS: Alanine Aminotransfer (ALT/SGP 11 U/L (12-78); Albumin, Blood 3.3 g/dL (3.4-5.0); Albumin/Globulin Ratio 0.7 (0.8-1.8); Alk Phos 135 U/L (50-136); Anion Gap 1 mmol/L (6-16); Aspartate Aminotrans (AST/SGOT 14 U/L (12-37); Blood Urea Nitrogen 37 mg/dL (8-24); Bun/Creatinine Ratio 36.3 (12.0-20.0); CO2, Blood 40 mmol/L (21-32); Calcium, Blood 9.3 mg/dL (8.5-10.1); Chloride, Blood 94 mmol/L (98-108); Creatinine, Blood 1.02 mg/dL (0.60-1.20); Globulin, Blood 4.8 g/dL (2.2-4.0); Glomerular Filtration Rate >60 (60-); Glucose, Blood 83 mg/dL (70-99); Magnesium, Blood 2.1 mg/dL (1.6-2.4); Phosphorus, Blood 3.7 mg/dL (2.5-4.9); Potassium, Blood 4.1 mmol/L (3.5-5.5); Sodium, Blood 135 mmol/L (136-145); Total Protein, Blood 8.1 g/dL (6.4-8.2)
[2021-01-17 14:25] LABS: PO2 Arterial 54.5 mmHg (80-100); pH Blood Arterial 7.44 (7.35-7.45)
--- NOTE | 2021-01-17 14:31 | NUR ---
01/17/21- Per chart review with Dr. Beckett, the original plan was to have him d/c back to [facility] either today or tomorrow. Packet was created and faxed to [place] for review for pt to return. Utilization to work on getting [employer] Authorization for PT/OT, wound care and IV antibiotics until the . Received message from Dr. Beckett, pt needs aggressive diuresing over the weekend. Dr. Real is to consult on the pt. D/C has been postpone until he is medically cleared. During authorization process, it was found that a PT note stated that the pt's baseline was being able to walk short distances. Called and spoke with PT who saw pt today, they reviewed the chart and found the error. PT was going to chart in his note today that the pt has not walked since [place] time. -rebekah
--- NOTE | 2021-01-17 14:37 | NUR ---
Pal Care visit and follow up advanced care planning conversation at request of provider. We have been discussing code status with pt during this admission and pt indicated he would like his daughter's input when we last spoke with Vipin on the weekend. Pt had just had a bath, toileting help etc per RN and PROGRAM HOST. He is agreeable for a visit and conversation. He initially states he wants us to do the best we can for him, at the providers discretion and hesitates to be more concrete. I educated him that providers cannot choose, and most follow his direction re: advanced care planning and advanced resuscitation measures. I explained that sometimes the best that we can do for him is to NOT do CPR in light of his severe comorbidities and risks for resp failure, aspiration pneumonia and anoxic brain injury, in addition to more extreme disability and loss of function, both physically and neurologically. Pt willing to consider this and do some reading that may help him clarify his wishes for himself and generate further conversation/questions for providers to help him with this decision. Booklet, Hard Choices for [place] People" given to Vipin with request that he at least read first chapter on CPR. He is appreciative of the info and requests that I return tomorrow to review with him. Plan for visit for f/u tomorrow. Report given to Dr Beckett on all of the above.
--- NOTE | 2021-01-17 19:49 | NUR ---
SHIFT SUMMARY PT USING CALL LIGHT INCREASINGLY AFTERNOON HAS PROGRESSED. REQUESTING PAIN MEDS FREQUENTLY. GETS SOB WITH ANY TURNING OR REPOSITIONING. O2 HAD BEEN DECREASED TO 2L/M THIS MORNING. AFTER ABG IT WAS INCREASED BACK TO 4L/M DUE TO LOW PO2. SPONGE BATH GIVEN AFTER BM IN BEDPAN. FOLLOWING FLUID RESTRICTION WELL HE CAN. DENIES NAUSEA. PICC DRESSING CHANGED.
--- NOTE | 2021-01-18 04:42 | NUR ---
SHIFT SUMMARY: PATIENT IS A&OX4, VSS, REPORTING CHRONIC PAIN FROM THE WAIST DOWN TO FEET 7-8/10. REPOSITIONING AND PRN OXYCODONE ARE PROVIDING EFFECTIVE PAIN CONTROL. PATIENT WAS MOVE INTO A LIFT ROOM FOR SAFE TRANSFERS TO THE CHAIR.
[2021-01-18 05:34] LABS: BASOPHILS ABSOLUTE AUTO 0.03 K/mm3 (0.00-0.23); BASOPHILS PERCENT AUTO 1 % (0-2); EOSINOPHILS ABSOLUTE AUTO 0.43 K/mm3 (0.00-0.68); EOSINOPHILS PERCENT AUTO 9 % (0-6); Hematocrit 31.1 % (37.0-53.0); Hemoglobin 8.5 g/dL (13.5-17.5); IMMATURE GRAN ABSOLUTE AUTO 0.04 K/mm3 (0.00-0.10); IMMATURE GRAN PERCENT AUTO 1 % (0-1); LYMPHOCYTES ABSOLUTE AUTO 0.55 K/mm3 (0.84-5.20); LYMPHOCYTES PERCENT AUTO 11 % (21-46); MONOCYTES ABSOLUTE AUTO 0.58 K/mm3 (0.16-1.47); MONOCYTES PERCENT AUTO 12 % (4-13); Mean Corpuscular HGB 22.5 pg (26.0-34.0); Mean Corpuscular HGB Conc 27.3 g/dL (31.5-36.5); Mean Corpuscular Volume 83 fL (80-100); NEUTROPHILS ABSOLUTE AUTO 3.28 K/mm3 (1.96-9.15); NEUTROPHILS PERCENT AUTO 67 % (41-73); Platelet Count 199 K/mm3 (150-400); RDW Coefficient Variation 19.2 % (11.7-14.2); RDW Standard Deviation 57.6 fL (35.1-46.3); Red Blood Cell Count 3.77 M/mm3 (4.30-5.90); White Blood Cell Count 4.91 K/mm3 (4.00-11.30)
[2021-01-18 05:51] LABS: Albumin, Blood 3.3 g/dL (3.4-5.0); Anion Gap 1 mmol/L (6-16); Blood Urea Nitrogen 44 mg/dL (8-24); Bun/Creatinine Ratio 36.4 (12.0-20.0); CO2, Blood 39 mmol/L (21-32); Chloride, Blood 94 mmol/L (98-108); Creatinine, Blood 1.21 mg/dL (0.60-1.20); Glomerular Filtration Rate >60 (60-); Glucose, Blood 77 mg/dL (70-99); Magnesium, Blood 2.3 mg/dL (1.6-2.4); Phosphorus, Blood 4.4 mg/dL (2.5-4.9); Potassium, Blood 4.2 mmol/L (3.5-5.5); Sodium, Blood 134 mmol/L (136-145)
--- NOTE | 2021-01-18 12:53 | NUR ---
1200 - Attempted to make follow up visit. Pt askes that I return this afternoon. Will plan to see pt. later today.
--- NOTE | 2021-01-18 15:19 | NUR ---
01/18/21- per chart review with Dr. Evans, pt is not medically stable to d/c due to needing to continue being diuresed. Per , pt could potentially be stable to d/c over the weekend back to [facility]. Met with pt and reviewed RENNY letter, pt states that he will be returning to [facility] and will need a ride back to the facility. Pt gets his medication from the pharmacy that [facility] uses, and they are able to help with any care needs. Pt states that he is going to need a geriatic wheelchair. SNF packet has been completed, faxed and reviewed. [facility] is not able to take the pt over the weekend and he can d/c back to them on Thursday. Updated Dr. Evans, who expressed understanding. -rebekah
--- NOTE | 2021-01-18 16:17 | NUR ---
Attempted follow up visit again. Pt is sound asleep in recliner. He did not wake to voice or gentle touch. Will try once more today or tomorrow if today is not possible.
--- NOTE | 2021-01-18 19:00 | NUR ---
SHIFT SUMMARY ALDO COMPLAINED OF BLE PAIN FOR WHICH OXY HELPED. UP TO CHAIR WITH LIFT. INCONT STOOL, CHOUDHARY DRAINING WELL. CONTINUING 24 HR URINE COLLECTION. KEENAN WRAPS ON BLE C/D/I, PRN OXY GIVEN. STILL ON 4L OXYGEN, STILL HAS EXCORIATED BOTTOM--CALAZIME APPLIED, MEPILEX PUT ON L BUTTOCK OPEN AREA (FROM MOISTURE, NOT PRESSURE WOUND). CALL LIGHT IN REACH, [facility]
[2021-01-18 22:57] LABS: Protein, Urine Quantitative 7.6 mg/dL (0.0-11.9)
--- NOTE | 2021-01-19 04:55 | NUR ---
MARINE DIESEL TECHNICIAN SUMMARY NO ACUTE CHANGES THIS SHIFT. PT AAOX4 AND PLEASANT. ABLE TO MAKE NEEDS KNOWN. LIFT FOR TRANSFERS FROM RECLINER TO BED. MEDICATED FOR PAIN WITH OXYCODONE PRN PER EMAR. PT REPORTS SOME TENDERNESS IN BLE. DRESSINGS AND KEENAN WRAP ON BLE C/D/I. VSS, WILL CONTINUE TO MONITOR.
[2021-01-19 05:46] LABS: Hematocrit 31.4 % (37.0-53.0); Hemoglobin 8.6 g/dL (13.5-17.5)
[2021-01-19 06:14] LABS: Albumin, Blood 3.5 g/dL (3.4-5.0); Anion Gap 2 mmol/L (6-16); Blood Urea Nitrogen 53 mg/dL (8-24); Bun/Creatinine Ratio 41.4 (12.0-20.0); CO2, Blood 40 mmol/L (21-32); Calcium, Blood 9.1 mg/dL (8.5-10.1); Chloride, Blood 92 mmol/L (98-108); Creatinine, Blood 1.28 mg/dL (0.60-1.20); Glomerular Filtration Rate >60 (60-); Glucose, Blood 75 mg/dL (70-99); Magnesium, Blood 2.4 mg/dL (1.6-2.4); Phosphorus, Blood 4.6 mg/dL (2.5-4.9); Potassium, Blood 4.3 mmol/L (3.5-5.5); Sodium, Blood 134 mmol/L (136-145)
--- NOTE | 2021-01-19 18:35 | NUR ---
SHIFT SUMMARY ALDO GOT UP TO CHAIR WITH LIFT FOR A FEW HOURS TODAY. PT WORKED WITH HIM. COMPLAINED OF BLE PAIN, GOT OXY PRN WHICH HELPED. HAD BM THIS SHIFT, INCONTINENT STOOL. EXCORIATED BOTTOM, CALAZIME APPLIED. CHOUDHARY DRAINING WELL, FORESKIN ULCERATION, DR ADORNO AWARE. LEGS LOTIONED AND RE-WRAPPED. FLUID RESTRICTION MAINTAINED. CALL LIGHT IN REACH, [facility]
--- NOTE | 2021-01-19 19:01 | NUR ---
Spent time with pt today, discussed his current code status in depth. He was willing to discuss after reading the "Hard Choices for [place] People" book left with him by my colleague. He stated he would like to remain a full code. He states he understands very well how low the chances of survival a resucitation would be for him. However, he states he has "3 little grandbabies that are worth trying for". I asked him who would be his next of kin if he were to be resucitated and placed on a vent? He states it would be his daughter, and that she would have to make that decision for him if the time came, and her were a "vegetable" as he called it. We discussed filling out a living will, as that would address these things in his own words, instead of leaving it for his daughter. He states he has one, it "just isn't filled out yet".
--- NOTE | 2021-01-20 05:12 | NUR ---
SHIFT SUMMARY PT HAS SLEPT OFF AND ON T/O NIGHT. PT USES CALL LIGHT FREQUENTLY, MOST TIMES WHEN HE USES CALL LIGHT IT IS TO ASK STAFF TO MOVE THE HEAD OF HIS BED UP OR DOWN. PT HAS A HARD TIME GETTING COMFORTABLE IN THE BED. PT REPOSITONED T/O SHIFT. PT A/OX4, BUT FORGETUL. FLUID RESTRICTION IN PLACE, HE HAS MAXED OUT FOR THE SHIFT. PT MOSTLY COMPLIANT T/O SHIFT BUT AT ONE POINT DURING THE NIGHT PT DEMANED WATER FROM STAFF. WHEN HIS MOUTH BECAME DRY HE ASKED FOR JUST A SIP. HE STATES THAT IF HE DEMANDS IT HE CAN HAVE IT AND THAT WE CANNOT REFUSE IT. HE STATES THAT HE HAS DONE SO IN THE PAST. PT EDUCATED ON THE IMPORTANCE OF ADHERING TO HIS FLUID RESTRICTION, HOWEVER PT CONTINUED TO INSIST ON HAVING SOME WATER. PT GIVEN A SMALL BIT OF WATER TO WET HIS MOUTH. KEENAN WRAPS IN PLACE FOR DIURESIS OF BLE. CHOUDHARY IN PLACE PATENT AND DRAINING. VITALS STABLE AND UNCHANGED FROM PRIOR READINGS. BED IN LOWEST POSITION, CALL LIGHT WITHIN REACH.
[2021-01-20 05:39] LABS: BASOPHILS ABSOLUTE AUTO 0.02 K/mm3 (0.00-0.23); BASOPHILS PERCENT AUTO 0 % (0-2); EOSINOPHILS ABSOLUTE AUTO 0.44 K/mm3 (0.00-0.68); EOSINOPHILS PERCENT AUTO 9 % (0-6); Hematocrit 30.6 % (37.0-53.0); Hemoglobin 8.6 g/dL (13.5-17.5); IMMATURE GRAN ABSOLUTE AUTO 0.05 K/mm3 (0.00-0.10); IMMATURE GRAN PERCENT AUTO 1 % (0-1); LYMPHOCYTES ABSOLUTE AUTO 0.45 K/mm3 (0.84-5.20); LYMPHOCYTES PERCENT AUTO 10 % (21-46); MONOCYTES ABSOLUTE AUTO 0.65 K/mm3 (0.16-1.47); MONOCYTES PERCENT AUTO 14 % (4-13); Mean Corpuscular HGB 22.8 pg (26.0-34.0); Mean Corpuscular HGB Conc 28.1 g/dL (31.5-36.5); Mean Corpuscular Volume 81 fL (80-100); Mean Platelet Volume 9.8 fL (9.1-12.4); NEUTROPHILS ABSOLUTE AUTO 3.15 K/mm3 (1.96-9.15); NEUTROPHILS PERCENT AUTO 66 % (41-73); Platelet Count 199 K/mm3 (150-400); RDW Coefficient Variation 19.4 % (11.7-14.2); Red Blood Cell Count 3.77 M/mm3 (4.30-5.90); White Blood Cell Count 4.76 K/mm3 (4.00-11.30)
[2021-01-20 05:58] LABS: Albumin, Blood 3.6 g/dL (3.4-5.0); Anion Gap 1 mmol/L (6-16); Blood Urea Nitrogen 62 mg/dL (8-24); CO2, Blood 39 mmol/L (21-32); Chloride, Blood 93 mmol/L (98-108); Creatinine, Blood 1.32 mg/dL (0.60-1.20); Glomerular Filtration Rate 59 (60-); Glucose, Blood 73 mg/dL (70-99); Magnesium, Blood 2.5 mg/dL (1.6-2.4); Phosphorus, Blood 4.4 mg/dL (2.5-4.9); Potassium, Blood 4.4 mmol/L (3.5-5.5); Sodium, Blood 133 mmol/L (136-145)
--- NOTE | 2021-01-20 16:58 | NUR ---
SHIFT SUMMARY- PT IS A/O, PLESANT AND COOPERATIVE. HE IS EATING AND DRINKING WELL. HIS CHOUDHARY IS PATIENT AND DRAINING. HE SLEPT INTERMITENTLY THROUGHTOUT THIS SHIFT. HE RECIEVED A BED BATH AND HAD HIS LEG WRAPS REMOVED, LOTION APPLIED AND WRAPS REPLACED. HE IS RECIEVING PRN PAIN MEDICATION. HIS BED IS IN THE LOW POSITION AND CALL LIGHT IS WITHIN REACH.
[2021-01-20 20:14] LABS: PCO2 Arterial 65.9 mmHg (35-45); PO2 Arterial 88.9 mmHg (80-100); pH Blood Arterial 7.38 (7.35-7.45)
--- NOTE | 2021-01-20 23:16 | NUR ---
INCREASED O2 NEEDS AROUND 1929 PT BEGAN DESATTING ON 4L O2 WHICH IS HIS BASELINE O2. O2 SATS FLUCTUATED BETWEEN 77-85%. PT O2 INCREASED TO 5L BUT O2 SATS REMAINED LOW. PT DID NOT APPEAR TO BE IN RESPIRATORY DISTRESS AND DENIED SOB. LUNG SOUNDS UNCHANGED. PT HAS BEEN REFUSING HIS CPAP FOR THE LAST FEW NIGHTS, AND POSSIBLY RETAINING CO2. RT CALLED TO ASSESS PT. THEY RECOMMEND AN ABG AND BIPAP. DAVID JEFF NP CALLED AND NOTIFIED OF PT DECREASED SATS AND INCREASED O2 NEEDS. ABG WAS ORDERED, AND DAVID STATES TO PLACE BIPAP PER RT RECOMMENDATIONS. ABG RESULTS RECEIVED AROUND 1999, CO2 IS ELEVATED. RT PLACED BIPAP, PT IS REFUSING TO KEEP ON DESPITE EDUCATION ON WHY HE NEEDS IT, HE CONTINIUALLY ASK STAFF TO REMOVE IT AND PLACE NASAL CANNULA. HIS OXYGEN SATURATION HAS IMPROVED AND IS BACK UP IN THE 90'S ON 4L NC. HOWEVER PT RETAINS WHEN SLEEPING. PT WEARING NASAL CANNULA AT THIS TIME, HE STATES THAT HE WILL WEAR BIPAP WHEN SLEEPING, AND WILL LET STAFF KNOW WHEN HE IS READY ALVA HAVE IT PLACED AGAIN. WILL CONTINUE MONITORING.
--- NOTE | 2021-01-21 00:45 | NUR ---
BiPap: Pt wanted BiPap mask off and stated that RT said he could have it off for a couple hours. I called RT and they said it was ok to take off. I put nasal canual back on and explained that I would bed back at 0200 to put mask back on which would be a hour and a half. Pt said OK.
--- NOTE | 2021-01-21 04:41 | NUR ---
SHIFT SUMMARY ABG DONE THIS SHIFT AFTER SATS BEGIN TO DECLINE ON PT BASELINE 4L O2. ABG SHOWED PT TO BE RETAINING CO2. PT HAS BEEN REFUSING HIS CPAP THIS HOSPITLIZATION. BIPAP WAS ORDERED. PT HAD A DIFFICULT TIME KEEPING BIPAP ON AT THE START OF THE SHIFT, BUT WITH CONTINUED EDUCATION PT HAS BECOME MORE COMFORTABLE WITH WEARING. SATS HAVE MAINTAINED IN THE 90'S ON BIPAP. KEENAN WRAP IN PLACE TO BLE. PT MEDICATED FOR PAIN PRN PER ORDERS. PT USES CALL LIGHT FREQUENTLY TO ASK STAFF TO LOWER OR RAISE THE HEAD OF THE BED. PT INSTRUCTED ON WHERE THE BUTTONS WERE ON THE BED SO THAT HE CAN ADJUST HIMSELF, BUT PT CONTINUES TO USE CALL LIGHT TO REQUEST HELP WITH BED. PT COULD BENEFIT FROM BARIATRIC BED BUT NONE AVALIBLE AT THIS TIME. ICE SKATING TEACHER NOTIFIED, AND WILL PASS ALONG TO DAYSHIFT FOR FOLLOW UP. PT HAS SLEPT MOST OF THE NIGHT. VITALS STABLE. BED IN LOWEST POSITION, CALL LIGHT WITHIN REACH.
[2021-01-21 05:03] LABS: BASOPHILS ABSOLUTE AUTO 0.03 K/mm3 (0.00-0.23); BASOPHILS PERCENT AUTO 1 % (0-2); EOSINOPHILS ABSOLUTE AUTO 0.46 K/mm3 (0.00-0.68); EOSINOPHILS PERCENT AUTO 9 % (0-6); Hematocrit 29.9 % (37.0-53.0); Hemoglobin 8.5 g/dL (13.5-17.5); IMMATURE GRAN ABSOLUTE AUTO 0.03 K/mm3 (0.00-0.10); IMMATURE GRAN PERCENT AUTO 1 % (0-1); LYMPHOCYTES PERCENT AUTO 10 % (21-46); MONOCYTES ABSOLUTE AUTO 0.63 K/mm3 (0.16-1.47); MONOCYTES PERCENT AUTO 13 % (4-13); Mean Corpuscular HGB Conc 28.4 g/dL (31.5-36.5); Mean Corpuscular Volume 81 fL (80-100); Mean Platelet Volume 9.3 fL (9.1-12.4); NEUTROPHILS PERCENT AUTO 67 % (41-73); Platelet Count 189 K/mm3 (150-400); RDW Coefficient Variation 19.3 % (11.7-14.2); RDW Standard Deviation 56.2 fL (35.1-46.3); Red Blood Cell Count 3.69 M/mm3 (4.30-5.90); White Blood Cell Count 4.95 K/mm3 (4.00-11.30)
[2021-01-21 05:29] LABS: Albumin, Blood 3.4 g/dL (3.4-5.0); Anion Gap 2 mmol/L (6-16); Blood Urea Nitrogen 62 mg/dL (8-24); Bun/Creatinine Ratio 50.8 (12.0-20.0); CO2, Blood 39 mmol/L (21-32); Calcium, Blood 9.1 mg/dL (8.5-10.1); Chloride, Blood 93 mmol/L (98-108); Creatinine, Blood 1.22 mg/dL (0.60-1.20); Glomerular Filtration Rate >60 (60-); Glucose, Blood 76 mg/dL (70-99); Magnesium, Blood 2.7 mg/dL (1.6-2.4); Phosphorus, Blood 3.8 mg/dL (2.5-4.9); Potassium, Blood 4.1 mmol/L (3.5-5.5); Sodium, Blood 134 mmol/L (136-145)
[2021-01-21] MEDS ORDERED: PREG25 PO (11:45)
[2021-01-21] MEDS ORDERED: CLOTRIMAZOLE AF1524 TOP (12:35)
[2021-01-21 12:59] LABS: SARS-Cov-2 (COVID-19) PCR, MMC NEGATIVE (NEGATIVE)
--- NOTE | 2021-01-21 15:44 | NUR ---
01/21/21- PER CHART REVIEW WITH DR. ADORNO, PT IS STABLE TO D/C BACK TO [facility]. BIPAP WAS ORDERED THROUGH [facility] TO BE DELIVERED TO PT ROOM PRIOR TO D/C. STAT COVID WAS ORDERED AND TRANSPORT SET UP FOR PT. DR. ADORNO WILL HAVE PICC LINE REMOVED PRIOR TO D/C. -KAYLI
--- NOTE | 2021-01-21 17:34 | NUR ---
DISCHARGE SUMMARY PT A/O X3 BUT FORGETFUL AT TIMES. PT DC'D TO [facility] TODAY. CHOUDHARY DC'D THIS AFTERNOON AND PT BEGAN BLEEDING OUT OF HIS URETHRA. PRESSURE HELD AND PHYSICIAN NOTIFIED. PICC LINE DC'D WELL. KEENAN BANDAGES TO BLE WITH WEEPING OF LEGS NOTED. BIPAP DEVICE ORDERED FOR DISCHARGE DUE TO THE PT RETAINING. CO2. VSS. PT WENT BY YESSICA TO [facility]. REPORT GIVEN [facility] GARCÍA.
== END 2021-01-21 17:08 | DRG 871 ==
LOC: ER 14:05 → MEDS 17:26 → ICUW 17:26 → PCU 01-13 14:47 → MEDS 01-15 21:01 → ENPENDDIS 01-21 11:09 → MEDS 01-21 17:08
PROVIDERS: Emergency Medicine; Family Medicine; Hospitalist; Internal Medicine Nephrology; Nurse Practitioner Acute Care; Pharmacist; ADMIT Internal Medicine
PROC: 3E043XZ Introduction of Vasopressor into Central Vein, Percutaneous Approach (ICD-10-PCS; principal; 2021-01-10)
PROC: 02HV33Z Insertion of Infusion Device into Superior Vena Cava, Percutaneous Approach (ICD-10-PCS; 2021-01-11)
DX: A41.9 Sepsis, unspecified organism (principal); I50.33 Acute on chronic diastolic (congestive) heart failure; R65.21 Severe sepsis with septic shock; G92 Toxic encephalopathy; J96.01 Acute respiratory failure with hypoxia; I13.0 Hypertensive heart and chronic kidney disease with heart failure and stage 1 through stage 4 chronic kidney disease, or unspecified chronic kidney disease; E87.2 Acidosis; L03.116 Cellulitis of left lower limb; I48.20 Chronic atrial fibrillation, unspecified; E87.3 Alkalosis; E87.1 Hypo-osmolality and hyponatremia; N17.9 Acute kidney failure, unspecified; L03.115 Cellulitis of right lower limb; E66.2 Morbid (severe) obesity with alveolar hypoventilation; Z68.43 Body mass index [BMI] 50.0-59.9, adult; J44.9 Chronic obstructive pulmonary disease, unspecified; M19.90 Unspecified osteoarthritis, unspecified site; E86.9 Volume depletion, unspecified; F41.8 Other specified anxiety disorders; Z20.822 Contact with and (suspected) exposure to COVID-19; I87.2 Venous insufficiency (chronic) (peripheral); E78.5 Hyperlipidemia, unspecified; E11.22 Type 2 diabetes mellitus with diabetic chronic kidney disease; N18.30 Chronic kidney disease, stage 3 unspecified; E86.0 Dehydration; I27.20 Pulmonary hypertension, unspecified; E11.51 Type 2 diabetes mellitus with diabetic peripheral angiopathy without gangrene; E11.621 Type 2 diabetes mellitus with foot ulcer; E11.42 Type 2 diabetes mellitus with diabetic polyneuropathy; L97.529 Non-pressure chronic ulcer of other part of left foot with unspecified severity; L97.519 Non-pressure chronic ulcer of other part of right foot with unspecified severity; E88.09 Other disorders of plasma-protein metabolism, not elsewhere classified; D63.1 Anemia in chronic kidney disease; N47.1 Phimosis; N48.1 Balanitis; G89.4 Chronic pain syndrome; E05.90 Thyrotoxicosis, unspecified without thyrotoxic crisis or storm; B35.1 Tinea unguium; L60.2 Onychogryphosis; F32.9 Major depressive disorder, single episode, unspecified; Z89.422 Acquired absence of other left toe(s); Z98.890 Other specified postprocedural states; Z87.891 Personal history of nicotine dependence; Z99.81 Dependence on supplemental oxygen; Z79.01 Long term (current) use of anticoagulants; Z79.82 Long term (current) use of aspirin; Z79.899 Other long term (current) drug therapy; Z91.19 Patient's noncompliance with other medical treatment and regimen; Z88.1 Allergy status to other antibiotic agents
CPT/HCPCS: 36415; 36569; 36600; 51702; 70450; 71045; 71260; 80047; 80048; 80053; 80069; 80202; 81001; 81050; 82803; 82947; 83036; 83605; 83735; 83880; 84100; 84145; 84156; 84443; 84484; 85014; 85018; 85025; 85610; 85651; 85730; 86140; 87040; 93005; 93010; 94660; 94762; 96365-59; 96375-59; 97110; 97162; 97166; 97530-CQ; 99285-25; A9270; C1751; C8929; G0480; J0295; J0881; J1940; J2543; J3010; J3370; J7030; J7050; J7060; J7120; P9046; Q9957; Q9967; U0004

== ENCOUNTER → 2021-02-19 | Outpatient (CLI) | payer OTHER ==
[~2021-02-19] MED LIST changes: +Acetaminophen325 M1 PO; +Aspirin EC81 MG PO; +BISA10S PR; +BUMETANIDE2 M2 PO; +CLOTRIMAZOLE AF1524 TOP; +Fleet Enema132 ML PR; +METO2.5 PO; +NEURONTIN300 MG PO; +OXYC5; +PANTOPRAZOLE SO40 M2 PO; +PREG25 PO; +SPIRONOLACTONE25 MG PO; +TAMSULOSIN HCL0.4 M1 PO
[2021-02-19 14:14] LABS: Albumin, Blood 3.1 g/dL (3.4-5.0); Anion Gap 4 mmol/L (6-16); Blood Urea Nitrogen 34 mg/dL (8-24); Bun/Creatinine Ratio 30.9 (12.0-20.0); CO2, Blood 35 mmol/L (21-32); Calcium, Blood 9.6 mg/dL (8.5-10.1); Chloride, Blood 96 mmol/L (98-108); Glomerular Filtration Rate >60 (60-); Glucose, Blood 93 mg/dL (70-99); Phosphorus, Blood 3.8 mg/dL (2.5-4.9); Sodium, Blood 135 mmol/L (136-145)
== END | disposition home or self-care (01) ==
LOC: EDSTATUS 10:30 → LAB RH 12:39
PROVIDERS: Hospitalist
DX: N17.8 Other acute kidney failure (principal)
CPT/HCPCS: 80069; 85018

== ENCOUNTER → 2021-03-12 | Outpatient (CLI) | payer OTHER ==
[~2021-03-12] MED LIST changes: +LACT PO
[2021-03-12 10:52] LABS: Albumin, Blood 2.7 g/dL (3.4-5.0); Anion Gap 3 mmol/L (6-16); Blood Urea Nitrogen 34 mg/dL (8-24); Bun/Creatinine Ratio 38.4 (12.0-20.0); CO2, Blood 35 mmol/L (21-32); Calcium, Blood 9.2 mg/dL (8.5-10.1); Chloride, Blood 98 mmol/L (98-108); Creatinine, Blood 0.89 mg/dL (0.60-1.20); Glomerular Filtration Rate >60 (60-); Glucose, Blood 121 mg/dL (70-99); Phosphorus, Blood 2.6 mg/dL (2.5-4.9); Potassium, Blood 3.9 mmol/L (3.5-5.5); Sodium, Blood 136 mmol/L (136-145)
== END ==
LOC: EDSTATUS 09:56 → LAB RH 10:00
PROVIDERS: Internal Medicine Nephrology
DX: N17.8 Other acute kidney failure (principal); I10 Essential (primary) hypertension
CPT/HCPCS: 80069; 85018

== ENCOUNTER 2021-04-12 20:34 | Inpatient (IN) | payer MEDICARE, OTHER ==
[~2021-04-12] VITALS: Ht 175.3 cm; Wt 120.7 kg
[~2021-04-12 20:34] MED LIST changes: -LACT PO
[2021-04-12 22:07] LABS: BASOPHILS ABSOLUTE AUTO 0.04 K/mm3 (0.00-0.23); BASOPHILS PERCENT AUTO 1 % (0-2); EOSINOPHILS ABSOLUTE AUTO 1.68 K/mm3 (0.00-0.68); EOSINOPHILS PERCENT AUTO 22 % (0-6); Hematocrit 48.1 % (37.0-53.0); Hemoglobin 14.1 g/dL (13.5-17.5); IMMATURE GRAN ABSOLUTE AUTO 0.02 K/mm3 (0.00-0.10); IMMATURE GRAN PERCENT AUTO 0 % (0-1); LYMPHOCYTES ABSOLUTE AUTO 0.88 K/mm3 (0.84-5.20); LYMPHOCYTES PERCENT AUTO 11 % (21-46); MONOCYTES ABSOLUTE AUTO 0.87 K/mm3 (0.16-1.47); MONOCYTES PERCENT AUTO 11 % (4-13); Mean Corpuscular HGB 25.5 pg (26.0-34.0); Mean Corpuscular HGB Conc 29.3 g/dL (31.5-36.5); Mean Corpuscular Volume 87 fL (80-100); Mean Platelet Volume 9.1 fL (9.1-12.4); NEUTROPHILS ABSOLUTE AUTO 4.27 K/mm3 (1.96-9.15); NEUTROPHILS PERCENT AUTO 55 % (41-73); Platelet Count 260 K/mm3 (150-400); RDW Coefficient Variation 19.9 % (11.7-14.2); RDW Standard Deviation 63.7 fL (35.1-46.3); Red Blood Cell Count 5.53 M/mm3 (4.30-5.90); White Blood Cell Count 7.76 K/mm3 (4.00-11.30)
[2021-04-12 22:29] LABS: Alanine Aminotransfer (ALT/SGP 33 U/L (12-78); Albumin, Blood 2.7 g/dL (3.4-5.0); Albumin/Globulin Ratio 0.5 (0.8-1.8); Alk Phos 236 U/L (50-136); Anion Gap 5 mmol/L (6-16); Aspartate Aminotrans (AST/SGOT 35 U/L (12-37); Bilirubin, Total 0.5 mg/dL (0.1-1.0); Blood Urea Nitrogen 33 mg/dL (8-24); CO2, Blood 33 mmol/L (21-32); Chloride, Blood 98 mmol/L (98-108); Creatinine, Blood 1.03 mg/dL (0.60-1.20); Globulin, Blood 5.8 g/dL (2.2-4.0); Glomerular Filtration Rate >60 (60-); Glucose, Blood 121 mg/dL (70-99); Potassium, Blood 4.4 mmol/L (3.5-5.5); Sodium, Blood 136 mmol/L (136-145); Total Protein, Blood 8.5 g/dL (6.4-8.2)
[2021-04-13 04:27] LABS: Hematocrit 44.8 % (37.0-53.0); Hemoglobin 13.1 g/dL (13.5-17.5); Mean Corpuscular HGB 25.2 pg (26.0-34.0); Mean Corpuscular HGB Conc 29.2 g/dL (31.5-36.5); Mean Corpuscular Volume 86 fL (80-100); Mean Platelet Volume 8.9 fL (9.1-12.4); Platelet Count 228 K/mm3 (150-400); RDW Coefficient Variation 20.6 % (11.7-14.2); RDW Standard Deviation 63.3 fL (35.1-46.3); White Blood Cell Count 7.03 K/mm3 (4.00-11.30)
[2021-04-13 04:44] LABS: Anion Gap 3 mmol/L (6-16); Blood Urea Nitrogen 34 mg/dL (8-24); Bun/Creatinine Ratio 32.1 (12.0-20.0); CO2, Blood 34 mmol/L (21-32); Calcium, Blood 8.9 mg/dL (8.5-10.1); Chloride, Blood 99 mmol/L (98-108); Creatinine, Blood 1.06 mg/dL (0.60-1.20); Glomerular Filtration Rate >60 (60-); Glucose, Blood 75 mg/dL (70-99); Potassium, Blood 4.3 mmol/L (3.5-5.5); Sodium, Blood 136 mmol/L (136-145)
--- NOTE | 2021-04-13 17:36 | NUR ---
SHIFT SUMMARY PT AOX3/4. BLE PAINFUL AND MEDICATED PER EMAR. PODIATRY CONSULT LEFT A MESSAGE TO DR VASQUEZ TODAY AND ALSO TRIED TO CALL THE WOUND CLINIC AND LEFT A MESSAGE WELL. PT STILL ON O2 FOR COPD. DENIES CP; BED IS IN THE LOWEST POSITION AND CALL LIGHT WITHIN REACH
[2021-04-14 04:26] LABS: BASOPHILS ABSOLUTE AUTO 0.07 K/mm3 (0.00-0.23); BASOPHILS PERCENT AUTO 1 % (0-2); EOSINOPHILS ABSOLUTE AUTO 1.51 K/mm3 (0.00-0.68); EOSINOPHILS PERCENT AUTO 22 % (0-6); Hematocrit 43.3 % (37.0-53.0); Hemoglobin 12.7 g/dL (13.5-17.5); IMMATURE GRAN ABSOLUTE AUTO 0.02 K/mm3 (0.00-0.10); IMMATURE GRAN PERCENT AUTO 0 % (0-1); LYMPHOCYTES ABSOLUTE AUTO 0.84 K/mm3 (0.84-5.20); LYMPHOCYTES PERCENT AUTO 12 % (21-46); MONOCYTES ABSOLUTE AUTO 0.82 K/mm3 (0.16-1.47); MONOCYTES PERCENT AUTO 12 % (4-13); Mean Corpuscular HGB 25.6 pg (26.0-34.0); Mean Corpuscular HGB Conc 29.3 g/dL (31.5-36.5); Mean Corpuscular Volume 87 fL (80-100); NEUTROPHILS ABSOLUTE AUTO 3.56 K/mm3 (1.96-9.15); NEUTROPHILS PERCENT AUTO 52 % (41-73); Platelet Count 223 K/mm3 (150-400); RDW Coefficient Variation 19.7 % (11.7-14.2); RDW Standard Deviation 62.7 fL (35.1-46.3); Red Blood Cell Count 4.97 M/mm3 (4.30-5.90); White Blood Cell Count 6.82 K/mm3 (4.00-11.30)
[2021-04-14 04:53] LABS: Anion Gap 3 mmol/L (6-16); Blood Urea Nitrogen 41 mg/dL (8-24); Bun/Creatinine Ratio 35.7 (12.0-20.0); CO2, Blood 34 mmol/L (21-32); Chloride, Blood 97 mmol/L (98-108); Creatinine, Blood 1.15 mg/dL (0.60-1.20); Glomerular Filtration Rate >60 (60-); Glucose, Blood 79 mg/dL (70-99); Potassium, Blood 4.4 mmol/L (3.5-5.5); Sodium, Blood 134 mmol/L (136-145)
--- NOTE | 2021-04-14 06:59 | NUR ---
SHIFT SUMMARY PT IS A 61 Y/O MALE, ADMITTED FOR BLE CELLULITIS. HE IS A&O X 3, BEDREST. HE WAS MEDICATED FOR BLE PAIN WITH OXYCODONE AND IV FENTANYL. NO C/O NAUSEA OR SOB. BP WAS LOW DURING THE NIGHT IN THE 90S SYSTOLIC. VITAL SIGNS STABLE. NO OTHER ACUTE CHANGES IN PT CONDITION NOTED DURING THE NIGHT. WILL CONTINUE TO MONITOR AND TREAT PER EMAR UNTIL HAND OFF TO DAY SHIFT RN.
--- NOTE | 2021-04-14 18:04 | NUR ---
SHIFT SUMMARY PT AOX4; MEDICATED FOR PAIN PER EMAR. UNNA BOOT PLACED ON BOTH LEGS FOR CELLULITIS PER DR ORDER. PT STILL AWAITS FOR PODIATRY CONSULT HOPEFULLY TOMORROW. ON 2L OF O2 A BASELINE. SATS WNL. BED IS IN THE LOWEST POSITION AND CALL LIGHT WITHIN REACH
[2021-04-15 04:54] LABS: Anion Gap 4 mmol/L (6-16); Blood Urea Nitrogen 41 mg/dL (8-24); Bun/Creatinine Ratio 34.2 (12.0-20.0); CO2, Blood 33 mmol/L (21-32); Calcium, Blood 8.4 mg/dL (8.5-10.1); Chloride, Blood 96 mmol/L (98-108); Glomerular Filtration Rate >60 (60-); Glucose, Blood 81 mg/dL (70-99); Potassium, Blood 4.5 mmol/L (3.5-5.5); Sodium, Blood 133 mmol/L (136-145)
--- NOTE | 2021-04-15 06:46 | NUR ---
SHIFT SUMMARY PT IS A 61 Y/O MALE, ADMITTED FOR BLE CELLULITIS. HE IS A&O X 3, BEDREST, TURN Q2H, CONTINENT/INCONTINENT. HE WAS MEDICATED FOR BLE PAIN WITH PRN OXYCODONE AND TYLENOL. NO C/O NAUSEA OR SOB. BP WAS LOW DURING THE NIGHT AT 89/61, AND FLOMAX HELD PER DAY HOSPITALIST. BP WAS IMPROVED THIS AM AT 100/68. VITAL SIGNS OTHERWISE STABLE. NO ACUTE CHANGES IN PT CONDITION NOTED DURING THE NIGHT. WILL CONTINUE TO MONITOR AND TREAT PER EMAR UNTIL HAND OFF TO DAY SHIFT RN.
--- NOTE | 2021-04-15 18:57 | NUR ---
SHIFT SUMMARY: PT A/O X3. PLEASANT AND COOPERATIVE. PAIN MANAGED PER EMAR TODAY. JIA BOOTS ON CDI, PT DOES NOT REPORT CONCERNS WITH CIRCULATION. NO ACUTE CONCERNS.
--- NOTE | 2021-04-16 08:01 | NUR ---
SHIFT SUMMARY VSS. NO ACUTE CHANGES. PT WITH WOUNDS TO BLE, IN INGUINAL FOLDS. BLE IN JIA BOOTS, MANAGED BY [facility]. TWO TOES AMPUTATED ON LEFT FOOT. PT REPOSITIONED THROUGH OUT THE NIGHT AND TREATED WITH PRN PAIN MEDS. PT WILL CALL WHEN PAIN MEDS ARE DUE. REPORT GIVEN TO DAY SHIFT NURSE.
[2021-04-16] MEDS ORDERED: LACT PO (13:11)
[2021-04-16] MEDS ORDERED: AMOCLA875 PO (13:11)
[2021-04-16 14:00] LABS: SARS-Cov-2 (COVID-19) PCR, MMC NEGATIVE (NEGATIVE)
--- NOTE | 2021-04-16 15:36 | NUR ---
DISCHARGE SUMMARY PT DISCHARGE TO FACILITY ORDERED THIS SHIFT AT 1532. PT TRANSPORTED TO [facility]IA [facility]. REPORT GIVEN TO NURSE SAMSON VIA PHONE CALL. PT VERBALIZED UNDERSTANDING OF DISCHARGE TEACHINGS AND INSTRUCTIONS. DRESSING TO BLE C/D/I TO AA. PT MEDICATED THIS SHIFT FOR PAIN TO BLE, REFER TO EMAR. NO CONCERNS OR ISSUES NOTED TO PT PRIOR TO D/C. PT REMAIN AT 2LPM O2 VIA NC, BASELINE. DISCHARGE PAPERWORK GIVEN TO AMBULANCE STAFF PRIOR TO DC. IV LINE DISCONTINUED PRIOR TO DC.
--- NOTE | 2021-04-17 08:13 | NUR ---
Update 04/16/21: Per chart review with Dr. Beckett, pt. appropriate to discharge back to [facility]. Contacted Renita with [facility] central admissions and faxed updates to central admissions as well. Approval received for pt. to return to facility. Transportation arranged for pt. to return at 2:30pm today. Advised nurse of discharge time. Per facility, no further needs. [facility] team will call within 24-48 hours to schedule F/U within 5-7 days.
== END 2021-04-16 16:24 | disposition home or self-care (01) | DRG 603 ==
LOC: ER 20:34 → ERHOLD 23:46 → MEDS 23:46
PROVIDERS: Hospitalist; Student in an Organized Health Care Education/Training Program; ADMIT Internal Medicine
DX: L03.116 Cellulitis of left lower limb (principal); I48.20 Chronic atrial fibrillation, unspecified; J96.11 Chronic respiratory failure with hypoxia; I50.32 Chronic diastolic (congestive) heart failure; I13.0 Hypertensive heart and chronic kidney disease with heart failure and stage 1 through stage 4 chronic kidney disease, or unspecified chronic kidney disease; E66.2 Morbid (severe) obesity with alveolar hypoventilation; L03.115 Cellulitis of right lower limb; G89.4 Chronic pain syndrome; E11.42 Type 2 diabetes mellitus with diabetic polyneuropathy; I87.2 Venous insufficiency (chronic) (peripheral); N18.30 Chronic kidney disease, stage 3 unspecified; Z20.822 Contact with and (suspected) exposure to COVID-19; E11.22 Type 2 diabetes mellitus with diabetic chronic kidney disease; N40.0 Benign prostatic hyperplasia without lower urinary tract symptoms; F32.9 Major depressive disorder, single episode, unspecified; K21.9 Gastro-esophageal reflux disease without esophagitis; F41.9 Anxiety disorder, unspecified; E78.5 Hyperlipidemia, unspecified; I27.20 Pulmonary hypertension, unspecified; J44.9 Chronic obstructive pulmonary disease, unspecified; M19.90 Unspecified osteoarthritis, unspecified site; I48.91 Unspecified atrial fibrillation; Z88.1 Allergy status to other antibiotic agents; Z89.422 Acquired absence of other left toe(s); Z87.891 Personal history of nicotine dependence; Z79.01 Long term (current) use of anticoagulants; Z79.899 Other long term (current) drug therapy; Z79.82 Long term (current) use of aspirin; Z99.81 Dependence on supplemental oxygen; Z68.39 Body mass index [BMI] 39.0-39.9, adult
CPT/HCPCS: 36415; 80048; 80053; 82947; 83605; 85025; 85027; 87040; 93005; 93010; 94760; 96365; 96366; 96375; 99285-25; A9270; J1885; J2270; J2543; J3010; J7050; J7120; U0004

== ENCOUNTER 2021-10-06 09:52 | Emergency (ER) | payer MEDICARE, OTHER ==
[~2021-10-06] VITALS: Ht 175.3 cm; Wt 139.2 kg
[~2021-10-06 09:52] MED LIST changes: +DILT120ERA PO; +KLOR-CON 1010 ME1 PO; +LACT PO; +Lisinopril2.5 MG PO; +MECL12.5 PO; +NYAMYC TOP; +PERCOCET 10-321 EAC1 PO; +PERCOCET 10-321 EAC3 PO; +SERT50 PO
[2021-10-06] MEDS ORDERED: AMOCLA875 PO (10:17)
== END 2021-10-06 13:00 | disposition home or self-care (01) ==
LOC: ER 09:52
DX: L03.115 Cellulitis of right lower limb (principal); E11.9 Type 2 diabetes mellitus without complications; I48.91 Unspecified atrial fibrillation; J44.9 Chronic obstructive pulmonary disease, unspecified; M19.90 Unspecified osteoarthritis, unspecified site; I50.9 Heart failure, unspecified; Z79.899 Other long term (current) drug therapy; Z79.82 Long term (current) use of aspirin; Z88.1 Allergy status to other antibiotic agents
CPT/HCPCS: 36415; 99283; A9270

== ENCOUNTER 2021-12-28 22:19 | Inpatient (IN) | payer MEDICARE, OTHER ==
[~2021-12-28] VITALS: Ht 175.3 cm; Wt 154.2 kg
[2021-12-28 22:42] LABS: BASOPHILS ABSOLUTE AUTO 0.03 K/mm3 (0.00-0.23); BASOPHILS PERCENT AUTO 0 % (0-2); EOSINOPHILS ABSOLUTE AUTO 0.44 K/mm3 (0.00-0.68); EOSINOPHILS PERCENT AUTO 5 % (0-6); Hematocrit 43.7 % (37.0-53.0); Hemoglobin 12.7 g/dL (13.5-17.5); IMMATURE GRAN ABSOLUTE AUTO 0.02 K/mm3 (0.00-0.10); IMMATURE GRAN PERCENT AUTO 0 % (0-1); LYMPHOCYTES ABSOLUTE AUTO 0.48 K/mm3 (0.84-5.20); LYMPHOCYTES PERCENT AUTO 6 % (21-46); MONOCYTES ABSOLUTE AUTO 0.99 K/mm3 (0.16-1.47); MONOCYTES PERCENT AUTO 12 % (4-13); Mean Corpuscular HGB 24.7 pg (26.0-34.0); Mean Corpuscular HGB Conc 29.1 g/dL (31.5-36.5); Mean Corpuscular Volume 85 fL (80-100); Mean Platelet Volume 10.3 fL (9.1-12.4); NEUTROPHILS ABSOLUTE AUTO 6.32 K/mm3 (1.96-9.15); NEUTROPHILS PERCENT AUTO 76 % (41-73); Platelet Count 188 K/mm3 (150-400); RDW Coefficient Variation 21.9 % (11.7-14.2); RDW Standard Deviation 66.9 fL (35.1-46.3); Red Blood Cell Count 5.15 M/mm3 (4.30-5.90); White Blood Cell Count 8.28 K/mm3 (4.00-11.30)
[2021-12-28 22:58] LABS: Source, Urine Clean Catch
[2021-12-28 22:59] LABS: Bilirubin, Urine Neg (Neg); Blood, Urine Neg (Neg); Glucose Qualitative, Urine Neg (Neg); Ketones, Urine Neg (Neg); Leukocyte Esterase, Urine Neg (Neg); Nitrite, Urine Neg (Neg); Protein, Urine Neg (Neg); Urobilinogen, Urine NORM (Normal)
[2021-12-28 23:00] LABS: Albumin, Blood 3.2 g/dL (3.4-5.0); Albumin/Globulin Ratio 0.6 (0.8-1.8); Bilirubin, Total 0.7 mg/dL (0.1-1.0); Bun/Creatinine Ratio 68.8 (12.0-20.0); Calcium, Blood 9.3 mg/dL (8.5-10.1); Creatinine, Blood 1.73 mg/dL (0.60-1.20); Globulin, Blood 5.4 g/dL (2.2-4.0); Potassium, Blood 4.4 mmol/L (3.5-5.5); Total Protein, Blood 8.6 g/dL (6.4-8.2)
[2021-12-28 23:11] LABS: Appearance, Urine Clear (Clear); Color, Urine Yellow (P-Yellow)
[2021-12-29 05:45] LABS: BASOPHILS ABSOLUTE AUTO 0.03 K/mm3 (0.00-0.23); BASOPHILS PERCENT AUTO 0 % (0-2); EOSINOPHILS ABSOLUTE AUTO 0.58 K/mm3 (0.00-0.68); EOSINOPHILS PERCENT AUTO 8 % (0-6); Hematocrit 42.7 % (37.0-53.0); Hemoglobin 12.5 g/dL (13.5-17.5); IMMATURE GRAN ABSOLUTE AUTO 0.02 K/mm3 (0.00-0.10); IMMATURE GRAN PERCENT AUTO 0 % (0-1); LYMPHOCYTES ABSOLUTE AUTO 0.46 K/mm3 (0.84-5.20); LYMPHOCYTES PERCENT AUTO 6 % (21-46); MONOCYTES ABSOLUTE AUTO 0.93 K/mm3 (0.16-1.47); MONOCYTES PERCENT AUTO 12 % (4-13); Mean Corpuscular HGB 24.8 pg (26.0-34.0); Mean Corpuscular HGB Conc 29.3 g/dL (31.5-36.5); Mean Corpuscular Volume 85 fL (80-100); Mean Platelet Volume 9.7 fL (9.1-12.4); NEUTROPHILS ABSOLUTE AUTO 5.65 K/mm3 (1.96-9.15); NEUTROPHILS PERCENT AUTO 74 % (41-73); Platelet Count 182 K/mm3 (150-400); RDW Coefficient Variation 21.8 % (11.7-14.2); RDW Standard Deviation 66.4 fL (35.1-46.3); Red Blood Cell Count 5.05 M/mm3 (4.30-5.90); White Blood Cell Count 7.67 K/mm3 (4.00-11.30)
[2021-12-29 06:08] LABS: Albumin, Blood 3.2 g/dL (3.4-5.0); Albumin/Globulin Ratio 0.6 (0.8-1.8); Bilirubin, Total 0.6 mg/dL (0.1-1.0); Bun/Creatinine Ratio 73.1 (12.0-20.0); Calcium, Blood 9.7 mg/dL (8.5-10.1); Creatinine, Blood 1.6 mg/dL (0.60-1.20); Globulin, Blood 5.5 g/dL (2.2-4.0); Potassium, Blood 4.1 mmol/L (3.5-5.5); Total Protein, Blood 8.7 g/dL (6.4-8.2)
[2021-12-29 12:41] LABS: Influenza A, PCR NEGATIVE (NEGATIVE); Influenza B, PCR NEGATIVE (NEGATIVE); Resp Syncytial Virus, PCR NEGATIVE (NEGATIVE); SARS-Cov-2 (COVID-19) PCR, MMC NEGATIVE (NEGATIVE)
--- NOTE | 2021-12-29 17:09 | NUR ---
SHIFT SUMMARY PATIENT ADMITTED THIS AM FOR ACUTE RESP FAILURE. PATIENT ALERT AND ORIENTED. PATIENT VERY SLEEPY AND SLEPT T/O THE DAY. ON 5L NC WITH SATS READING LOW 90S. USES 2L BASELINE. RECEIVING BREATHING TREATMENTS FROM RT. PRODUCTIVE COUGH, SPUTUM SAMPLE SENT TO LAB AND COVID TEST CAME BACK NEGATIVE. PATIENT BEDBOUND WITH REDDENED/DARK PURPLE ON HIS BOTTOM AND THIGHS. DRY FLACKY SCAB ALL OVER BLE. C/O GENERALIZED PAIN AND MEDICATED PER OCT. ON FLUID RESTRICITON OF 1800. TELE READING SINUS RHYTHM. SOFT BLOOD PRESSURES, ALL OTHER VITAL SIGNS STABLE. BED IN LOW POSITION WITH HOB ELEVATED. WILL CONTINUE TO MONITOR.
[2021-12-30 04:52] LABS: Bun/Creatinine Ratio 80.7 (12.0-20.0); Calcium, Blood 9.8 mg/dL (8.5-10.1); Creatinine, Blood 1.4 mg/dL (0.60-1.20); Potassium, Blood 4.7 mmol/L (3.5-5.5)
--- NOTE | 2021-12-30 07:25 | NUR ---
SHIFT SUMMARY PATIENT ALERT AND ORIENTED. MEDICATED PER EMAR FOR PAIN. NO ACUTE ISSUES NOTED OVERNIGHT. CALL LIGHT WITHIN REACH. REPORT GIVEN TO ONCOMING RN.
[2021-12-30 15:34] LABS: Source, Urine Foley catheter
[2021-12-30 15:43] LABS: Appearance, Urine Clear (Clear); Bilirubin, Urine Neg (Neg); Blood, Urine Neg (Neg); Color, Urine Yellow (P-Yellow); Glucose Qualitative, Urine Neg (Neg); Ketones, Urine Neg (Neg); Leukocyte Esterase, Urine Neg (Neg); Nitrite, Urine Neg (Neg); Protein, Urine Neg (Neg); Urobilinogen, Urine NORM (Normal)
--- NOTE | 2021-12-30 17:29 | NUR ---
SHIFT SUMMARY PT SLEEPING THIS MORNING TIL MIDMORNING WHEN HE WOKE UP AND ATE HIS BREAKFAST. CALL LIGHT USED AT TIMES BUT APPROPRIATE WITH USE AND POLITE WITH CARE. REPORTED FEELING UNABLE TO VOID THIS AFTERNOON AND WAS BLADDER SCANNED FOR 285. DR. VILLA NOTIFIED AND CHOUDHARY PLACED. FORESKIN UNABLE TO BE PULLED BACK TO INSERT CATHETER AND REQUIRED CLEANING WITH SMALL QTIPS TO CLEAN AROUND HEAD OF PENIS UNDER FORESKIN. PENIS ALSO INVERTED. 14F NON COUDE ATTEMPTED WITHOUT SUCCESS BUT 14F COUDE ABLE TO BE INSERTED. PT UNCOMFORTABLE DURING PROCEDURE BUT GRATEFUL TO HAVE CHOUDHARY. 24 HOURS URINE PROTEIN STARTED. PT UNHAPPY ABOUT 1 LITER FLUID RESTRICTION INSTITUTED THIS AFTERNOOON. NO RESP DISTRESS NOTED TODAY. LOWER LEGS DRY AND SCALY.
[2021-12-31 05:25] LABS: Hematocrit 44.2 % (37.0-53.0); Hemoglobin 12.7 g/dL (13.5-17.5)
[2021-12-31 05:55] LABS: Albumin, Blood 3.1 g/dL (3.4-5.0); Anion Gap 6 mmol/L (6-16); Blood Urea Nitrogen 115 mg/dL (8-24); Bun/Creatinine Ratio 76.2 (12.0-20.0); CO2, Blood 37 mmol/L (21-32); Calcium, Blood 9.9 mg/dL (8.5-10.1); Chloride, Blood 93 mmol/L (98-108); Creatinine, Blood 1.51 mg/dL (0.60-1.20); Glomerular Filtration Rate 47 (60-); Glucose, Blood 145 mg/dL (70-99); Phosphorus, Blood 5.7 mg/dL (2.5-4.9); Potassium, Blood 4.9 mmol/L (3.5-5.5); Sodium, Blood 136 mmol/L (136-145)
--- NOTE | 2021-12-31 06:03 | NUR ---
SHIFT SUMMARY PT RESTED WELL, A/O X 4, MED PER MAR FOR C/O CHRONIC PAIN TO BLE'S. VSS, CHOUDHARY PATENT WITH CLEAR, YELLOW URINE, CURRENTLY COLLECTING 24 HR URINE SAMPLE PER ORDERS. PT INCONTINENT OF SMALL, BROWN, SOFT BM, PHYLLIS CARE DONE AND ATTENDS CHANGED. TOWEL PLACED UNDER ABD FOLD TO HELP REDUCE MOISTURE, SKIN PINK. BLE'S SWOLLEN WITH THICK, CRUSTY SKIN NOTED OVER LOWER LEGS AND FEET. LUNGS CLEAR, DIMINISHED, VIVIANA 4L O2 VIA N/C, SOB WITH ACTIVITY AND WHILE LYING FLAT. ANTICIPATE D/C WHEN MEDICALLY STABLE.
[2021-12-31 17:20] LABS: Protein, Urine Quantitative 8.2 mg/dL (0.0-11.9)
--- NOTE | 2021-12-31 18:12 | NUR ---
SHIFT SUMMARY PT AWAKE FOR MOST OF DAY UNTIL 1640 AND FOUND ASLEEP. HAS BEEN UNHAPPY WITH FLUID RESTRICTION FEELING HE HASN'T GOTTEN MORE THAN ICE MOST OF THE DAY. DENIES RESP DISTRESS TODAY. REMAINS ON O2 AT 4L/M WITH CONTINUOUS PULSE OX. MEDICATED FOR PAIN ONCE SO FAR TODAY. POSSIBLE DISCHARGE BACK TO FACILITY TOMORROW. 24 HOURS URINE PROTEIN COMPLETED AND TO LAB. P.T. IN TO SEE PT. PT USES A LIFT AT BASELINE TO GET UP.
[2022-01-01 05:07] LABS: Hematocrit 44.8 % (37.0-53.0)
[2022-01-01 05:31] LABS: Albumin, Blood 3.2 g/dL (3.4-5.0); Anion Gap 6 mmol/L (6-16); Blood Urea Nitrogen 124 mg/dL (8-24); CO2, Blood 37 mmol/L (21-32); Calcium, Blood 9.6 mg/dL (8.5-10.1); Chloride, Blood 92 mmol/L (98-108); Creatinine, Blood 1.55 mg/dL (0.60-1.20); Glomerular Filtration Rate 46 (60-); Glucose, Blood 97 mg/dL (70-99); Magnesium, Blood 2.7 mg/dL (1.6-2.4); Phosphorus, Blood 4.8 mg/dL (2.5-4.9); Potassium, Blood 4.3 mmol/L (3.5-5.5); Sodium, Blood 135 mmol/L (136-145)
--- NOTE | 2022-01-01 05:32 | NUR ---
PT RESTED WELL, MED PER MAR FOR C/O PAIN TO BLE'S, VIVIANA PO WELL, CHOUDHARY PATENT WITH CLEAR, YELLOW URINE. SKIN TO BLE'S NICOLAS WITH THICK, SCALY PATCHES NOTED ALL OVER. LUNGS CLEAR, DIMINISHED, VIVIANA 3L O2 VIA N/C. VSS, ANTICIPATE D/C WHEN MEDICALLY STABLE.
--- NOTE | 2022-01-01 08:47 | NUR ---
CALLED DR MCMILLAN- PT SBP HAS BEEN RUNNING IN THE 90'S THIS AM IS 104 REQUESTED PARAMETERS FOR BUMEX AND METOPROLOL. NEW PARAMETERS TO HOLD FOR SBP LESS THAN 110. THIS AM DOSES HELD FOR LOW SBP. DR VERDUZCO.
--- NOTE | 2022-01-01 16:37 | NUR ---
SHIFT SUMMARY- PT ALERT AND ORIENTED BUT FORGETFUL. PT IS CURRENTLY ON A FLUID RESTRICTION AND WOULD LIKE MORE FLUIDS. BP HAS BEEN RUNNING LOW (DR VERDUZCO) RECIEVED NEW MED PARAMETERS TO HOLD FOR SBP LESS THAN 110. PT RECIEVED NO BUMEX OR METOPROLOL THIS AM, DR VERDUZCO. FLUID RESTRICTION SET AT 1300ML DAILY PT CURRENTLY AT 620ML AND JUST RECIEVED 250ML MORE. PT IS A LIFT PT AND NEEDS A LIFT ROOM IF HE IS NOT GOING TO DISCHARGE BACK TO [facility] TOMORROW PLANNED. PT DECLINES TO BE MOVED FREQUENTLY AND DECLINED TO WORK WITH THERAPY STATING HE WAS JUST WAKING UP.
--- NOTE | 2022-01-01 18:32 | NUR ---
Shift Summary - PT altert and orient but sometimes forgetful. Pt on a 1200 ml/day fluid restriction and unhappy with the low amount. Pt is bedbound and requires a lift to transfer. Pt c/o 8/10 pain in upper and lower bilateral extremeties all day, describing the pain as burning neuropathic pain. PRN analgesic and neuropathic pain medications (see emr) only helped a litte, pain remained at a reported 8. Pt was sleepy t/o the day, taking naps and feeling drowsy while awake. Pt has been hypotensive today, the is aware and new parameters were set for his beta randy to hold below 110 systolic. Current plan is to discharge pt back to [facility] tomorrow.
--- NOTE | 2022-01-02 04:12 | NUR ---
PT A & O TO SELF AND PLACE. PT FORGETFUL AT TIMES. ADA DIET. PT REPORTED HAVING LEG PAIN TWICE. PRN ROXYCODONE GIVEN ORDERED FOR PAIN. PT VOIDED W/O DIFFICULTY. O2 AT 3LPM VIA N/C. CHAIRFAST.2-ASSIST. NO BM THIS SHIFT. 1300 ML FLUID RESTRICTION. IV TO LEFT HAND FLUSHED W/O DIFFICULTY. V/S WNL. WILL CONTINUE TO MONITOR.
[2022-01-02 05:50] LABS: Hematocrit 44.9 % (37.0-53.0); Hemoglobin 12.9 g/dL (13.5-17.5)
[2022-01-02 06:11] LABS: Albumin, Blood 3.1 g/dL (3.4-5.0); Anion Gap 5 mmol/L (6-16); Blood Urea Nitrogen 116 mg/dL (8-24); Bun/Creatinine Ratio 87.9 (12.0-20.0); CO2, Blood 37 mmol/L (21-32); Calcium, Blood 9.6 mg/dL (8.5-10.1); Chloride, Blood 92 mmol/L (98-108); Creatinine, Blood 1.32 mg/dL (0.60-1.20); Glomerular Filtration Rate 55 (60-); Glucose, Blood 169 mg/dL (70-99); Magnesium, Blood 2.7 mg/dL (1.6-2.4); Phosphorus, Blood 4.7 mg/dL (2.5-4.9); Sodium, Blood 134 mmol/L (136-145)
[2022-01-02 12:24] LABS: Influenza A, PCR NEGATIVE (NEGATIVE); Influenza B, PCR NEGATIVE (NEGATIVE); Resp Syncytial Virus, PCR NEGATIVE (NEGATIVE); SARS-Cov-2 (COVID-19) PCR, MMC NEGATIVE (NEGATIVE)
--- NOTE | 2022-01-02 18:05 | NUR ---
DISCHARGE NOTE- PT RECIEVED A FULL BED BATH TODAY JUST PRIOR TO DISCHARGE BACK TO [facility] WHERE HE RESIDES. PT WAS TAKEN VIA GURNEY TRANSPORT TO HIS FACILITY NO S&S OF DISTRESS NOTED AT THE TIME OF DISCHARGE. PT ON 3L O2 VIA NC AT THE TIME OF DISCHARGE.
[2022-01-02] MEDS ORDERED: MIDO5 PO (18:27)
[2022-01-02] MEDS ORDERED: AZIT500 PO (18:27)
[2022-01-02] MEDS ORDERED: Prednisone10 MG PO (18:28)
[2022-01-02] MEDS ORDERED: TIOT18 INH (18:29)
[2022-01-02] MEDS ORDERED: CEFD300 PO (18:29)
== END 2022-01-02 15:27 | DRG 193 ==
LOC: ER 22:19 → MEDS 12-29 02:59
PROVIDERS: Internal Medicine; Internal Medicine Nephrology; Student in an Organized Health Care Education/Training Program; ADMIT Internal Medicine
DX: J18.9 Pneumonia, unspecified organism (principal); J96.21 Acute and chronic respiratory failure with hypoxia; J44.0 Chronic obstructive pulmonary disease with (acute) lower respiratory infection; J44.1 Chronic obstructive pulmonary disease with (acute) exacerbation; N17.9 Acute kidney failure, unspecified; Z68.43 Body mass index [BMI] 50.0-59.9, adult; N25.81 Secondary hyperparathyroidism of renal origin; E66.2 Morbid (severe) obesity with alveolar hypoventilation; E87.1 Hypo-osmolality and hyponatremia; I13.0 Hypertensive heart and chronic kidney disease with heart failure and stage 1 through stage 4 chronic kidney disease, or unspecified chronic kidney disease; I50.32 Chronic diastolic (congestive) heart failure; Z20.822 Contact with and (suspected) exposure to COVID-19; I48.91 Unspecified atrial fibrillation; I87.2 Venous insufficiency (chronic) (peripheral); R60.0 Localized edema; N18.2 Chronic kidney disease, stage 2 (mild); I27.20 Pulmonary hypertension, unspecified; E11.22 Type 2 diabetes mellitus with diabetic chronic kidney disease; E11.42 Type 2 diabetes mellitus with diabetic polyneuropathy; G89.4 Chronic pain syndrome; E87.5 Hyperkalemia; D63.1 Anemia in chronic kidney disease; E11.51 Type 2 diabetes mellitus with diabetic peripheral angiopathy without gangrene; N40.0 Benign prostatic hyperplasia without lower urinary tract symptoms; K21.9 Gastro-esophageal reflux disease without esophagitis; F32.A Depression, unspecified; Z79.82 Long term (current) use of aspirin; Z79.01 Long term (current) use of anticoagulants; Z79.899 Other long term (current) drug therapy; Z99.81 Dependence on supplemental oxygen; Z88.1 Allergy status to other antibiotic agents; Z89.422 Acquired absence of other left toe(s)
CPT/HCPCS: 0241U; 36415; 71045; 76770; 80048; 80053; 80069; 81003; 81050; 82947; 83735; 83880; 84145; 84156; 84484; 85014; 85018; 85025; 87070; 87205; 93005; 93010; 94640; 94664; 94760; 94762; 96365; 96375; 97110; 97162; 97166; 97530; 99285-25; A9270; G0103; J0456; J0696; J1940; J2930; J3010; J7060; J7512

== ENCOUNTER → 2022-02-27 | Outpatient (CLI) | payer MEDICARE, OTHER ==
[~2022-02-27] MED LIST changes: +MIDO5 PO; +Prednisone10 MG PO; +TIOT18 INH
[2022-02-27 14:08] LABS: Albumin, Blood 2.9 g/dL (3.4-5.0); Anion Gap 6 mmol/L (6-16); Blood Urea Nitrogen 40 mg/dL (8-24); Bun/Creatinine Ratio 38.1 (12.0-20.0); CO2, Blood 31 mmol/L (21-32); Calcium, Blood 9.2 mg/dL (8.5-10.1); Chloride, Blood 97 mmol/L (98-108); Creatinine, Blood 1.05 mg/dL (0.60-1.20); Glomerular Filtration Rate 80 (60-); Glucose, Blood 154 mg/dL (70-99); Phosphorus, Blood 3.4 mg/dL (2.5-4.9); Potassium, Blood 4.7 mmol/L (3.5-5.5); Sodium, Blood 134 mmol/L (136-145)
[2022-02-28 00:02] LABS: BASOPHILS ABSOLUTE AUTO 0.03 K/mm3 (0.00-0.23); BASOPHILS PERCENT AUTO 1 % (0-2); EOSINOPHILS ABSOLUTE AUTO 0.16 K/mm3 (0.00-0.68); EOSINOPHILS PERCENT AUTO 3 % (0-6); Hematocrit 41.2 % (37.0-53.0); Hemoglobin 11.9 g/dL (13.5-17.5); IMMATURE GRAN ABSOLUTE AUTO 0.01 K/mm3 (0.00-0.10); IMMATURE GRAN PERCENT AUTO 0 % (0-1); LYMPHOCYTES ABSOLUTE AUTO 0.51 K/mm3 (0.84-5.20); LYMPHOCYTES PERCENT AUTO 8 % (21-46); MONOCYTES ABSOLUTE AUTO 0.86 K/mm3 (0.16-1.47); MONOCYTES PERCENT AUTO 14 % (4-13); Mean Corpuscular HGB 23.5 pg (26.0-34.0); Mean Corpuscular HGB Conc 28.9 g/dL (31.5-36.5); Mean Corpuscular Volume 81 fL (80-100); NEUTROPHILS ABSOLUTE AUTO 4.75 K/mm3 (1.96-9.15); NEUTROPHILS PERCENT AUTO 75 % (41-73); Platelet Count 182 K/mm3 (150-400); RDW Coefficient Variation 17.6 % (11.7-14.2); RDW Standard Deviation 51.7 fL (35.1-46.3); Red Blood Cell Count 5.07 M/mm3 (4.30-5.90); White Blood Cell Count 6.32 K/mm3 (4.00-11.30)
[2022-02-28 00:23] LABS: Albumin, Blood 2.9 g/dL (3.4-5.0); Albumin/Globulin Ratio 0.6 (0.8-1.8); Bun/Creatinine Ratio 40.2 (12.0-20.0); Calcium, Blood 9.1 mg/dL (8.5-10.1); Creatinine, Blood 1.17 mg/dL (0.60-1.20); Globulin, Blood 4.9 g/dL (2.2-4.0); Potassium, Blood 4.7 mmol/L (3.5-5.5); Total Protein, Blood 7.8 g/dL (6.4-8.2)
[2022-03-04 13:08] LABS: ATYPICAL PANCA <1:20 titer (Neg:<1:20); CYTOPLASMIC (C-ANCA) <1:20 titer (Neg:<1:20); PERINUCLEAR (P-ANCA) <1:20 titer (Neg:<1:20)
== END | disposition home or self-care (01) ==
LOC: LAB RH 12:20 → EDSTATUS 14:02
PROVIDERS: Hospitalist; Internal Medicine
DX: I10 Essential (primary) hypertension (principal); J96.11 Chronic respiratory failure with hypoxia; K29.71 Gastritis, unspecified, with bleeding
CPT/HCPCS: 80053; 80069; 83516; 85018; 85025; 86037; 86038

== ENCOUNTER 2022-04-11 19:48 | Inpatient (IN) | payer MEDICARE, OTHER ==
[~2022-04-11] VITALS: Ht 170.2 cm; Wt 157.0 kg
[2022-04-11 20:18] LABS: BASOPHILS ABSOLUTE AUTO 0.04 K/mm3 (0.00-0.23); BASOPHILS PERCENT AUTO 0 % (0-2); EOSINOPHILS PERCENT AUTO 4 % (0-6); Hematocrit 45.7 % (37.0-53.0); Hemoglobin 12.6 g/dL (13.5-17.5); IMMATURE GRAN ABSOLUTE AUTO 0.08 K/mm3 (0.00-0.10); IMMATURE GRAN PERCENT AUTO 1 % (0-1); LYMPHOCYTES ABSOLUTE AUTO 0.34 K/mm3 (0.84-5.20); LYMPHOCYTES PERCENT AUTO 3 % (21-46); MONOCYTES ABSOLUTE AUTO 0.76 K/mm3 (0.16-1.47); MONOCYTES PERCENT AUTO 6 % (4-13); Mean Corpuscular HGB 21.7 pg (26.0-34.0); Mean Corpuscular HGB Conc 27.6 g/dL (31.5-36.5); Mean Corpuscular Volume 79 fL (80-100); Mean Platelet Volume 9.9 fL (9.1-12.4); NEUTROPHILS ABSOLUTE AUTO 10.79 K/mm3 (1.96-9.15); NEUTROPHILS PERCENT AUTO 86 % (41-73); Platelet Count 199 K/mm3 (150-400); RDW Coefficient Variation 19.3 % (11.7-14.2); RDW Standard Deviation 52.4 fL (35.1-46.3); White Blood Cell Count 12.51 K/mm3 (4.00-11.30)
[2022-04-11 20:36] LABS: Albumin, Blood 3.4 g/dL (3.4-5.0); Albumin/Globulin Ratio 0.6 (0.8-1.8); Bilirubin, Total 1.7 mg/dL (0.1-1.0); Bun/Creatinine Ratio 39.6 (12.0-20.0); Calcium, Blood 9.5 mg/dL (8.5-10.1); Creatinine, Blood 1.11 mg/dL (0.60-1.20); Globulin, Blood 5.5 g/dL (2.2-4.0); Potassium, Blood 4.5 mmol/L (3.5-5.5); Total Protein, Blood 8.9 g/dL (6.4-8.2)
[2022-04-11 23:47] LABS: Base Excess Venous 6.3 mmol/L; Bicarbonate Venous 28.6 mmol/L (24.0-30.0); PCO2 Venous 52 mmHg (38-42); pH Blood Venous 7.39 (7.34-7.37)
--- NOTE | 2022-04-12 01:29 | NUR ---
PATIENT TO ROOM AT 2318 FROM ED. SLID TO BED, PATIENT IS LETHARGIC AND RESPONDS TO VERBAL STIMULI. SLOW TO RESPONED AND FALLS ASLEEP IN BETWEEN QUESTIONS. ORIENTED X4. 02 SATS 98% ON 6L VIA OXYMIZER, LS CLEAR TO DIMINISHED. PATIENTS LIPS AND NAIL BEDS APPEAR CYANOTIC, VBC DONE WHEN PATIENT ARRIVED. HR FROM ST 104, IN AND OUT OF A.FIB AT TIMES. BP WITH MAP >65, PATIENT DENIES CP/PRESSURE. WOUNDS T/O, PHOTOS IN CHART, WOUNDS CLEANED AND DRESSINGS CHANGED. PATIENT REFUSED CHOUDHARY CATHETER, ATTEMPTING TO USE URINAL BUT UNABLE TO VOID, REFUSES ASSISTANCE WITH URINAL. 2-3 PERSON ASSIST WITH REPOSITIONING. CALLED DAUGHTER AND OBTAINED HEALTH HISTORY FROM HER. CALL LIGHT IN REACH. SEE ADMIT ASSESSMENT FOR MORE INFORMATION.
[2022-04-12 03:43] LABS: BASOPHILS ABSOLUTE AUTO 0.03 K/mm3 (0.00-0.23); BASOPHILS PERCENT AUTO 0 % (0-2); EOSINOPHILS ABSOLUTE AUTO 0.04 K/mm3 (0.00-0.68); EOSINOPHILS PERCENT AUTO 0 % (0-6); Hematocrit 46.2 % (37.0-53.0); Hemoglobin 13.1 g/dL (13.5-17.5); IMMATURE GRAN ABSOLUTE AUTO 0.09 K/mm3 (0.00-0.10); IMMATURE GRAN PERCENT AUTO 1 % (0-1); LYMPHOCYTES ABSOLUTE AUTO 0.27 K/mm3 (0.84-5.20); LYMPHOCYTES PERCENT AUTO 2 % (21-46); MONOCYTES ABSOLUTE AUTO 0.78 K/mm3 (0.16-1.47); MONOCYTES PERCENT AUTO 5 % (4-13); Mean Corpuscular HGB 22.3 pg (26.0-34.0); Mean Corpuscular HGB Conc 28.4 g/dL (31.5-36.5); Mean Corpuscular Volume 79 fL (80-100); NEUTROPHILS ABSOLUTE AUTO 15.63 K/mm3 (1.96-9.15); NEUTROPHILS PERCENT AUTO 93 % (41-73); Platelet Count 168 K/mm3 (150-400); RDW Coefficient Variation 19.4 % (11.7-14.2); RDW Standard Deviation 52.9 fL (35.1-46.3); Red Blood Cell Count 5.87 M/mm3 (4.30-5.90); White Blood Cell Count 16.84 K/mm3 (4.00-11.30)
[2022-04-12 04:01] LABS: Albumin, Blood 3.2 g/dL (3.4-5.0); Albumin/Globulin Ratio 0.6 (0.8-1.8); Bilirubin, Total 1.7 mg/dL (0.1-1.0); Bun/Creatinine Ratio 40.2 (12.0-20.0); Calcium, Blood 9.5 mg/dL (8.5-10.1); Creatinine, Blood 1.12 mg/dL (0.60-1.20); Globulin, Blood 5.3 g/dL (2.2-4.0); Potassium, Blood 4.6 mmol/L (3.5-5.5); Total Protein, Blood 8.5 g/dL (6.4-8.2)
--- NOTE | 2022-04-12 06:07 | NUR ---
SHIFT SUMMARY PATIENT IS LETHARGIC, RESPONDS TO VERBAL STIMULI. ORIENTED X4. 02 SATS 95% ON 6L VIA OXYMIZER. HR A.FIB 90s. BP WITH MAP >65, SYSTOLIC IN THE 80s AT TIMES. PATIENT INCONTINENT OF BLADDER, BRIEF CHANGE AND REPOSITIONED Q2 HOURS. PATIENT SLEPT MOST THE NIGHT, REFUSES CPAP. CALL LIGHT IN REACH
--- NOTE | 2022-04-12 09:14 | NUR ---
ASSUMED CARE OF PT @0700. PT RESTING COMFORTABLY IN ROOM ON 6L O2 VIA OXYMIZER CANNULA, SATS >92 %. PATENT IV IN R WRIST. PT INCONTINENT OF LG AMOUNTS OF URINE. LINENS CHANGED, PT VOCAL AND CRYING OUT DURING TURNING AND CLEANING. PT COMPLAINED OF 8/10 PAIN IN LEGS AND FEET. PT ABLE TO SWALLOW WATER AND ORAL MEDICATIONS SAFELY. CALLED MD REGARDING CONSITENT HYPOTENSION, SBP 80-90'S WITH A MAP >65. MD WILL PUT IN ORDERS REGARDING METOPROLOL AND BUMEX. PT STATES THAT HE WOULD LIKE TO EAT BREAKFAST, DIET ORDER PENDING.
--- NOTE | 2022-04-12 14:33 | NUR ---
PT REMAINS ALERT AND ORIENTED. SLEEPING OFF AND ON. EASILY ROUSABLE. DR. GONZALEZ CONSULTED VIA PHONE FOR SBP REMAINING IN THE 80'S AND MAP >65. PER , DAYANNA BUMEX AND START NS @50MLS/HR.
--- NOTE | 2022-04-12 17:53 | NUR ---
SHIFT SUMMARY PT ALERT AND ORIENTED ALL SHIFT. SLEPT OFF AND ON BUT WAS EASILY ROUSED. PT HAS 8/10 CHRONIC LEG AND FOOT PAIN. HR 90-100 A-FIB, SBP 80-90'S MAP >65. NS 50MLS/HR STARTED. O2 SATS >92%, OXYMIZER SWITCHED TO NC 4L. PT EATING/DRINKING/SWALLOWING PILLS WITHOUT DIFFICULTY. COOPERATIVE BUT PAINFUL DURING REPOSITIONING. USING URINAL. MAKES NEEDS KNOWN, USES CALL LIGHT APPROPRIETLY.
--- NOTE | 2022-04-12 20:09 | NUR ---
ASSUMED CARE AT 1900 PATIENT IS DROWSY, RESPONDS TO VERBAL STIMULI, ORIENTED X4, ABLE TO STAY AWAKE FOR CONVERSATIONS. FOLLOWS COMMANDS. 02 SATS 93% ON 4L NC. LS CLEAR TO DIMINISHED. HR A.FIB 80-90s. BP WITH SYSTOLICS 80-90s, MAP >65. HELD METOPROLOL. PATIENT USES URINAL. BRIEF IN PLACE. LOTION APPLIED TO LEGS, PATIENT REPOSITIONED. CALL LIGHT IN REACH. SEE SHIFT ASSESSMENT FOR MORE DETAIL.
[2022-04-13 03:44] LABS: BASOPHILS ABSOLUTE AUTO 0.02 K/mm3 (0.00-0.23); BASOPHILS PERCENT AUTO 0 % (0-2); EOSINOPHILS PERCENT AUTO 2 % (0-6); Hematocrit 41.6 % (37.0-53.0); Hemoglobin 11.3 g/dL (13.5-17.5); IMMATURE GRAN ABSOLUTE AUTO 0.04 K/mm3 (0.00-0.10); IMMATURE GRAN PERCENT AUTO 0 % (0-1); LYMPHOCYTES ABSOLUTE AUTO 0.42 K/mm3 (0.84-5.20); LYMPHOCYTES PERCENT AUTO 5 % (21-46); MONOCYTES ABSOLUTE AUTO 0.91 K/mm3 (0.16-1.47); MONOCYTES PERCENT AUTO 10 % (4-13); Mean Corpuscular HGB 21.9 pg (26.0-34.0); Mean Corpuscular HGB Conc 27.2 g/dL (31.5-36.5); Mean Corpuscular Volume 81 fL (80-100); Mean Platelet Volume 9.9 fL (9.1-12.4); NEUTROPHILS ABSOLUTE AUTO 7.66 K/mm3 (1.96-9.15); NEUTROPHILS PERCENT AUTO 83 % (41-73); Platelet Count 156 K/mm3 (150-400); RDW Coefficient Variation 18.3 % (11.7-14.2); RDW Standard Deviation 52.3 fL (35.1-46.3); Red Blood Cell Count 5.16 M/mm3 (4.30-5.90); White Blood Cell Count 9.25 K/mm3 (4.00-11.30)
[2022-04-13 04:02] LABS: Albumin, Blood 2.9 g/dL (3.4-5.0); Albumin/Globulin Ratio 0.6 (0.8-1.8); Bilirubin, Total 1.1 mg/dL (0.1-1.0); Bun/Creatinine Ratio 34.9 (12.0-20.0); Calcium, Blood 9.4 mg/dL (8.5-10.1); Creatinine, Blood 1.49 mg/dL (0.60-1.20); Globulin, Blood 5.2 g/dL (2.2-4.0); Magnesium, Blood 2.1 mg/dL (1.6-2.4); Phosphorus, Blood 5.7 mg/dL (2.5-4.9); Potassium, Blood 4.6 mmol/L (3.5-5.5); Total Protein, Blood 8.1 g/dL (6.4-8.2)
--- NOTE | 2022-04-13 05:38 | NUR ---
SHIFT SUMMARY PATIENT IS ALERT AND ORIENTED X4. 02 SATS 96% ON 4L VIA NC. HR A.FIB 80s-105. BP WITH MAP >65 THROUGH THE NIGHT. SYSTOLIC BP RANGING FROM 70s-100. PATIENT INCONTINENT ONCE OF BLADDER. REPOSITIONED Q2 HOURS. MEDICATED FOR LEG PAIN PER EMAR. CALL LIGHT IN REACH.
--- NOTE | 2022-04-13 07:24 | NUR ---
CARE OF PT ASSUMED AT 0700. PT WIDE AWAKE WATCHING TV. C/O CHRONIC PAIN TO LEGS 04/09, STATES PAIN SOMETIMES GOES DOWN TO 6/10. PT "UNABLE" TO MOVE SELF IN BED TO REPOSITION SELF. WILL GET PT OOB TO CHAIR USING LIFT TODAY. SATS 98% ON 4L VIA N/C. O2 DECREASED TO 3L. LUNGS CLEAR, VERY DIMINISHED TO BASES PT UNABLE TO TAKE DEEP BREATH POSSIBLY D/T OBESITY. PT REMAINS HYPOTENSIVE WITH MAP >65, PT ASYMPTOMATIC. PT AFIB W RATE AROUND 100.
--- NOTE | 2022-04-13 08:20 | NUR ---
DR GONZALEZ IN TO SEE PT. IVF DC'D. LYRICA CHANGED TO HOME DOSE. PT NOW MEDICAL STATUS NO TELE.
--- NOTE | 2022-04-13 10:15 | NUR ---
REPORT GIVEN TO VY GARCÍA. PT TO BE TRANSFERED TO 325 SHORTLY
--- NOTE | 2022-04-13 10:31 | NUR ---
PATIENT ARRIVED TO MEDICAL FLOOR RM 325. PATIENT TRANSFERRED USING LIFT.
--- NOTE | 2022-04-13 15:50 | NUR ---
SHIFT SUMMARY PATIENT IS A TRANSFER FROM ICU THIS MORNING. PATIENT IS ALERT AND ORIENTED. PATIENT IS A LIFT PATIENT. PATIENT HAS HAD NO ACUTE EVENTS THIS SHIFT. PATIENT HAS HAD LOW BUT STABLE BP. VITAL SIGNS REVIEWED. PATIENT HAS NOT COMPLAINED OF NAUSEA, SOB OR VOMITTING. PATIENT HAS COMPLAINED OF PAIN AND MEDICATED PER EMAR. BED IN LOCKED AND LOWEST POSITION. CALL LIGHT IN PLACE. WILL MONITOR UNTIL SHIFT CHANGE.
--- NOTE | 2022-04-14 03:27 | NUR ---
DRIVER STARTING GATE SUMMARY AT HS VOICED NAUSEA. ANTIEMETIC ORDERED AND ADMINISTERED WITH HS MEDS. O2 PER NC AT 3L/MIN. ASSISTED WITH URINAL, VOIDED QS, CALLI COLOR. DRESSINGS OF ULCERS, ETC INTACT. VOICED DECREASED FEELING IN BLE, THAT IT HAD BEEN THAT WAY FOR SOME TIME. HAS BEEN RESTING WITH HOB EPEVATED AT APPROX 60 DEGREES FOR BREATHING COMFORT HE IS VERY OBESE. CALL LIGHT IN REACH. ASSISTED WITH REPOSITIONING. NO NOTED S/S ACUTE DISTRESS. WILL CONTINUE TO MONITOR
[2022-04-14 06:01] LABS: BASOPHILS ABSOLUTE AUTO 0.03 K/mm3 (0.00-0.23); BASOPHILS PERCENT AUTO 0 % (0-2); EOSINOPHILS PERCENT AUTO 1 % (0-6); IMMATURE GRAN ABSOLUTE AUTO 0.05 K/mm3 (0.00-0.10); IMMATURE GRAN PERCENT AUTO 1 % (0-1); LYMPHOCYTES PERCENT AUTO 6 % (21-46); MONOCYTES ABSOLUTE AUTO 1.28 K/mm3 (0.16-1.47); MONOCYTES PERCENT AUTO 15 % (4-13); Mean Corpuscular HGB 21.9 pg (26.0-34.0); Mean Corpuscular HGB Conc 27.3 g/dL (31.5-36.5); Mean Corpuscular Volume 80 fL (80-100); Mean Platelet Volume 10.2 fL (9.1-12.4); NEUTROPHILS PERCENT AUTO 77 % (41-73); Platelet Count 188 K/mm3 (150-400); RDW Coefficient Variation 18.3 % (11.7-14.2); Red Blood Cell Count 5.48 M/mm3 (4.30-5.90); White Blood Cell Count 8.46 K/mm3 (4.00-11.30)
[2022-04-14 06:07] LABS: Bun/Creatinine Ratio 40.6 (12.0-20.0); Calcium, Blood 9.3 mg/dL (8.5-10.1); Creatinine, Blood 1.55 mg/dL (0.60-1.20)
--- NOTE | 2022-04-14 08:00 | NUR ---
pt laying in bed watching tv, a/ox3, flat affect, states he's in pain in his legs, has a bit of a jerking tremor, he reports this happens when hes in pain, follows commands, lungs are clear in upper chen, dim in bases, resp even and unlabored, no cough noted, on 3liters 02 via n/c, he reports he is chronically on , hrirr, 2+ edema noted to b/l le, ppp faint, cap refill <3sec, vs stable, afebrile, iv site is clear and patent, btx4, abd flat soft nontender, voids via urinal with assist, has multiple dressings in place, to left ft, heels are covered, coccyx, and right hip, he is a lift to transfer, can barely move feet, kierra, call light in reach.
--- NOTE | 2022-04-14 18:05 | NUR ---
pt doing ok, sleepy, sleeps when left undisturbed, no acute changes this shift. call light in reach.
[2022-04-15 10:32] LABS: Influenza A, PCR NEGATIVE (NEGATIVE); Influenza B, PCR NEGATIVE (NEGATIVE); Resp Syncytial Virus, PCR NEGATIVE (NEGATIVE); SARS-Cov-2 (COVID-19) PCR, MMC NEGATIVE (NEGATIVE)
--- NOTE | 2022-04-15 14:14 | NUR ---
Spoke with Dr Waterman and discussed case. Pt's family may benefit from some advanced care planning, code status discussion, and goals of care. Pt resting in bed and appears significantly lethargic. Pt struggles with keeping his eyes opened and unable to answer orientation questions correctly. Pt A&OX1. Called and spoke with Pt's daughter Bernie. Provided update and reviewed plan of care. Gentle education on disease process including trajectory. Discussed the importance of planning for the future including comfort care and hospice. Discussed code status wishes. Educated on life sustaining treatments including risk factors and implications of CPR. Bernie V/U and would like to speak with her younger brother regarding all the information provided. She reports thinking her dad (Pt) may not want CPR given the information provided. She reports her older brother received CPR in his 30's and suffered from brain damage as a result and has since . Offered active listening and answered questions. Bernie reports plan to set up her voicemail so medical staff can leave voicemail. Palliative Care will remain available.
[2022-04-15 16:22] LABS: Base Excess Venous -2.3 mmol/L; Bicarbonate Venous 21.8 mmol/L (24.0-30.0); PCO2 Venous 59.4 mmHg (38-42); pH Blood Venous 7.24 (7.34-7.37)
--- NOTE | 2022-04-15 16:31 | NUR ---
called about critical abg value. discussed RT evaluate. will f/u with rt. pt on 5L O2
[2022-04-15 17:26] LABS: BASOPHILS ABSOLUTE AUTO 0.03 K/mm3 (0.00-0.23); BASOPHILS PERCENT AUTO 0 % (0-2); EOSINOPHILS ABSOLUTE AUTO 0.01 K/mm3 (0.00-0.68); EOSINOPHILS PERCENT AUTO 0 % (0-6); Hematocrit 46.6 % (37.0-53.0); Hemoglobin 12.7 g/dL (13.5-17.5); IMMATURE GRAN ABSOLUTE AUTO 0.09 K/mm3 (0.00-0.10); IMMATURE GRAN PERCENT AUTO 1 % (0-1); LYMPHOCYTES PERCENT AUTO 4 % (21-46); MONOCYTES ABSOLUTE AUTO 1.08 K/mm3 (0.16-1.47); MONOCYTES PERCENT AUTO 11 % (4-13); Mean Corpuscular HGB 21.9 pg (26.0-34.0); Mean Corpuscular HGB Conc 27.3 g/dL (31.5-36.5); Mean Corpuscular Volume 80 fL (80-100); Mean Platelet Volume 10.6 fL (9.1-12.4); NEUTROPHILS ABSOLUTE AUTO 8.49 K/mm3 (1.96-9.15); NEUTROPHILS PERCENT AUTO 84 % (41-73); NRBC ABSOLUTE 0.04 K/mm3 (0.00-0.02); NRBC Auto 0.4 /100 WBC (0.0-0.2); Platelet Count 229 K/mm3 (150-400); RDW Coefficient Variation 18.8 % (11.7-14.2); RDW Standard Deviation 51.8 fL (35.1-46.3); Red Blood Cell Count 5.81 M/mm3 (4.30-5.90)
--- NOTE | 2022-04-15 17:34 | NUR ---
SHIFT SUMMARY- PT CONFUSED THROUGHOUT SHIFT. PT LIPS, NOSE, FINGERNAIL BEDS BLUSIH TINT. DR IN CONTACT THROUGHOUT SHIFT. LABS, RT CONTACTED DIRECTED, SEE EMAR. PT ON BIPAP NOW SATING IN 90'S COLOR RETURNING TO FINGERNAIL BEDS. PT LESS TWITCHY AT THIS MOMENT. HR IN 40'S TO 110'S, TELE ORDERED PER . WILL CONTINUE TO MONITOR. CALL LIGHT IN REACH.
[2022-04-15 17:54] LABS: PCO2 Arterial 62.1 mmHg (35-45); PO2 Arterial 89.6 mmHg (80-100)
[2022-04-15 18:03] LABS: Albumin, Blood 3.2 g/dL (3.4-5.0); Anion Gap 11 mmol/L (6-16); Blood Urea Nitrogen 88 mg/dL (8-24); Bun/Creatinine Ratio 35.6 (12.0-20.0); CO2, Blood 24 mmol/L (21-32); Calcium, Blood 9.8 mg/dL (8.5-10.1); Chloride, Blood 94 mmol/L (98-108); Creatinine, Blood 2.47 mg/dL (0.60-1.20); Glomerular Filtration Rate 29 (60-); Glucose, Blood 90 mg/dL (70-99); Sodium, Blood 129 mmol/L (136-145)
[2022-04-15 18:04] LABS: pH Blood Arterial 7.22 (7.35-7.45)
--- NOTE | 2022-04-15 18:44 | NUR ---
TRANSFERRED TO PCU 9, GAVE REPORT TO RN IN PCU. ALL BELONGINGS WITH PT.
--- NOTE | 2022-04-15 19:09 | NUR ---
Transer note Recieved bedside report form RICKY Victor from [facility]. Pt transported on bipap to room at approx 1835, pt switched to v60 24/10 30% fio2 30% tidal volumes 400-600. Spo2 >94%, breathing shallow with minimal chest rise, ls dim t/o, resp rate 16-20. Pt groaning to verbal stimuli, no other response at this time. Pupils 3mm, equal and reactive. 3-4+ pitting edema noted to ble. Notified Dr Waterman of patient status, new orders for abg at 1999, [place] and new consult for Dr Real. Notified Dr Real of consult, pt status and vs, new order for Bumex 2mg iv now, sodium bicarb 1 amp iv now and d5w 3amp bicarb at 50ml/hr. Report given to oncoming rn.
[2022-04-15 20:00] LABS: PCO2 Arterial 58.1 mmHg (35-45); PO2 Arterial 69.1 mmHg (80-100)
[2022-04-15 20:01] LABS: pH Blood Arterial 7.27 (7.35-7.45)
[2022-04-15 20:02] LABS: Source, Urine Foley catheter
[2022-04-15 20:16] LABS: Blood, Urine Neg (Neg); Glucose Qualitative, Urine Neg (Neg); Ketones, Urine 1+ (Neg); Leukocyte Esterase, Urine 1+ (Neg); Nitrite, Urine Neg (Neg); Protein, Urine 2+ (Neg); Specific Gravity, Urine 1.025 (1.003-1.022); Urobilinogen, Urine 1+ (Normal)
[2022-04-15 20:25] LABS: Bilirubin, Urine 2+ (Neg)
[2022-04-15 20:26] LABS: Appearance, Urine Hazy (Clear); Color, Urine Amber (P-Yellow)
[2022-04-15 20:27] LABS: Amorphous Mod (0-Heavy); Hyaline Casts 0-2 /lpf (0-2); Mucus Light (0-Heavy)
[2022-04-15 20:28] LABS: Bacteria Mod /hpf; Red Blood Cells, Urine 0-2 /hpf (0-2); Renal Epithelial Rare /hpf (0-Rare); Squamous Epithelial Cells Few /hpf (Few); Transitional Epithelial Cells Rare /hpf (0-Rare); White Blood Cells, Urine 0-2 /hpf (0-5)
--- NOTE | 2022-04-15 20:50 | NUR ---
TRANSFER TO UNIT PT TO UNIT AT SHIFT CHANGE. CONFUSED. ON BIPAP. NOT FOLLOWING DIRECTION. HYPOTENSIVE. THIS RN RECEIVED REPORT FROM OSCAR Dsouza RN POST SHIFT HUDDLE. ORDERS RECEIVED TO PLACE CHOUDHARY, BICARB PUSH & GTT, GIVE BUMEX, (DR VILLA AWARE OF PT'S SBP IN 80'S AT THAT TIME AND PT'S INABILITY TO TAKE MIDODRINE DUE TO ASPIRATION RISK AT THAT TIME), AND AN ABG. DR VILLA TO ROOM SHORTLY AFTER, MORE ORDERS RECEIVED. 2049 - PT'S MENTATION HAS IMPROVED ENOUGH TO TAKE MIDODRINE, PT DID NOT TOLERATE THIS WELL AND COUGHED, CLINICAL JUDGEMENT FOR NOW IS LEADING TO PT BEING KEPT NPO UNTIL MENTATION IMPROVES MORE. PT TOLERATED BEING OFF MASK FOR 1 MINUTE TO TAKE MIDODRINE, DURING THIS TIME, SPO2 DROPPED TO 80%, LIPS NOTED TO BE CYANOTIC. MASK PLACED BACK ON ONCE IT WAS VERIFIED THAT PILL HAD BEEN SWALLOWED. FLUIDS INFUSING. CHOUDHARY SHOWS DARK TEA URINE. AWAITING NEXT BLOOD DRAW TO NOTIFY ALLEN OF RESULTS. BLOOD PRESSURE HAS IMPROVED, SBP >110 NOW.
--- NOTE | 2022-04-15 23:00 | NUR ---
ASSUMPTION OF CARE: RECIEVED REPORT FROM IN DIGITAL ASSET COORDINATOR, PATIENT ON BIPAP 24/10 AT 35% RR UNDER 20 SPO2 97%, AFIB, 90'S. IV'S BILAT FOREARM, SLEEPING, CHOUDHARY IN PLACE. SOFT BLOOD PRESSURE. IV'S FLUSHED. SODIUM BICARB RUNNING AT 50. WAS A TRANSFER FROM [facility]. MORNING LABS ORDERED BY NIGHT HOSPITALIST AND CBG ORDERS FOR Q6 DUE TO BEING NPO. PATIENT HAS BEEN SLEEPING, WAS UNABLE TO BE GIVEN THEIR XERALTO, MIDODRINE WAS ABLE TO BE SWALLOWED. PATIENT RPOSTIITONED Q2. NO OBVIOUS SIGN SOF CARDIAC DISTRESS, SOFTER BLOOD PRESSURES, BUT MAP >65. CHEMO CONTINUE TO MONITOR UNTIL SHIFT CHANGE CONCERNS: ANTICOAGULATION, XERALTO WAS UNABLE TO BE GIVEN DUE TO RESPIRATORY NEED. WILL INFORM DAY RN DURING SHIFT CHANGE.
[2022-04-16 04:18] LABS: Base Excess Venous 1.7 mmol/L; Bicarbonate Venous 24.9 mmol/L (24.0-30.0); PCO2 Venous 57.1 mmHg (38-42)
[2022-04-16 04:25] LABS: BASOPHILS ABSOLUTE AUTO 0.03 K/mm3 (0.00-0.23); BASOPHILS PERCENT AUTO 0 % (0-2); EOSINOPHILS ABSOLUTE AUTO 0.02 K/mm3 (0.00-0.68); EOSINOPHILS PERCENT AUTO 0 % (0-6); Hematocrit 42.8 % (37.0-53.0); Hemoglobin 12.1 g/dL (13.5-17.5); IMMATURE GRAN ABSOLUTE AUTO 0.08 K/mm3 (0.00-0.10); IMMATURE GRAN PERCENT AUTO 1 % (0-1); LYMPHOCYTES PERCENT AUTO 4 % (21-46); MONOCYTES ABSOLUTE AUTO 0.89 K/mm3 (0.16-1.47); MONOCYTES PERCENT AUTO 10 % (4-13); Mean Corpuscular HGB 22.3 pg (26.0-34.0); Mean Corpuscular HGB Conc 28.3 g/dL (31.5-36.5); Mean Corpuscular Volume 79 fL (80-100); Mean Platelet Volume 10.2 fL (9.1-12.4); NEUTROPHILS ABSOLUTE AUTO 7.78 K/mm3 (1.96-9.15); NEUTROPHILS PERCENT AUTO 85 % (41-73); NRBC ABSOLUTE 0.03 K/mm3 (0.00-0.02); NRBC Auto 0.3 /100 WBC (0.0-0.2); Platelet Count 206 K/mm3 (150-400); RDW Coefficient Variation 18.7 % (11.7-14.2); RDW Standard Deviation 51.4 fL (35.1-46.3); Red Blood Cell Count 5.43 M/mm3 (4.30-5.90)
--- NOTE | 2022-04-16 04:40 | NUR ---
END OF SHIFT: PAITNET HAS BEEN UNCHANGED FROM ASSUMPTION OF CARE. NO SIGNS OF ACUTE CARDIAC DISTRESS. PATIENT RESPONDS TO VERBAL STIMULI, IS UNABLE TO MAKE NEEDS KNOWN AT THIS TIME, BBIPAP 24/10 30% A COUPLE BREAKS FRO MOUTH SWABS AND REPOSITIONING WERE GIVEN THROUGH THE NIGHT, MULITPLE REPOSITIONED PREFORMED Q2, PATIENT IS VERY SLIGHTLY IMPROVED, STILL INFUSING 50 BICARB MORNING LABS PREFORMED THROUGH POWERGLIDE THAT WAS INSERTED, WILL CONTINUE TO MONITOR UNTIL SHIFT CHANGE.
[2022-04-16 04:46] LABS: Albumin, Blood 2.9 g/dL (3.4-5.0); Anion Gap 11 mmol/L (6-16); Blood Urea Nitrogen 86 mg/dL (8-24); Bun/Creatinine Ratio 38.2 (12.0-20.0); CO2, Blood 27 mmol/L (21-32); Calcium, Blood 9.2 mg/dL (8.5-10.1); Chloride, Blood 92 mmol/L (98-108); Creatinine, Blood 2.25 mg/dL (0.60-1.20); Glomerular Filtration Rate 32 (60-); Glucose, Blood 115 mg/dL (70-99); Phosphorus, Blood 6.6 mg/dL (2.5-4.9); Potassium, Blood 5.5 mmol/L (3.5-5.5); Sodium, Blood 130 mmol/L (136-145)
[2022-04-16 07:25] LABS: International Normalized Ratio 1.92; Prothrombin Time Results 19.3 Sec (9.7-11.5)
[2022-04-16 07:36] LABS: PCO2 Arterial 59.9 mmHg (35-45); PO2 Arterial 83.6 mmHg (80-100)
[2022-04-16 07:37] LABS: pH Blood Arterial 7.29 (7.35-7.45)
--- NOTE | 2022-04-16 10:14 | NUR ---
Pt resting in bed with his eyes closed and wearing BIPAP. Primary RN Susan at bedside. Pt's blood pressure has been on the low side. Concerns that Pt may not be able to take in PO at this time due to somnolence and respiratory status. Spoke with Dr Waterman and discussed case. Family may benefit from goals of care discussion. Called and spoke with Pt's daughter Bernie. Provided update and reviewed plan of care. Gentle discussion regarding goals of care including considering code status and comfort care. Bernie expresses concerns as she reports getting conflicting information and was told Pt was improving. Bernie sounds tearful over the phone and reports her and her brother are struggling with information and decision as they no longer have their mother. Offered emtional support and validated concerns. Bernie reports plan to visit today and is requesting further conversation with MD. Palliative Care will remain available for therapeutc visits.
--- NOTE | 2022-04-16 15:06 | NUR ---
UPDATE SPOKE WITH DR. PHAN ABOUT PT'S PLAN OF CARE WELL HIS STATUS. DR. PHAN REVIEWED THE PT'S MEDICATIONS AND ORDERED CHANGES TO THEIR ROUTES DUE TO THE PT BEING A HIGH ASPIRATION RISK. PT'S BiPAP SETTINGS WERE MODIFIED BY RT TO 22/8, FIO2 30%, BUR @ 16. PT IS HOLDING SPO2 >94 WITH THESE SETTINGS. BP IS STILL SOFT AND HOVERING 90-100'S. WILL CONTINUE TO MONITOR CLOSELY
[2022-04-16 16:43] LABS: PCO2 Arterial 63.1 mmHg (35-45); PO2 Arterial 86.1 mmHg (80-100); pH Blood Arterial 7.31 (7.35-7.45)
--- NOTE | 2022-04-16 19:25 | NUR ---
SHIFT SUMMARY PT IS VERY LETHARGIC AND REALLY ONLY AROUSABLE TO PAIN. FAMILY SPOKE WITH DR. PHAN AND CHANGED PT FROM FULL CODE TO DNR. PT'S ABG'S HAVE NOT SEEN MUCH CHANGE WITH pH IMPROVING SLIGHTLY, BUT CO2 HAS INCREASED OVER THE COURSE OF THE SHIFT. PT IS ON BiPAP 22/8 WITH FiO2 OF 30% AND SPO2 >94% ON THESE SETTINGS. PT IS ON BR WITH A 24HR URINE PROTEIN COLLECTIONS STARTING THIS PM. ORAL PERFORMED ORDERD. PT DEMONSTRATES LITTLE UO EVEN WITH INCREASING DOSES OF BUMEX. BP'S HAVE BEEN SOFT RUNNING 85-100'S. PT IS UNABLE TO SWALLOW ANY MEDS PO DUE TO EXTREME ASPIRATION RISK.
[2022-04-17 04:30] LABS: Hemoglobin 11.9 g/dL (13.5-17.5)
[2022-04-17 04:54] LABS: Albumin, Blood 3.2 g/dL (3.4-5.0); Anion Gap 12 mmol/L (6-16); Blood Urea Nitrogen 89 mg/dL (8-24); Bun/Creatinine Ratio 46.1 (12.0-20.0); CO2, Blood 30 mmol/L (21-32); Calcium, Blood 9.4 mg/dL (8.5-10.1); Chloride, Blood 92 mmol/L (98-108); Creatinine, Blood 1.93 mg/dL (0.60-1.20); Glomerular Filtration Rate 39 (60-); Glucose, Blood 105 mg/dL (70-99); Magnesium, Blood 2.7 mg/dL (1.6-2.4); Phosphorus, Blood 5.5 mg/dL (2.5-4.9); Potassium, Blood 4.5 mmol/L (3.5-5.5); Sodium, Blood 134 mmol/L (136-145)
--- NOTE | 2022-04-17 05:56 | NUR ---
SHIFT SUMMARY ASSUMED CARE OF PT AT 1900. PT IS ABLE TO NOD HEAD WITH UNDERSTANDING BUT IS NOT TALKING. PT AWAKE AND ASKED TO TAKE OFF MASK BUT WAS REDIRECTED AND FELL BACK ASLEEP. AT AROUND 0300 PT AWOKE ASKING FOR WATER. DISCUSSED CARE WITH RT AND PT WAS TAKEN OFF BIPAP FOR 1 HOUR. ORAL CARE AND BED CHAGE PERFORMED. PT TOLERATED DRINKING WATER WELL. PO MEDS VIANNEY EARLIER DUE TO LETHARGY. PT WENT BACK ON MASK AND IS TOLERATING IT WELL. HEART SOUNDS IRREGULAR. 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 LUNG SOUNDS VERY DIMINISHED AT BASES, BIPAP SETTINGS REMAIN 22/8 AT 30%. PT HAD SMALL BM WITH SHIFT, ABD IS VERY DISTENED AND FIRM. CHOUDHARY DRAINING CLEAR YELLOW URINE. PT WAS TOTAL CARE, TURNED Q2. PT REPORTED PAIN WITH MOVEMENT BUT NOT AT REAST. PT LLE IS WEEPING, AND RLE DRESSING C/D/I. PT BUTTOCK IS VERY EXCORIATED. MEPILEX TO COCCYX.
[2022-04-17 07:03] LABS: PCO2 Arterial 67.6 mmHg (35-45); PO2 Arterial 119 mmHg (80-100); pH Blood Arterial 7.31 (7.35-7.45)
--- NOTE | 2022-04-17 07:21 | NUR ---
ASSUMED CARE OF PT AT 0700. PT RESTING QUIETLY WITH BIPAP IN PLACE. FIO2 DECREASED FROM 45% TO 35% SPO2 96%. PO FLUIDS PROVIDED, PT AWAKES AND THEN FALLS BACK TO SLEEP. DR VILLA CALLED WITH ABG RESULTS, BICARB GTT DC'D PER HIS ORDERS. CALL LIGHT IN REACH, PT DEMONSTRATES ABILITY TO USE FOR NEEDS, WILL CONTINUE TO MONITOR.
[2022-04-18 04:45] LABS: Hematocrit 41.9 % (37.0-53.0); Hemoglobin 11.6 g/dL (13.5-17.5)
[2022-04-18 05:13] LABS: Albumin, Blood 3.6 g/dL (3.4-5.0); Anion Gap 10 mmol/L (6-16); Blood Urea Nitrogen 81 mg/dL (8-24); CO2, Blood 35 mmol/L (21-32); Calcium, Blood 9.5 mg/dL (8.5-10.1); Chloride, Blood 91 mmol/L (98-108); Creatinine, Blood 1.35 mg/dL (0.60-1.20); Glomerular Filtration Rate 59 (60-); Glucose, Blood 83 mg/dL (70-99); Magnesium, Blood 2.6 mg/dL (1.6-2.4); Phosphorus, Blood 4.5 mg/dL (2.5-4.9); Potassium, Blood 3.6 mmol/L (3.5-5.5); Sodium, Blood 136 mmol/L (136-145)
--- NOTE | 2022-04-18 06:08 | NUR ---
SHIFT SUMMARY ASSUMED CARE OF PT AT 1900. PT IS A/OX3. HEART SOUNDS IRREGULAR. PT RHYTHMN STILL SHOWS ST DEPRESSION AND AFLUTTER. LUNG SOUNDS DIMINSHED. BIPAP SETTINGS REMAIN THE SAME. 22/8 @ 30%. PT TOLERATED BREAKS WITH 4L NC/ 6L WITH ROLLING. PT COMPLAINED OF NOT WANTING THE MASK BUT THIS NURSE EDUCATINED ABOUT WEARING IT ONE MORE NIGHT PER HIS FAMILY REQUEST AND TO HOPEFULLY IMPROVE HIS LABS. PT AGREED. PT HAD IS STILL FIRM BUT NOT MUCH YESTERDAY. PT HAS SKIN TEARS UNDER HIS PANNUS. LEGS NOT WEEPING MUCH. CHOUDHARY DRAINING CLEAR YELLOW URINE. PT ONLY C/O PAIN WHILE ROLLING, MEDICATED PER EMAR. PT IS TALKING MORE AND CURRENTLY SITTING UP WATCHING TV IN BED.
[2022-04-18 13:14] LABS: Base Excess Venous 13.7 mmol/L; Bicarbonate Venous 34.7 mmol/L (24.0-30.0); PCO2 Venous 66.7 mmHg (38-42); pH Blood Venous 7.37 (7.34-7.37)
--- NOTE | 2022-04-18 18:18 | NUR ---
Shift Summary Pt alert this am, oriented to self, month and family. Pt on 4l o2 via nc this am, titrated to 3l o2, replaced bipap for approx 30 minutes at 11am, Dr at bedside, new order to place back on o2 and recheck vbg one hour later, notified Dr Koenig , no new order, bipap replaced this after noon at approx 1330, and pt remaind on it until 1820. Pt more awake this evening. Pt reports pain "everywhere" this am, medciated X1 per emar. Pt denies chest pain/pressure, sob, nausea, dizziness and numb/tingling. Tele continues aflutter, bp stable. Pt receiving albumin and iv lasix t/o shift. other vss. No other acute changes noted. Will continue to monitor.
--- NOTE | 2022-04-18 20:01 | NUR ---
physician in to see patient. He has slight improvement so wants to stay the course with care. Family in to see pt daughter brought her baby to visit him. They are emotional and very fatigued. They are also loving and very understadning of his prognosis. We had a gentle and productive conversation on how it is not a straight trajectory. That he will wax and wane. the understnd how sick he is. IF he improves more daughter would like us to help him understand how sick he is. his stister is flying in tomorrow. Suggested weh just stay the course and have good visits and see how he reponds but goal is hospice care to reduce suffering and support for family.
[2022-04-19 03:31] LABS: Hematocrit 39.9 % (37.0-53.0); Hemoglobin 10.9 g/dL (13.5-17.5)
[2022-04-19 03:46] LABS: Albumin, Blood 3.6 g/dL (3.4-5.0); Anion Gap 7 mmol/L (6-16); Blood Urea Nitrogen 67 mg/dL (8-24); Bun/Creatinine Ratio 67.7 (12.0-20.0); CO2, Blood 39 mmol/L (21-32); Calcium, Blood 9.5 mg/dL (8.5-10.1); Chloride, Blood 92 mmol/L (98-108); Creatinine, Blood 0.99 mg/dL (0.60-1.20); Glomerular Filtration Rate 86 (60-); Glucose, Blood 123 mg/dL (70-99); Magnesium, Blood 2.3 mg/dL (1.6-2.4); Phosphorus, Blood 2.9 mg/dL (2.5-4.9); Potassium, Blood 3.1 mmol/L (3.5-5.5); Sodium, Blood 138 mmol/L (136-145)
--- NOTE | 2022-04-19 05:07 | NUR ---
END SHIFT SUMMARY PT HAS HAD ISSUES WITH HR AND BLOOD PRESSER. MD COBIAN CALLED AND LABETOL 10 WAS GIVEN X2 DOSE HR IS LOW 100 AND BP 150'S /100. PT HAS BEEN UN ABLE TO TAKE HOME BP MEDS BECAUSE OF NPO STATUS. PT COULD BENIFIT FROM A SCHEDULED IV BB. BREATH SOUNDS ARE COURSE THROUG OUT CHEST PT AND ORAL CARE ORDERED. PT HAS LOW TOLERNCE FOR NT SUCTION AND ORAL SUCTION. PT TMAX WAS 101.5 MO TYLENOL WAS GIVEN X1. WILL CONTINUE TO MONITOR AND REPORT TO ON COMMING RN
--- NOTE | 2022-04-19 07:16 | NUR ---
ASSUMED CARE: PT ON BIPAP WITH SETTINGS 22/8 AND 45% FIO2. AFLUTTER ON TELE IN THE 90S AT THIS TIME. NO ACUTE NEEDS OR CONCERNS.
--- NOTE | 2022-04-19 17:51 | NUR ---
SHIFT SUMMARY: PT HAS TOLERATED BEING OFF BIPAP FOR LARGE CHUNKS OF TIME THIS SHIFT. USES BIPAP WITH SLEEP AT 22/8 WITH 45% FIO2. 3L NC OTHERWISE. AFLUTTER IN 90S ALL SHIFT. FAMILY AT BEDSIDE. NO ACUTE NEEDS AT THIS TIME.
[2022-04-20 05:16] LABS: BASOPHILS ABSOLUTE AUTO 0.03 K/mm3 (0.00-0.23); BASOPHILS PERCENT AUTO 1 % (0-2); EOSINOPHILS ABSOLUTE AUTO 0.24 K/mm3 (0.00-0.68); EOSINOPHILS PERCENT AUTO 5 % (0-6); Hematocrit 38.9 % (37.0-53.0); Hemoglobin 10.7 g/dL (13.5-17.5); IMMATURE GRAN ABSOLUTE AUTO 0.03 K/mm3 (0.00-0.10); IMMATURE GRAN PERCENT AUTO 1 % (0-1); LYMPHOCYTES ABSOLUTE AUTO 0.42 K/mm3 (0.84-5.20); LYMPHOCYTES PERCENT AUTO 8 % (21-46); MONOCYTES ABSOLUTE AUTO 0.77 K/mm3 (0.16-1.47); MONOCYTES PERCENT AUTO 15 % (4-13); Mean Corpuscular HGB 21.7 pg (26.0-34.0); Mean Corpuscular HGB Conc 27.5 g/dL (31.5-36.5); Mean Corpuscular Volume 79 fL (80-100); Mean Platelet Volume 10.1 fL (9.1-12.4); NEUTROPHILS PERCENT AUTO 71 % (41-73); NRBC ABSOLUTE 0.13 K/mm3 (0.00-0.02); NRBC Auto 2.5 /100 WBC (0.0-0.2); Platelet Count 134 K/mm3 (150-400); RDW Coefficient Variation 18.8 % (11.7-14.2); Red Blood Cell Count 4.92 M/mm3 (4.30-5.90); White Blood Cell Count 5.19 K/mm3 (4.00-11.30)
[2022-04-20 05:42] LABS: Albumin, Blood 3.4 g/dL (3.4-5.0); Albumin/Globulin Ratio 0.8 (0.8-1.8); Bilirubin, Total 1.6 mg/dL (0.1-1.0); Bun/Creatinine Ratio 74.1 (12.0-20.0); Calcium, Blood 9.5 mg/dL (8.5-10.1); Creatinine, Blood 0.88 mg/dL (0.60-1.20); Globulin, Blood 4.1 g/dL (2.2-4.0); Magnesium, Blood 1.9 mg/dL (1.6-2.4); Phosphorus, Blood 2.1 mg/dL (2.5-4.9); Potassium, Blood 3.7 mmol/L (3.5-5.5); Total Protein, Blood 7.5 g/dL (6.4-8.2)
--- NOTE | 2022-04-20 07:18 | NUR ---
SHIFT SUMMARY PATIENT ALERT AND ORIENTED, ABLE TO MAKE NEEDS KNOWN TO STAFF, USES CALL LIGHT APPROPRIATLEY. VSS, PATIENT ON 3L NC FOR BRIEF PERIODS OF TIME BUT UTILIZES BIPAP MORE D/T CO2 RETENTION, O2 SAT >90%. PATIENT DENIES CP OR SOB DURING THE NIGHT. MEDICATED PER EMAR FOR PAIN. CHOUDHARY IN PLACE DRAINING DARK YELLOW URINE TO GRAVITY. NO SIGNIFICANT CHANGES THIS SHIFT, WILL REPORT TO DAY SHIFT RN.
[2022-04-20 09:02] LABS: PCO2 Arterial 74.3 mmHg (35-45); PO2 Arterial 72.1 mmHg (80-100); pH Blood Arterial 7.36 (7.35-7.45)
--- NOTE | 2022-04-20 17:27 | NUR ---
SHIFT SUMMARY PT REMAINS ALERT AND ORIENTED. PT IS LETHARGIC AT TIMES. BP STABLE. HR AFLUTTER WITH BBB 90'S. O2 SATS HAVE REMAINED ABOVE 90%. PT ON 2L NC MOST OF SHIFT AND PLACED ON BIPAP FOR RESTING ABOUT 4 HOURS THIS SHIFT. CHOUDHARY PATENT AND DRAINING DARK CALLI URINE. PT HAD ONE INCONTINENT BM THIS SHIFT. PT PROVIDED BED BATH AND LINEN CHANGE TODAY. MULTIPLE SKIN WOUNDS CLEANED AND DRESSED. FAMILY UPDATED THIS SHIFT. WILL CONTINUE TO MONITOR AND REPORT TO ONCOMING RICKY
[2022-04-21 04:42] LABS: BASOPHILS ABSOLUTE AUTO 0.03 K/mm3 (0.00-0.23); BASOPHILS PERCENT AUTO 1 % (0-2); EOSINOPHILS ABSOLUTE AUTO 0.31 K/mm3 (0.00-0.68); EOSINOPHILS PERCENT AUTO 6 % (0-6); Hematocrit 40.6 % (37.0-53.0); Hemoglobin 11.1 g/dL (13.5-17.5); IMMATURE GRAN ABSOLUTE AUTO 0.05 K/mm3 (0.00-0.10); IMMATURE GRAN PERCENT AUTO 1 % (0-1); LYMPHOCYTES ABSOLUTE AUTO 0.42 K/mm3 (0.84-5.20); LYMPHOCYTES PERCENT AUTO 8 % (21-46); MONOCYTES ABSOLUTE AUTO 0.84 K/mm3 (0.16-1.47); MONOCYTES PERCENT AUTO 16 % (4-13); Mean Corpuscular HGB 21.8 pg (26.0-34.0); Mean Corpuscular HGB Conc 27.3 g/dL (31.5-36.5); Mean Corpuscular Volume 80 fL (80-100); Mean Platelet Volume 10.7 fL (9.1-12.4); NEUTROPHILS ABSOLUTE AUTO 3.78 K/mm3 (1.96-9.15); NEUTROPHILS PERCENT AUTO 70 % (41-73); NRBC Auto 1.8 /100 WBC (0.0-0.2); Platelet Count 141 K/mm3 (150-400); RDW Coefficient Variation 19.2 % (11.7-14.2); RDW Standard Deviation 54.2 fL (35.1-46.3); White Blood Cell Count 5.43 K/mm3 (4.00-11.30)
[2022-04-21 04:51] LABS: Albumin, Blood 3.4 g/dL (3.4-5.0); Albumin/Globulin Ratio 0.8 (0.8-1.8); Bilirubin, Total 1.4 mg/dL (0.1-1.0); Bun/Creatinine Ratio 66.7 (12.0-20.0); Calcium, Blood 9.5 mg/dL (8.5-10.1); Creatinine, Blood 1.02 mg/dL (0.60-1.20); Globulin, Blood 4.3 g/dL (2.2-4.0); Magnesium, Blood 2.1 mg/dL (1.6-2.4); Phosphorus, Blood 2.4 mg/dL (2.5-4.9); Potassium, Blood 3.9 mmol/L (3.5-5.5); Total Protein, Blood 7.7 g/dL (6.4-8.2)
--- NOTE | 2022-04-21 05:47 | NUR ---
SHIFT SUMMARY PATIENT ALERT, BUT IS MORE LETHARGIC THIS SHIFT. ANSWERS ORIENTATION QUESTIONS CORRECTLY BUT IS FORGETFUL AND YELLS OUT AT TIMES. VSS, PATIENT ON 2L NC FOR SHORT PERIODS OF TIME, WEARING BIPAP OTHERWISE. TITRATED TO 22/8 30% FIO2, SPO2 >90%. CHOUDHARY IN PLACE DRAINING DARK YELLOW URINE TO GRAVITY. UNNA BOOTS APPLIED THIS SHIFT. NO OTHER SIGNIFICANT CHANGES, WILL REPORT TO DAY SHIFT RN.
--- NOTE | 2022-04-21 09:14 | NUR ---
WOUND CENTER IN THE ROOM AT THIS TIME.
--- NOTE | 2022-04-21 12:00 | NUR ---
tele notified this rn of 6 beat run of vtach, pt currently asleep in bed. placed call to provider.
--- NOTE | 2022-04-21 16:16 | NUR ---
SHIFT SUMMARY PT OFF BIPAP SINCE BEFORE LUNCH PER ORDERS. PT TOLERATING WELL, REMAINS ORIENTED X4 BUT SLEEPING MORE. CURRENTLY ON 1L NASAL CANULA SATS 90-92%. PT DENIES SOB. PAIN HAS BEEN INCREASING DURING SHIFT. LEGS INCREASING SWELLING. REQUIRED IV MEDICATION AND NEW ORDERS RECIEVED. PLAN IS TO CONTINUE NASAL CANULA AND MONITOR FOR DECLINE, THEN PLAN TO TRANSITION TO COMFORT CARE. FAMILY AWARE. NEW DRESSINGS APPLIED BY WOUND CARE NURSE.
--- NOTE | 2022-04-21 17:36 | NUR ---
PT BP IN THE 80'S WENT TO GIVE PRN MIDODRINE PT DIFFICULT TO GET TO SWALLOW PILLS. HR ALSO DOWN TO 50'S/60'S ON MONITOR. NOTIFIED DR SHAH OF INCREASED LETHARGY AND VITALS. PLAN IS TO TRANSITION TO COMFORT CARE AT THIS TIME. NOTIFIED PALLIATIVE CARE AND PT'S DTBev GONGORA.
--- NOTE | 2022-04-21 19:05 | NUR ---
pt declining dusky sats dropping somulent. family ready to transtion to comfort. they were greatful for the extra time. Pt minmally verbal at times, moaning more carevully medicated for air hunger. daughter at bedside will remain for support.
--- NOTE | 2022-04-22 05:11 | NUR ---
FINAL DISCHARGE CALL PLACED TO DAUGHTER AROUND 0400 TO NOTIFY THAT THERE WAS A CHANGE IN THE PATIENT'S STATUS. THIS RN AND HEAD HOUSEKEEPER AT BEDSIDE WITH PATIENT DURING FINAL MOMENTS. TIME OF 0502. CAROTID PULSES CHECKED, NO HEART TONES PRESENT. SECOND RN FOR VERIFICATION. DAUGHTER AT BEDSIDE AT 0505.
== END 2022-04-22 08:25 | DRG 871 ==
LOC: ER 19:48 → ICUW 22:45 → MEDS 22:45 → ICUE 22:45 → PCU 22:45 → ICUE 23:15 → MEDS 04-13 10:25 → PCU 04-15 19:00
PROVIDERS: Family Medicine; Hospitalist; Internal Medicine; Internal Medicine Nephrology; Student in an Organized Health Care Education/Training Program; ADMIT Internal Medicine
PROC: 3E03329 Introduction of Other Anti-infective into Peripheral Vein, Percutaneous Approach (ICD-10-PCS; principal; 2022-04-11)
PROC: 5A09457 Assistance with Respiratory Ventilation, 24-96 Consecutive Hours, Continuous Positive Airway Pressure (ICD-10-PCS; 2022-04-16)
DX: A41.9 Sepsis, unspecified organism (principal); J18.9 Pneumonia, unspecified organism; J96.21 Acute and chronic respiratory failure with hypoxia; J96.22 Acute and chronic respiratory failure with hypercapnia; R65.21 Severe sepsis with septic shock; E66.2 Morbid (severe) obesity with alveolar hypoventilation; I50.32 Chronic diastolic (congestive) heart failure; I13.0 Hypertensive heart and chronic kidney disease with heart failure and stage 1 through stage 4 chronic kidney disease, or unspecified chronic kidney disease; N17.9 Acute kidney failure, unspecified; J44.0 Chronic obstructive pulmonary disease with (acute) lower respiratory infection; Z68.43 Body mass index [BMI] 50.0-59.9, adult; N25.81 Secondary hyperparathyroidism of renal origin; E87.1 Hypo-osmolality and hyponatremia; I48.21 Permanent atrial fibrillation; L03.115 Cellulitis of right lower limb; Z66 Do not resuscitate; Z51.5 Encounter for palliative care; Z20.822 Contact with and (suspected) exposure to COVID-19; I95.1 Orthostatic hypotension; N40.0 Benign prostatic hyperplasia without lower urinary tract symptoms; I27.20 Pulmonary hypertension, unspecified; N18.30 Chronic kidney disease, stage 3 unspecified; D63.1 Anemia in chronic kidney disease; E11.22 Type 2 diabetes mellitus with diabetic chronic kidney disease; E11.21 Type 2 diabetes mellitus with diabetic nephropathy; E78.00 Pure hypercholesterolemia, unspecified; K21.9 Gastro-esophageal reflux disease without esophagitis; G89.4 Chronic pain syndrome; E11.40 Type 2 diabetes mellitus with diabetic neuropathy, unspecified; I87.2 Venous insufficiency (chronic) (peripheral); Z88.1 Allergy status to other antibiotic agents; Z79.899 Other long term (current) drug therapy; Z79.01 Long term (current) use of anticoagulants; Z79.51 Long term (current) use of inhaled steroids; Z79.82 Long term (current) use of aspirin; Z79.891 Long term (current) use of opiate analgesic; Z79.2 Long term (current) use of antibiotics; Z79.52 Long term (current) use of systemic steroids; Z98.890 Other specified postprocedural states; Z89.422 Acquired absence of other left toe(s); Z99.81 Dependence on supplemental oxygen; F41.8 Other specified anxiety disorders; E87.6 Hypokalemia; Z87.891 Personal history of nicotine dependence; Z82.49 Family history of ischemic heart disease and other diseases of the circulatory system; E11.621 Type 2 diabetes mellitus with foot ulcer; L97.519 Non-pressure chronic ulcer of other part of right foot with unspecified severity
CPT/HCPCS: 0241U; 36415; 36600; 51702; 71045; 76770; 80048; 80053; 80069; 81001; 81050; 82533; 82803; 82947; 83605; 83735; 83880; 84100; 84132; 84145; 84156; 84484; 85014; 85018; 85025; 85610; 87040; 87070; 87086; 87205; 93005; 93010; 94640; 94660; 94664; 94760; 94762; 96365; 96375; 97161; 99285-25; A9270; C1751; C9113; J0456; J0696; J1940; J2270; J2405; J3480; J7030; J7050; J7060; J7070; J7512; P9047